=== PATIENT | female | born 1945 | race Caucasian/White ===

== ENCOUNTER 2019-11-15 10:47 | Outpatient (CLI) | payer MEDICARE, SELFPAY ==
[2019-11-15 10:58] LABS: Add Urine Microscopic? YES; Appearance Urine Clear (Clear); Bilirubin Urine Negative (Negative); Blood Urine Negative (Negative); Color Urine Yellow (Yellow); Glucose Urine UA Negative (Negative); Ketones Urine Negative (Negative); Leukocyte Esterase Ur Trace (Negative); Nitrate Urine Negative (Negative); Protein Urine Negative (Negative); Specific Grav Ur 1.025 (1.010-1.020); Urobilinogen Urine 0.2 mg/dL (0.2-1.0); pH Urine 5.5 (5.0-8.0)
[2019-11-15 11:13] LABS: RBC Urine 0-2 /hpf (0-2)
[2019-11-15 11:14] LABS: Bacteria Urine 2+ /hpf; Mucus Urine Few /lpf; Squamous Epithelial Cell Urine Few /hpf (Few)
[2019-11-15 12:48] LABS: Alanine Aminotransferase 16 U/L (14-59); Albumin Level 4.1 g/dL (3.4-5.0); Alkaline Phosphatase 87 U/L (46-116); Anion Gap 12.5 mmol/L (7-16); Aspartate Amino Transferase 23 U/L (15-37); Bilirubin,Total 0.6 mg/dL (0.00-1.00); Blood Urea Nitrogen 21 mg/dL (7-18); Calcium 10.1 mg/dL (8.5-10.1); Carbon Dioxide 30 mmol/L (21-32); Chloride 105 mmol/L (98-108); Cholesterol 178 mg/dL (0-200); Estimated Glomerular Filt Rate 54; Glucose 77 mg/dL (70-99); HDL Direct 75 mg/dL (40-60); LDL Cholesterol Calculated 94 mg/dL (<130); Osmolality Calculated 298 mOsm/kg (285-295); Potassium 4.5 mmol/L (3.5-5.1); Sodium 143 mmol/L (136-145); Total Protein 6.8 g/dL (6.4-8.2); Triglycerides 43 mg/dL (0-150)
[2019-11-15 13:13] LABS: Basophils Absolute Auto 0.06 K/mm3 (0.00-0.10); Basophils Percent Auto 0.9 % (0.0-1.0); Eosinophils Absolute Auto 0.18 K/mm3 (0.02-0.50); Eosinophils Percent Auto 2.6 % (1.0-6.0); Hematocrit 45.2 % (35.0-42.0); Hemoglobin 14.9 g/dL (11.7-13.8); Immature Granulocyte Absolute 0.01 K/mm3 (0.00-0.00); Immature Granulocyte Percent A 0.1 % (0.0-0.0); Lymphocytes Absolute Auto 2.45 K/mm3 (1.10-4.50); Lymphocytes Percent Auto 35.8 % (18.0-42.0); Mean Corpuscular Hemoglobin 30.3 pg (27.0-31.0); Mean Corpuscular Volume 92.1 fL (78.0-102.0); Mean Platelet Volume 12.3 fl (9.2-11.8); Monocytes Absolute Auto 0.52 K/mm3 (0.10-0.90); Monocytes Percent Auto 7.6 % (2.0-11.0); Neutrophils Absolute Auto 3.6 K/mm3 (1.7-7.2); Platelet Count Result 162 K/mm3 (150-420); Red Blood Count 4.91 M/mm3 (4.20-5.40); Red Cell Distribution Width 12.2 % (11.6-14.4); White Blood Count 6.9 K/mm3 (4.8-10.8)
[2019-11-20 20:35] LABS: Vitamin D 25 Hydroxy 37 ng/mL (30-100)
== END 2019-11-15 10:48 | disposition home or self-care (01) ==
LOC: CHSLAB 10:48
PROVIDERS: PCP Internal Medicine; Visit Provider Internal Medicine
DX: E78.2 Mixed hyperlipidemia (principal); I10 Essential (primary) hypertension; K21.9 Gastro-esophageal reflux disease without esophagitis; E55.9 Vitamin D deficiency, unspecified
CPT/HCPCS: 36415; 80053; 80061; 81001; 82306; 85025

== ENCOUNTER 2019-12-18 17:33 | Outpatient (CLI) | payer MEDICARE, SELFPAY ==
--- NOTE | ~2019-12-18 | XR_ITS ---
EXAMINATION: XR chest 2V DATE: 12/18/2019 17:52 INDICATION: Cough and fever TECHNIQUE: PA and lateral views of the chest were obtained. COMPARISON: Chest radiograph dated 10/05/1970 FINDINGS: Change mild hyperexpansion of lungs with mild biapical pleural-parenchymal scarring. Calcified nodule at the right lung base consistent with old granulomatous disease. No new airspace opacities, pulmona ry edema, pleural effusion or pneumothorax. The cardiomediastinal silhouette is normal. Mild thoracic spondylosis. There are few surgical clips projecting over the right breast/anterior right chest wall . IMPRESSION: 1. No acute cardiopulmonary disease. Reviewed, dictated and finalized at location A. 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
[2019-12-18 17:48] LABS: Basophils Absolute Auto 0.07 K/mm3 (0.00-0.10); Eosinophils Absolute Auto 0.16 K/mm3 (0.02-0.50); Eosinophils Percent Auto 2.3 % (1.0-6.0); Hematocrit 46.7 % (35.0-42.0); Hemoglobin 15.5 g/dL (11.7-13.8); Immature Granulocyte Absolute 0.01 K/mm3 (0.00-0.00); Immature Granulocyte Percent A 0.1 % (0.0-0.0); Immature Platelet Fraction Pct 4.1 % (1.0-7.0); Lymphocytes Absolute Auto 1.61 K/mm3 (1.10-4.50); Lymphocytes Percent Auto 23.4 % (18.0-42.0); Mean Corpuscular HGB Conc 33.2 g/dL (32.0-36.0); Mean Corpuscular Hemoglobin 30.2 pg (27.0-31.0); Mean Platelet Volume 11.2 fl (9.2-11.8); Monocytes Absolute Auto 0.78 K/mm3 (0.10-0.90); Monocytes Percent Auto 11.3 % (2.0-11.0); Neutrophils Absolute Auto 4.3 K/mm3 (1.7-7.2); Neutrophils Percent Auto 61.9 % (50.0-70.0); Platelet Count Result 126 K/mm3 (150-420); Red Blood Count 5.13 M/mm3 (4.20-5.40); Red Cell Distribution Width 12.2 % (11.6-14.4); White Blood Count 6.9 K/mm3 (4.8-10.8)
[2019-12-18 18:00] LABS: Alanine Aminotransferase 18 U/L (14-59); Albumin Level 3.9 g/dL (3.4-5.0); Alkaline Phosphatase 93 U/L (46-116); Anion Gap 14.2 mmol/L (7-16); Aspartate Amino Transferase 21 U/L (15-37); Bilirubin,Total 0.6 mg/dL (0.00-1.00); Blood Urea Nitrogen 19 mg/dL (7-18); Calcium 10.1 mg/dL (8.5-10.1); Carbon Dioxide 27 mmol/L (21-32); Chloride 101 mmol/L (98-108); Estimated Glomerular Filt Rate 47; Glucose 116 mg/dL (70-99); Osmolality Calculated 289 mOsm/kg (285-295); Potassium 4.2 mmol/L (3.5-5.1); Sodium 138 mmol/L (136-145); Total Protein 7.5 g/dL (6.4-8.2)
[2019-12-18 18:06] LABS: Influenza Control Valid (Valid)
== END 2019-12-18 17:34 | disposition home or self-care (01) ==
LOC: CHSLAB 17:35
PROVIDERS: PCP Internal Medicine; Visit Provider Internal Medicine
DX: R50.9 Fever, unspecified (principal); R05 Cough
CPT/HCPCS: 36415; 71046; 80053; 85025; 85055; 87804

== ENCOUNTER 2020-02-21 13:23 | Outpatient (CLI) | payer MEDICARE, SELFPAY ==
--- NOTE | ~2020-02-21 | XR_ITS ---
XR chest 2V 02/21/2020 13:58 Indication: Fever. History of breast cancer. Procedure: 2 view chest Comparison: Comparison to multiple prior studies sequentially, with oldest reviewed study dated 11/09. Findings: Heart size normal. There are bilateral peripheral interstitial changes of the lung bases. T he lungs are hyperinflated which is consistent with, but not diagnostic of chronic obstructive pulmon timothy disease. No pleural effusion, edema or pneumothorax. Impression: 1: Bilateral peripheral interstitial changes primarily in the lung bases which may reflect atelectasi s, fibrosis or atypical pneumonia. Reviewed, dictated and finalized at location A. Impression: 1: Bilateral peripheral interstitial changes primarily in the lung bases which may reflect atelectasis, fibrosis or atypical pneumonia.
[2020-02-21 13:40] LABS: Basophils Absolute Auto 0.07 K/mm3 (0.00-0.10); Basophils Percent Auto 0.9 % (0.0-1.0); Eosinophils Absolute Auto 0.65 K/mm3 (0.02-0.50); Hematocrit 42.1 % (35.0-42.0); Hemoglobin 14.1 g/dL (11.7-13.8); Immature Granulocyte Absolute 0.01 K/mm3 (0.00-0.00); Immature Granulocyte Percent A 0.1 % (0.0-0.0); Lymphocytes Absolute Auto 1.79 K/mm3 (1.10-4.50); Mean Corpuscular HGB Conc 33.5 g/dL (32.0-36.0); Mean Corpuscular Hemoglobin 30.3 pg (27.0-31.0); Mean Corpuscular Volume 90.5 fL (78.0-102.0); Mean Platelet Volume 10.9 fl (9.2-11.8); Monocytes Percent Auto 7.4 % (2.0-11.0); Neutrophils Percent Auto 61.6 % (50.0-70.0); Platelet Count Result 167 K/mm3 (150-420); Red Blood Count 4.65 M/mm3 (4.20-5.40); Red Cell Distribution Width 12.4 % (11.6-14.4); White Blood Count 8.2 K/mm3 (4.8-10.8)
[2020-02-21 13:44] LABS: Add Urine Microscopic? YES; Appearance Urine Clear (Clear); Bilirubin Urine Negative (Negative); Blood Urine Negative (Negative); Color Urine Yellow (Yellow); Glucose Urine UA Negative (Negative); Ketones Urine Trace (Negative); Leukocyte Esterase Ur Negative (Negative); Nitrate Urine Negative (Negative); Protein Urine Trace (Negative); Specific Grav Ur 1.025 (1.010-1.020); Urobilinogen Urine 0.2 mg/dL (0.2-1.0); pH Urine 5.5 (5.0-8.0)
[2020-02-21 13:49] LABS: Bacteria Urine 2+ /hpf; Mucus Urine Few /lpf; RBC Urine 0-2 /hpf (0-2); Squamous Epithelial Cell Urine Few /hpf (Few)
[2020-02-21 13:56] LABS: Alanine Aminotransferase 18 U/L (14-59); Albumin Level 3.4 g/dL (3.4-5.0); Alkaline Phosphatase 106 U/L (46-116); Anion Gap 12.9 mmol/L (7-16); Aspartate Amino Transferase 17 U/L (15-37); Bilirubin,Total 0.4 mg/dL (0.00-1.00); Blood Urea Nitrogen 23 mg/dL (7-18); Calcium 10.2 mg/dL (8.5-10.1); Carbon Dioxide 27 mmol/L (21-32); Chloride 105 mmol/L (98-108); Estimated Glomerular Filt Rate 50; Glucose 145 mg/dL (70-99); Osmolality Calculated 298 mOsm/kg (285-295); Potassium 3.9 mmol/L (3.5-5.1); Sodium 141 mmol/L (136-145); Total Protein 6.9 g/dL (6.4-8.2)
== END 2020-02-21 13:24 | disposition home or self-care (01) ==
LOC: CHSLAB 13:25
PROVIDERS: PCP Internal Medicine; Visit Provider Internal Medicine
DX: R50.9 Fever, unspecified (principal)
CPT/HCPCS: 36415; 71046; 80053; 81001; 85025; 87040; 87086

== ENCOUNTER 2020-04-10 07:05 | Emergency (ER) | payer MEDICARE, SELFPAY ==
--- NOTE | ~2020-04-10 | US_ITS ---
EXAMINATION: US right upper quadrant DATE: 04/10/2020 10:10 INDICATION: Upper abdominal pain. TECHNIQUE: Multiple grayscale and Doppler ultrasound images of the abdomen were obtained. COMPARISON: CT abdomen and pelvis 04/10/2020 FINDINGS: The visualized portions of the head and body of the pancreas are normal. There are cysts in the liver measuring up to 3.8 cm. There is normal flow in main portal vein. The gallbladder is diste nded and contains sludge. No gallstones or gallbladder wall thickening. There was no sonographic Murp hy sign. The common duct measures 7 mm, which is normal for age. IMPRESSION: 1. Gallbladder sludge. Gallbladder distention may be secondary to fasting. No gallstones, gallbladder wall thickening, or sonographic Puente sign to suggest acute cholecystitis. Reviewed, dictated and finalized at location A. IMPRESSION: 1. Gallbladder sludge. Gallbladder distention may be secondary to fasting. No g allstones, gallbladder wall thickening, or sonographic Puente sign to suggest a cute cholecystitis.
--- NOTE | ~2020-04-10 | CT_ITS ---
EXAMINATION: CT abdomen pelvis w con INDICATION: Upper abdominal pain TECHNIQUE: Computed tomographic images of the abdomen and pelvis were obtained after the administrati on of 100 cc of Omnipaque 350 intravenous contrast. The dose-length product (DLP) was 865.42 mGy-cm. Automated exposure control and iterative reconstruction technique were employed. COMPARISON: 08/08/2008 FINDINGS: A calcified nodule of the right lower lobe is consistent with old granulomatous disease. Th ere is mild dependent atelectasis. The heart size is normal. Cysts of the liver measure up to 3.8 cm. The spleen, pancreas, and adrenal glands are normal. There is mild intrahepatic and extrahepatic macario iary dilatation. The common bile duct measures up to 9 mm. There is mild gallbladder distention with questionable pericholecystic fat stranding. Cysts of the kidneys measure up to 1.5 cm on the left. No pathologically enlarged abdominal or pelvic lymph nodes are identified. There is a fat-containing um bilical hernia. Colonic diverticulosis is present without evidence of diverticulitis. There is no stone e intraperitoneal gas or evidence of bowel obstruction. IMPRESSION: 1. Mild gallbladder distention, possible pericholecystic fat stranding and mild intrahepatic and extr ahepatic biliary dilatation. Findings could reflect acute cholecystitis with choledocholithiasis alth ough no definite biliary stone or stricture is identified. Consider further evaluation with anaoun d. Reviewed, dictated and finalized at location A. IMPRESSION: 1. Mild gallbladder distention, possible pericholecystic fat stranding and mild intrahepatic and extrahepatic biliary dilatation. Findings could reflect acute cholecystitis with choledocholithiasis although no definite biliary stone or s tricture is identified. Consider further evaluation with ultrasound.
[2020-04-10 07:05] VITALS: BP 175/89; PULSE 67; RESP 18; TEMP 35.5; O2SAT 98
--- NOTE | 2020-04-10 07:17 | ECG_ITS ---
Measurements Intervals [place] Rate: 66 P: 60 MT: 153 QRS: 50 QRSD: 106 T: 63 QT: 411 QTc: 431 Interpretive Statements SINUS RHYTHM NORMAL ECG Electronically Signed On 04-10-2020 7:43:00 CDT by Josep Kearney D.O.
--- NOTE | 2020-04-10 07:28 | ED.ABDPAIN ---
HPI - Abdominal Pain General Chief Complaint: Chest Pain Stated Complaint: PRESSURE UPPER ABD Time Seen by Provider: 04/10/20 07:20 Source: patient Mode of arrival: ambulatory Limitations: no limitations History of Present Illness HPI narrative: 74-year-old woman comes in today complaining of abdominal pain that has been present for weeks or months but this morning got worse. She also has noticed some gradual distention of her abdomen. She denies change in appetite, nausea, vomiting, diarrhea, fever, weight loss or shortness of breath. She has had a negative stress test in the last year and cardiac and urologic evaluations for this discomfort. MD elicited complaint: abdominal pain Pertinent past history: other (esophogeal spasms) Onset (ago): hour(s) Pain Consistency: constant Location: epigastric and suprapubic Quality: sharp Radiation: none Exacerbating factors: nothing Relieving factors: nothing Related Data Home Medications Medication Instructions Recorded Confirmed amitriptyline 5 mg PO HS 09/27/19 04/10/20 mirabegron [Myrbetriq] 25 mg PO DAILY 09/27/19 04/10/20 omeprazole 20 mg PO DAILY 09/27/19 04/10/20 spironolactone 50 mg PO DAILY 09/27/19 04/10/20 tamoxifen 20 mg PO DAILY 09/27/19 04/10/20 Allergies Allergy/AdvReac Type Severity Reaction Status Date / Time No Known Allergies Allergy Verified 09/27/19 10:10 Review of Systems Constitutional: Constitutional: Denies chills, Denies fever(s) and Denies weakness Eyes: Eyes: Denies change in vision and Denies photophobia ENT: Denies dysphagia, Denies nasal congestion and Denies sore throat Cardiovascular: Cardiovascular: Denies chest pain and Denies radiating jaw, neck or arm pain Respiratory: Respiratory: Denies cough, Denies dyspnea and Denies wheezing Gastrointestinal: Gastrointestinal: Reports as per HPI Genitourinary: Genitourinary: Denies hematuria, Denies nocturia and Denies dysuria Musculoskeletal: Musculoskeletal: Denies back pain, Denies arthralgias and Denies joint swelling Integumentary/Breasts: Skin/Breast: Denies pruritus, Denies erythema and Denies rash Neurologic: Denies vertigo, Denies dizziness and Denies syncope Hematologic/Lymphatic: Hematologic/Lymphatic: Denies easy bleeding and Denies easy bruising Allergic/Immunologic: Allergic/Immunologic: Denies lip swelling and Denies wheezing PMFSH Past Medical History Medical History (Updated 04/10/20 @ 10:31 by Neptali Chacko MD) Breast cancer GERD (gastroesophageal reflux disease) Uterine polyp Surgical History Surgical History (Updated 04/10/20 @ 08:28 by Neptali Chacko MD) History of Achilles tendon repair History of dilatation and curettage History of foot surgery History of tonsillectomy Hx of cataract surgery S/P lumpectomy, right breast Family History Family History (Updated 09/27/19 @ 09:29 by Shlomo Coyne MD) Mother , of non-Hodgkin's lymphoma No problems noted. Father , ventricular fibrillation at age 71 No problems noted. Sibling Breast cancer Sibling Heart disease atrial fibrillation Social History Social History Smoking status: Never smoker Alcohol intake: never Substance use: never Living arrangements: with family Exam Const: General: healthy appearing and alert Nutritional Appearance: well nourished Orientation/consciousness: patient oriented x3 Other: Moderate acute distress HENMT: Ears: external ears normal Face and sinus: normal facial exam Mouth: Yes moist mucous membranes Throat: posterior oropharynx normal and uvula midline Eyes: Conjunctivae: conjunctivae normal Pupils: Equal, round and reactive pupils present EOM: EOMs intact bilaterally Resp: Effort & Inspection: normal respiratory effort and not labored Auscultation: clear to auscultation bilaterally, no rales, no rhonchi and no wheezes Cardio
[2020-04-10 07:51] LABS: Basophils Absolute Auto 0.07 K/mm3 (0.00-0.10); Basophils Percent Auto 0.9 % (0.0-1.0); Eosinophils Absolute Auto 0.21 K/mm3 (0.02-0.50); Eosinophils Percent Auto 2.6 % (1.0-6.0); Hematocrit 44.7 % (35.0-42.0); Hemoglobin 14.6 g/dL (11.7-13.8); Immature Granulocyte Absolute 0.02 K/mm3 (0.00-0.00); Immature Granulocyte Percent A 0.2 % (0.0-0.0); Lymphocytes Absolute Auto 2.89 K/mm3 (1.10-4.50); Lymphocytes Percent Auto 35.3 % (18.0-42.0); Mean Corpuscular HGB Conc 32.7 g/dL (32.0-36.0); Mean Platelet Volume 11.5 fl (9.2-11.8); Monocytes Absolute Auto 0.52 K/mm3 (0.10-0.90); Monocytes Percent Auto 6.4 % (2.0-11.0); Neutrophils Absolute Auto 4.5 K/mm3 (1.7-7.2); Neutrophils Percent Auto 54.6 % (50.0-70.0); Platelet Count Result 170 K/mm3 (150-420); Red Blood Count 4.86 M/mm3 (4.20-5.40); Red Cell Distribution Width 12.5 % (11.6-14.4); White Blood Count 8.2 K/mm3 (4.8-10.8)
[2020-04-10 08:03] LABS: Add Urine Microscopic? YES; Appearance Urine Clear (Clear); Bilirubin Urine Negative (Negative); Blood Urine Negative (Negative); Color Urine Yellow (Yellow); Glucose Urine UA Negative (Negative); Ketones Urine Negative (Negative); Leukocyte Esterase Ur Trace LEU/UL (Negative); Nitrate Urine Negative (Negative); Protein Urine Negative (Negative); Specific Grav Ur >= 1.030 (1.010-1.020); Urobilinogen Urine 0.2 mg/dL (0.2-1.0); pH Urine 5.5 (5.0-8.0)
[2020-04-10 08:06] LABS: Partial Thromboplastin Time 28.3 SEC (22.3-31.6); Prothrombin Time 10.5 Seconds (9.64-11.0)
[2020-04-10 08:09] LABS: Alanine Aminotransferase 21 U/L (14-59); Albumin Level 3.5 g/dL (3.4-5.0); Alkaline Phosphatase 99 U/L (46-116); Anion Gap 10.3 mmol/L (7-16); Aspartate Amino Transferase 38 U/L (15-37); Bilirubin,Total 0.6 mg/dL (0.00-1.00); Blood Urea Nitrogen 19 mg/dL (7-18); Calcium 9.7 mg/dL (8.5-10.1); Carbon Dioxide 30 mmol/L (21-32); Chloride 104 mmol/L (98-108); Estimated CRCL calculation 47 ml/min; Estimated Glomerular Filt Rate 51; Glucose 100 mg/dL (70-99); Lipase 226 U/L (73-393); Osmolality Calculated 292 mOsm/kg (285-295); Sodium 140 mmol/L (136-145); Total Protein 6.7 g/dL (6.4-8.2); Troponin I < 0.02 ng/mL (0.00-0.056)
[2020-04-10 08:10] LABS: Potassium 4.3 mmol/L (3.5-5.1)
[2020-04-10 08:13] LABS: RBC Urine 0-2 /hpf (0-2); Squamous Epithelial Cell Urine Few /hpf (Few); WBC Urine 0-3 /hpf (0-3)
[2020-04-10 08:14] LABS: Bacteria Urine Trace /hpf
[2020-04-10] MEDS: MORPHINE SULFATE 2 MG/ML INJ IV PUSH (08:35)
[2020-04-10] MEDS: ONDANSETRON INJ 4 MG/2 ML VIAL IV PUSH (08:35)
--- NOTE | 2020-04-10 09:31 | PC.NURSE ---
deana here for ultrasound.
[2020-04-10 10:42] VITALS: BP 154/80; PULSE 67; RESP 18; TEMP 36.6; O2SAT 97
== END 2020-04-10 10:47 | disposition home or self-care (01) ==
PROVIDERS: Emergency Provider Emergency Medicine; PCP Internal Medicine
DX: R10.9 Unspecified abdominal pain (principal); Z85.3 Personal history of malignant neoplasm of breast
CPT/HCPCS: 36415; 74177; 76705; 80053; 81001; 83690; 84484; 85025; 85610; 85730; 93005; 96374; 96375; 99284; J2270; J2405; Q9965

== ENCOUNTER 2020-04-16 08:57 | Outpatient (CLI) | payer MEDICARE, SELFPAY ==
[2020-04-16 09:45] LABS: Alanine Aminotransferase 46 U/L (14-59); Albumin Level 3.9 g/dL (3.4-5.0); Alkaline Phosphatase 124 U/L (46-116); Anion Gap 12.4 mmol/L (7-16); Aspartate Amino Transferase 22 U/L (15-37); Bilirubin,Total 0.5 mg/dL (0.00-1.00); Blood Urea Nitrogen 19 mg/dL (7-18); Calcium 9.8 mg/dL (8.5-10.1); Carbon Dioxide 30 mmol/L (21-32); Chloride 104 mmol/L (98-108); Estimated Glomerular Filt Rate 57; Glucose 79 mg/dL (70-99); Osmolality Calculated 295 mOsm/kg (285-295); Potassium 4.4 mmol/L (3.5-5.1); Sodium 142 mmol/L (136-145); Total Protein 6.6 g/dL (6.4-8.2)
== END 2020-04-16 08:58 | disposition home or self-care (01) ==
LOC: CHSLAB 08:58
PROVIDERS: PCP Internal Medicine; Visit Provider Internal Medicine
DX: K81.1 Chronic cholecystitis (principal)
CPT/HCPCS: 36415; 80053

== ENCOUNTER 2020-04-20 09:58 | Outpatient (CLI) | payer MEDICARE, SELFPAY | END 2020-04-20 09:59 | disposition home or self-care (01) | PROVIDERS: PCP Internal Medicine; Visit Provider Internal Medicine | DX: Z53.8 Procedure and treatment not carried out for other reasons (principal) | CPT/HCPCS: 99199 ==

== ENCOUNTER 2020-04-22 13:40 | Outpatient (CLI) | payer MEDICARE, SELFPAY ==
--- NOTE | ~2020-04-22 | NM_ITS ---
NM hepatobiliary w pharm 04/22/2020 16:16 Procedure: Hepatobiliary scan performed following IV administration 5.2 mCi Tc 99m Choletec. At 60 m inutes 1.7 mcg CCK administered IV for evaluation of gallbladder ejection fraction. Indication: Chronic cholecystitis. Right upper quadrant pain. Comparison: Ultrasound dated 04/10/[address] dated 04/10/2020 Findings: There is normal radiotracer uptake in the liver parenchyma with prompt excretion into the b iliary tract. Gallbladder visualized at 10-15 minutes minutes. Small bowel visualized at 25-30 min utes minutes. Gallbladder ejection fraction measures 8 %. (Normal is considered 10-90%, but most pat ients with gallbladder dysfunction have GBEF of less than 35%) Impression: 1: Gallbladder ejection fraction below normal limits measuring 8%. Low GBEF is associated with gallb ladder dysfunction, although not specific for acute or chronic cholecystitis. Reviewed, dictated and finalized at location A. Impression: 1: Gallbladder ejection fraction below normal limits measuring 8%. Low GBEF is associated with gallbladder dysfunction, although not specific for acute or ch ronic cholecystitis.
== END 2020-04-22 13:41 | disposition home or self-care (01) ==
LOC: CHSIMG 13:42
PROVIDERS: PCP Internal Medicine; Visit Provider Internal Medicine
DX: K81.1 Chronic cholecystitis (principal)
CPT/HCPCS: 78227; A9537; J2805

== ENCOUNTER 2020-04-28 15:53 | Outpatient (CLI) | payer MEDICARE, SELFPAY ==
[2020-04-28 16:04] LABS: Basophils Absolute Auto 0.06 K/mm3 (0.00-0.10); Basophils Percent Auto 0.6 % (0.0-1.0); Eosinophils Absolute Auto 0.26 K/mm3 (0.02-0.50); Eosinophils Percent Auto 2.7 % (1.0-6.0); Hematocrit 45.8 % (35.0-42.0); Hemoglobin 15.3 g/dL (11.7-13.8); Immature Granulocyte Absolute 0.02 K/mm3 (0.00-0.00); Immature Granulocyte Percent A 0.2 % (0.0-0.0); Lymphocytes Absolute Auto 3.62 K/mm3 (1.10-4.50); Lymphocytes Percent Auto 37.7 % (18.0-42.0); Mean Corpuscular HGB Conc 33.4 g/dL (32.0-36.0); Mean Corpuscular Hemoglobin 30.1 pg (27.0-31.0); Mean Corpuscular Volume 90.2 fL (78.0-102.0); Mean Platelet Volume 10.8 fl (9.2-11.8); Monocytes Absolute Auto 0.61 K/mm3 (0.10-0.90); Monocytes Percent Auto 6.3 % (2.0-11.0); Neutrophils Percent Auto 52.5 % (50.0-70.0); Platelet Count Result 187 K/mm3 (150-420); Red Blood Count 5.08 M/mm3 (4.20-5.40); Red Cell Distribution Width 12.2 % (11.6-14.4); White Blood Count 9.6 K/mm3 (4.8-10.8)
[2020-04-28 16:47] LABS: Alanine Aminotransferase 18 U/L (14-59); Albumin Level 3.9 g/dL (3.4-5.0); Alkaline Phosphatase 110 U/L (46-116); Amylase 62 U/L (25-115); Aspartate Amino Transferase 21 U/L (15-37); Bilirubin,Total 0.6 mg/dL (0.00-1.00); Blood Urea Nitrogen 22 mg/dL (7-18); Calcium 9.8 mg/dL (8.5-10.1); Carbon Dioxide 32 mmol/L (21-32); Chloride 102 mmol/L (98-108); Estimated Glomerular Filt Rate 55; Glucose 81 mg/dL (70-99); Lipase 89 U/L (73-393); Osmolality Calculated 292 mOsm/kg (285-295); Sodium 140 mmol/L (136-145); Total Protein 6.8 g/dL (6.4-8.2)
== END 2020-04-28 15:54 | disposition home or self-care (01) ==
LOC: CHSLAB 15:54
PROVIDERS: PCP Internal Medicine; Visit Provider Internal Medicine
DX: R10.11 Right upper quadrant pain (principal)
CPT/HCPCS: 36415; 80053; 82150; 83690; 85025

== ENCOUNTER 2020-06-05 13:05 | Emergency (ER) | payer MEDICARE, SELFPAY ==
--- NOTE | ~2020-06-05 | XR_ITS ---
EXAMINATION: XR chest 1V portable DATE: 06/05/2020 14:15 INDICATION: Midsternal acute chest pain. TECHNIQUE: A single frontal view of the chest was obtained. COMPARISON: Chest 2 views 02/21/2020, CT abdomen and pelvis 04/10/2020 FINDINGS: A calcified right lung nodule is consistent with old granulomatous disease. No pleural effu amy or pneumothorax. The heart size is normal. There are surgical clips in right chest wall. IMPRESSION: 1. No acute cardiopulmonary disease. Reviewed, dictated and finalized at location B.
--- NOTE | 2020-06-05 13:09 | ECG_ITS ---
Measurements Intervals [place] Rate: 72 P: 51 NH: 145 QRS: 20 QRSD: 98 T: 35 QT: 402 QTc: 443 Interpretive Statements SINUS RHYTHM CONSIDER INFERIOR INFARCT, AGE INDETERMINATE ABNORMAL ECG Electronically Signed On 06-05-2020 13:45:30 CDT by Josep Kearney D.O.
[2020-06-05 13:10] VITALS: BP 177/99; PULSE 78; RESP 16; TEMP 36.7; O2SAT 96
--- NOTE | 2020-06-05 14:06 | ED.GENADULT ---
HPI - General Adult General Chief complaint: Chest Pain Stated complaint: chest pain Source: patient Mode of arrival: ambulatory History of Present Illness HPI narrative: This 74-year-old female awoke at 6:00 a.m. with a 5/10 pressure pain in the epigastric region radiating up into the lower midsternal area. It has decreased somewhat but persists. There is associated dull discomfort 3-4/10 in the posterior shoulders. There is no associated coughing, shortness of breath, shoulder neck or arm symptoms, or melena. Eating, swallowing, exertion, do not affect her symptoms. She feels somewhat more comfortable when standing. She states she has had this discomfort occasionally over the past 10 years. It occurs every couple of years. on 1 occasion she stopped omeprazole and soon afterwards an episode occurred. She was seen on April 10 in the ED with the same symptoms. The note indicates abdominal pain going on for weeks to months which patient says is not accurate. Enoc was diagnosed with possible cholecystitis. She subsequently had a HIDA scan when she was diagnosed with cholelithiasis and had her gallbladder removed on May 21. She denies nausea, vomiting, shortness of breath. She has not been burping. She has a diagnosis of GERD but denies heartburn symptoms. She had a negative cardiac workup 10 years ago. Continues to be followed. Related Data Home Medications Medication Instructions Recorded Confirmed amitriptyline 5 mg PO HS 09/27/19 06/05/20 mirabegron [Myrbetriq] 25 mg PO DAILY 09/27/19 06/05/20 omeprazole 20 mg PO DAILY 09/27/19 06/05/20 spironolactone 50 mg PO DAILY 09/27/19 06/05/20 aspirin 81 mg PO DAILY 06/05/20 06/05/20 cholecalciferol (vitamin D3) 25 mcg PO DAILY 06/05/20 06/05/20 [Vitamin D3] Allergies Allergy/AdvReac Type Severity Reaction Status Date / Time No Known Allergies Allergy Verified 09/27/19 10:10 Review of Systems Constitutional: Constitutional: Denies chills and Denies fever(s) ENT: Denies dysphagia, Denies dizziness and Denies sore throat Cardiovascular: Cardiovascular: Denies rapid heart rate and Denies slow heart rate Respiratory: Respiratory: Reports no additional respiratory complaints Gastrointestinal: Gastrointestinal: Reports no additional gastrointestinal complaints Genitourinary: Genitourinary: Denies dysuria Musculoskeletal: Musculoskeletal: Reports myalgias and Denies joint swelling Integumentary/Breasts: Skin/Breast: Denies rash Neurologic: Denies dizziness and Denies focal weakness Hematologic/Lymphatic: Hematologic/Lymphatic: Denies easy bruising Allergic/Immunologic: Allergic/Immunologic: Denies tongue swelling and Denies wheezing PMFSH Past Medical History Medical History (Updated 06/06/20 @ 00:00 by Yoav Carty) Breast cancer GERD (gastroesophageal reflux disease) Uterine polyp Surgical History Surgical History (Updated 06/05/20 @ 14:14 by Neptali Keller MD) History of Achilles tendon repair History of cholecystectomy History of dilatation and curettage History of foot surgery History of tonsillectomy Hx of cataract surgery S/P lumpectomy, right breast Family History Family History (Updated 06/05/20 @ 14:15 by Neptali Keller MD) Mother , of non-Hodgkin's lymphoma Acute myocardial infarction Father , ventricular fibrillation at age 71 No problems noted. Sibling Breast cancer Sibling Heart disease atrial fibrillation Social History Social History Smoking status: Never smoker Alcohol intake: never Substance use: never Exam Const: General: no acute distress and alert Orientation/consciousness: patient oriented x3 HENMT: Face and sinus: normal facial exam Neck: Neck: no lymphadenopathy Chest: Chest palpation & inspection: normal inspection of the chest and no tenderness Other: points to the midline epigastrium
[2020-06-05] MEDS: MAG HYDROX/ALUMINUM HYD/SIMETH 30 ML, PHENobarb/HYOSCY/ATROPINE/SCOP 32.4 MG, LIDOCAINE... PO (14:20)
[2020-06-05 14:24] LABS: Basophils Absolute Auto 0.16 K/mm3 (0.00-0.10); Basophils Percent Auto 1.6 % (0.0-1.0); Eosinophils Absolute Auto 0.73 K/mm3 (0.02-0.50); Eosinophils Percent Auto 7.1 % (1.0-6.0); Hematocrit 44.7 % (35.0-42.0); Hemoglobin 14.6 g/dL (11.7-13.8); Immature Granulocyte Absolute 0.03 K/mm3 (0.00-0.00); Immature Granulocyte Percent A 0.3 % (0.0-0.0); Lymphocytes Absolute Auto 3.15 K/mm3 (1.10-4.50); Lymphocytes Percent Auto 30.6 % (18.0-42.0); Mean Corpuscular HGB Conc 32.7 g/dL (32.0-36.0); Mean Platelet Volume 10.6 fl (9.2-11.8); Monocytes Absolute Auto 0.51 K/mm3 (0.10-0.90); Monocytes Percent Auto 4.9 % (2.0-11.0); Neutrophils Absolute Auto 5.7 K/mm3 (1.7-7.2); Neutrophils Percent Auto 55.5 % (50.0-70.0); Platelet Count Result 203 K/mm3 (150-420); Red Blood Count 4.86 M/mm3 (4.20-5.40); Red Cell Distribution Width 12.5 % (11.6-14.4); White Blood Count 10.3 K/mm3 (4.8-10.8)
[2020-06-05 14:41] LABS: Alanine Aminotransferase 15 U/L (14-59); Albumin Level 3.6 g/dL (3.4-5.0); Alkaline Phosphatase 102 U/L (46-116); Anion Gap 7 mmol/L (8-16); Aspartate Amino Transferase 17 U/L (15-37); Bilirubin,Total 0.4 mg/dL (0.00-1.00); Blood Urea Nitrogen 18 mg/dL (7-18); Calcium 10.3 mg/dL (8.5-10.1); Carbon Dioxide 28 mmol/L (21-32); Chloride 104 mmol/L (98-108); Estimated Glomerular Filt Rate 57; Glucose 139 mg/dL (70-99); Osmolality Calculated 291 mOsm/kg (285-295); Potassium 4.8 mmol/L (3.5-5.1); Sodium 139 mmol/L (136-145)
[2020-06-05 14:42] LABS: Lipase 321 U/L (73-393); Troponin I < 0.02 ng/mL (0.00-0.056)
[2020-06-05 15:08] VITALS: BP 143/80; PULSE 71; O2SAT 97
== END 2020-06-05 15:09 | disposition home or self-care (01) ==
PROVIDERS: Emergency Provider Family Medicine; PCP Internal Medicine
DX: R07.9 Chest pain, unspecified (principal); R10.13 Epigastric pain
CPT/HCPCS: 36415; 71045; 80053; 83690; 84484; 85025; 93005; 99284; A9270

== ENCOUNTER 2020-06-06 11:30 | Emergency (ER) | payer MEDICARE, SELFPAY ==
[2020-06-06 11:32] VITALS: BP 161/87; PULSE 74; RESP 20; TEMP 36.3; O2SAT 97
--- NOTE | 2020-06-06 11:36 | ECG_ITS ---
Measurements Intervals [place] Rate: 78 P: 70 WV: 128 QRS: 61 QRSD: 95 T: 82 QT: 382 QTc: 436 Interpretive Statements SINUS RHYTHM BORDERLINE ST-T WAVE ABNORMALITY- HIGH LATERAL LEADS BASELINE ARTIFACT- I, II, III, AVR, AVF, V1 BORDERLINE ECG Electronically Signed On 06-08-2020 7:11:58 CDT by Josep Kearney D.O.
[2020-06-06] MEDS: PANTOPRAZOLE SODIUM IV 40 MG VIAL IV PUSH (12:10)
[2020-06-06 12:15] LABS: Basophils Absolute Auto 0.16 K/mm3 (0.00-0.10); Basophils Percent Auto 1.2 % (0.0-1.0); Eosinophils Absolute Auto 0.66 K/mm3 (0.02-0.50); Hematocrit 45.5 % (35.0-42.0); Hemoglobin 14.8 g/dL (11.7-13.8); Immature Granulocyte Absolute 0.05 K/mm3 (0.00-0.00); Immature Granulocyte Percent A 0.4 % (0.0-0.0); Lymphocytes Absolute Auto 2.18 K/mm3 (1.10-4.50); Lymphocytes Percent Auto 16.6 % (18.0-42.0); Mean Corpuscular HGB Conc 32.5 g/dL (32.0-36.0); Mean Corpuscular Volume 92.1 fL (78.0-102.0); Mean Platelet Volume 10.6 fl (9.2-11.8); Monocytes Absolute Auto 0.52 K/mm3 (0.10-0.90); Neutrophils Absolute Auto 9.6 K/mm3 (1.7-7.2); Neutrophils Percent Auto 72.8 % (50.0-70.0); Platelet Count Result 199 K/mm3 (150-420); Red Blood Count 4.94 M/mm3 (4.20-5.40); Red Cell Distribution Width 12.6 % (11.6-14.4); White Blood Count 13.2 K/mm3 (4.8-10.8)
--- NOTE | 2020-06-06 12:15 | PC.NURSE ---
pt ambulated to bathroom , no dizzyness, no chest pain at this time
[2020-06-06 12:27] LABS: Partial Thromboplastin Time 28.6 SEC (22.3-31.6); Prothrombin Time 10.8 Seconds (9.64-11.0)
[2020-06-06 12:29] LABS: Alanine Aminotransferase 44 U/L (14-59); Albumin Level 3.5 g/dL (3.4-5.0); Alkaline Phosphatase 140 U/L (46-116); Anion Gap 7 mmol/L (8-16); Aspartate Amino Transferase 87 U/L (15-37); Bilirubin,Total 0.9 mg/dL (0.00-1.00); Blood Urea Nitrogen 16 mg/dL (7-18); Calcium 9.8 mg/dL (8.5-10.1); Carbon Dioxide 29 mmol/L (21-32); Chloride 102 mmol/L (98-108); Estimated Glomerular Filt Rate 47; Glucose 147 mg/dL (70-99); Lipase 141 U/L (73-393); Osmolality Calculated 290 mOsm/kg (285-295); Potassium 3.9 mmol/L (3.5-5.1); Sodium 138 mmol/L (136-145); Total Protein 6.8 g/dL (6.4-8.2)
[2020-06-06 12:31] LABS: BNP 31 pg/mL (0-100)
--- NOTE | 2020-06-06 12:35 | ED.CHESTPAIN ---
HPI - Chest Pain General Chief Complaint: Chest Pain Stated Complaint: ambulance Source: patient and EMS Mode of arrival: EMS Limitations: no limitations History of Present Illness HPI narrative: This is a 74-year-old female presents with some epigastric burning and chest discomfort, has a history of esophageal spasms and was seen yesterday in our emergency department with some epigastric burning and spasm type atypical chest pain she was worked up pad chest x-ray which was normal and was started on different proton pump inhibitor started on Protonix. Currently this morning patient developed similar episodes of a Flick fascial a burning with atypical chest pain, currently the patient upon my examination is chest pain-free with no epigastric burning currently no nausea vomiting no chest pain no shortness of breath no abdominal pain no dysuria. Patient is not a smoker, no alcohol use does have a history of CAD in her mother father. Patient had a normal cardiac catheterization approximately 2 years ago. Patient had recent laparoscopic cholecystectomy approximately 2 weeks ago. MD complaint: chest pain Onset (ago): day(s) Timing of current episode: episodic Onset: during rest Pain location: substernal and epigastric Pain radiation: none Severity: mild Quality: burning Relieving factors: nothing Exacerbating factors: eating Treatment prior to arrival: aspirin Related Data Home Medications Medication Instructions Recorded Confirmed amitriptyline 5 mg PO HS 09/27/19 06/06/20 mirabegron [Myrbetriq] 25 mg PO DAILY 09/27/19 06/06/20 omeprazole 20 mg PO DAILY 09/27/19 06/06/20 spironolactone 50 mg PO DAILY 09/27/19 06/06/20 aspirin 81 mg PO DAILY 06/05/20 06/06/20 cholecalciferol (vitamin D3) 25 mcg PO DAILY 06/05/20 06/06/20 [Vitamin D3] Allergies Allergy/AdvReac Type Severity Reaction Status Date / Time No Known Allergies Allergy Verified 09/27/19 10:10 Review of Systems Review of Systems: All systems reviewed & are unremarkable except as noted in HPI and below Constitutional: Constitutional: Reports as per HPI and Reports no additional constitutional complaints Eyes: Eyes: Reports as per HPI ENT: Reports system reviewed and no additional complaints, except as documented Cardiovascular: Cardiovascular: Reports as per HPI and Reports no additional cardiovascular complaints Respiratory: Respiratory: Reports as per HPI and Reports no additional respiratory complaints PMFSH Past Medical History Medical History Breast cancer GERD (gastroesophageal reflux disease) Uterine polyp Surgical History Surgical History History of Achilles tendon repair History of cholecystectomy History of dilatation and curettage History of foot surgery History of tonsillectomy Hx of cataract surgery S/P lumpectomy, right breast Family History Family History Mother , of non-Hodgkin's lymphoma Acute myocardial infarction Father , ventricular fibrillation at age 71 No problems noted. Sibling Breast cancer Sibling Heart disease atrial fibrillation Social History Social History Smoking status: Never smoker Alcohol intake: never Substance use: never Exam Const: General: no acute distress and alert Orientation/consciousness: patient oriented x3 HENMT: Head: normal to inspection Eyes: Conjunctivae: conjunctivae normal Pupils: Equal, round and reactive pupils present EOM: EOMs intact bilaterally Neck: Neck: normal visual inspection, no lymphadenopathy and no meningeal signs Chest: Chest palpation & inspection: normal inspection of the chest and tenderness Resp: Effort & Inspection: normal respiratory effort Auscultation: clear to auscultation bilater
[2020-06-06 12:47] LABS: Troponin I < 0.02 ng/mL (0.00-0.056)
[2020-06-06 13:00] VITALS: BP 112/70; PULSE 84; RESP 20; TEMP 36.6; O2SAT 98
== END 2020-06-06 13:07 | disposition home or self-care (01) ==
PROVIDERS: Emergency Provider Emergency Medicine; PCP Internal Medicine
DX: K22.4 Dyskinesia of esophagus (principal); R07.9 Chest pain, unspecified; I10 Essential (primary) hypertension
CPT/HCPCS: 36415; 80053; 83690; 83880; 84484; 85025; 85610; 85730; 93005; 96374; 99284; C9113

== ENCOUNTER 2020-06-16 08:04 | Outpatient (CLI) | payer MEDICARE, SELFPAY ==
[2020-06-16 09:06] LABS: Alanine Aminotransferase 112 U/L (14-59); Albumin Level 3.5 g/dL (3.4-5.0); Alkaline Phosphatase 206 U/L (46-116); Aspartate Amino Transferase 37 U/L (15-37); Bilirubin Direct 0.5 mg/dL (0-0.2); Bilirubin,Total 0.9 mg/dL (0.00-1.00); Total Protein 6.3 g/dL (6.4-8.2)
== END 2020-06-16 08:05 | disposition home or self-care (01) ==
LOC: CHSLAB 08:08
PROVIDERS: PCP Internal Medicine
DX: R10.13 Epigastric pain (principal)
CPT/HCPCS: 36415; 80076

== ENCOUNTER 2020-10-26 13:51 | Outpatient (CLI) | payer MEDICARE, SELFPAY ==
[2020-10-26 14:43] LABS: SARS-CoV-2 Ag Negative (Negative)
== END 2020-10-26 13:52 | disposition home or self-care (01) ==
LOC: CHSLAB 13:53
PROVIDERS: PCP Internal Medicine; Visit Provider Internal Medicine
DX: Z20.828 Contact with and (suspected) exposure to other viral communicable diseases (principal)
CPT/HCPCS: 87426; C9803

== ENCOUNTER 2020-10-29 12:34 | Outpatient (CLI) | payer MEDICARE, SELFPAY ==
[2020-10-29 23:33] LABS: SARS-CoV-2 RNA PCR Positive
== END 2020-10-29 12:35 | disposition home or self-care (01) ==
LOC: CHSLAB 12:36
PROVIDERS: PCP Internal Medicine; Visit Provider Internal Medicine
DX: U07.1 COVID-19 (principal)
CPT/HCPCS: C9803; U0003

== ENCOUNTER 2021-01-13 09:05 | Outpatient (CLI) | payer MEDICARE, SELFPAY ==
--- NOTE | ~2021-01-13 | DEXA_ITS ---
Bone Density Report Name: Frances Bautista Age: 75 Sex: Female Ethnicity: White Date of : 1945 Indication: postmenopausal; screening for osteoporosis; height loss; cancer; Referring Provider: Neptali Guzman Study: Bone densitometry was performed. Exam Date: January 13, 2021 Accession number: [id number] Bone Density: Region BMD T-score Z-score Classification AP Spine(L1-L4) 0.912 -1.2 1.3 Osteopenia Femoral Neck (Left) 0.828 -0.2 2.0 Normal Total Hip (Left) 0.829 -0.9 0.9 Normal Femoral Neck (Right) 0.778 -0.6 1.5 Normal Total Hip (Right) 0.767 -1.4 0.4 Osteopenia Femoral Neck Mean 0.803 -0.4 1.7 Normal Total Hip Mean 0.798 -1.2 0.7 Osteopenia World Health Organization criteria for BMD impression classify patients as: Normal (T-score at or above -1.0), Osteopenia (T-score between -1.0 and -2.5), or Osteoporosis (T-score at or below -2.5). 10-year Fracture Risk(1): Major Osteoporotic Fracture 9.4% Hip Fracture 1.3% Reported Risk Factors: [place] (), Neck BMD=0.778, BMI=29.0 (1) FRAX(R) Version 3.08. Fracture probability calculated for an untreated patient. Fracture probability may be lower if the patient has received treatment. Clinical Information Provided by Patient: Has used the following medications: Vitamin D Has the following medical conditions: Cancer Patient maximum height was 68 Menopause Age: 54 No regular weight bearing exercise Onset of menses at age 10 Number of children 0 Impression: The patient has low bone mass, based on the Right Total Hip T-score. Discussion: BONE DENSITY IS LOW AT ONE OR MORE SKELETAL SITES. This patient's lowest T-score is low at one or more skeletal sites. It meets the World Health Organization's (WHO) criteria for ?low bone mass? (T-score between -1.0 and -2.5). The patient's 10-year risk of fracture as calculated by FRAX is less than the threshold where pharmacological therapy is recommended by the National Osteoporosis Foundation (NOF). However, all treatment decisions require clinical judgment and consideration of individual patient factors, including patient preferences, comorbidities, previous drug use, risk factors not captured in the FRAX model (e.g., frailty, falls, vitamin D deficiency, increased bone turnover, interval significant decline in bone density) and possible under or overestimation of fracture risk by FRAX. The patient should follow a healthful lifestyle (good nutrition with adequate calcium and vitamin D, and appropriate weight-bearing exercise). Follow-Up: Consider repeating this study in 2 to 3 years to reassess this patient's status, or sooner if there is some new clinical indication. Reported by: Dr. Fermin Bermudez on 01/13/2021 9:47:00 AM.
[2021-01-13 09:32] LABS: Add Urine Microscopic? YES; Appearance Urine Clear (Clear); Bilirubin Urine Negative (Negative); Blood Urine Negative (Negative); Color Urine Yellow (Yellow); Glucose Urine UA Negative (Negative); Ketones Urine Negative (Negative); Leukocyte Esterase Ur Trace LEU/UL (Negative); Nitrate Urine Negative (Negative); Protein Urine Negative (Negative); Specific Grav Ur >= 1.030 (1.010-1.020); Urobilinogen Urine 0.2 mg/dL (0.2-1.0); pH Urine 5.5 (5.0-8.0)
[2021-01-13 09:54] LABS: Bacteria Urine Trace /hpf; RBC Urine 0-2 /hpf (0-2); Squamous Epithelial Cell Urine Few /hpf (Few); WBC Urine 0-3 /hpf (0-3)
[2021-01-13 09:58] LABS: Basophils Absolute Auto 0.09 K/mm3 (0.00-0.10); Basophils Percent Auto 1.2 % (0.0-1.0); Eosinophils Absolute Auto 0.22 K/mm3 (0.02-0.50); Eosinophils Percent Auto 2.8 % (1.0-6.0); Hematocrit 47.9 % (35.0-42.0); Hemoglobin 15.6 g/dL (11.7-13.8); Immature Granulocyte Absolute 0.02 K/mm3 (0.00-0.00); Immature Granulocyte Percent A 0.3 % (0.0-0.0); Lymphocytes Absolute Auto 2.95 K/mm3 (1.10-4.50); Lymphocytes Percent Auto 38.1 % (18.0-42.0); Mean Corpuscular HGB Conc 32.6 g/dL (32.0-36.0); Mean Corpuscular Hemoglobin 29.7 pg (27.0-31.0); Mean Corpuscular Volume 91.2 fL (78.0-102.0); Mean Platelet Volume 11.7 fl (9.2-11.8); Monocytes Absolute Auto 0.57 K/mm3 (0.10-0.90); Monocytes Percent Auto 7.4 % (2.0-11.0); Neutrophils Absolute Auto 3.9 K/mm3 (1.7-7.2); Neutrophils Percent Auto 50.2 % (50.0-70.0); Platelet Count Result 185 K/mm3 (150-420); Red Blood Count 5.25 M/mm3 (4.20-5.40); Red Cell Distribution Width 12.3 % (11.6-14.4); White Blood Count 7.8 K/mm3 (4.8-10.8)
[2021-01-13 10:08] LABS: Alanine Aminotransferase 22 U/L (14-59); Albumin Level 4.1 g/dL (3.4-5.0); Alkaline Phosphatase 100 U/L (46-116); Anion Gap 7 mmol/L (8-16); Aspartate Amino Transferase 36 U/L (15-37); Bilirubin,Total 0.8 mg/dL (0.00-1.00); Blood Urea Nitrogen 18 mg/dL (7-18); Calcium 10.1 mg/dL (8.5-10.1); Carbon Dioxide 31 mmol/L (21-32); Chloride 102 mmol/L (98-108); Cholesterol 194 mg/dL (0-200); Estimated Glomerular Filt Rate 55; Free T4 Free Thyroxine 1.05 ng/dL (0.76-1.46); Glucose 83 mg/dL (70-99); HDL Direct 77 mg/dL (40-60); LDL Cholesterol Calculated 106 mg/dL (<130); Osmolality Calculated 290 mOsm/kg (285-295); Potassium 5.1 mmol/L (3.5-5.1); Sodium 140 mmol/L (136-145); Thyroid Stimulating Hormone 0.85 uIU/mL (0.36-3.74); Total Protein 6.9 g/dL (6.4-8.2); Triglycerides 54 mg/dL (0-150)
== END 2021-01-13 09:06 | disposition home or self-care (01) ==
PROVIDERS: PCP Internal Medicine
DX: E78.5 Hyperlipidemia, unspecified (principal); I10 Essential (primary) hypertension; Z78.0 Asymptomatic menopausal state
CPT/HCPCS: 36415; 77080; 80053; 80061; 81001; 84439; 84443; 85025

== ENCOUNTER 2021-06-30 12:35 | Outpatient (CLI) | payer MEDICARE, SELFPAY ==
--- NOTE | ~2021-06-30 | US_ITS ---
EXAMINATION: US art doppler w stephanie BURRIS EXAM DATE: 06/30/2021 14:03 INDICATION: Acute right calf pain and swelling. TECHNIQUE: Segmental pressures and plethysmographic and Doppler waveforms of the brachial and lower e xtremity arteries were obtained. There is no prior study for comparison. FINDINGS: Left radial arterial pressure 141 mm Hg. RIGHT LEG: The ankle-brachial index (OPHELIA) is 1.18 (normal >= 0.9-1). The great toe-brachial index (TBI) is 0.49 (normal >= 0.65). The lower extremity ratios, segmental pressure gradients as follows; Proximal superficial femoral artery:- Could not obtain ( mmHg). Distal superficial femoral artery: ----- 1.37 (193 mmHg). Popliteal: 1.40 (198 mmHg). Dorsalis pedis: 1.06 (140 mmHg). Posterior tibial: 1.18 (167 mmHg). (Normal gradients <= 20-30 mmHg between adjacent levels on the same leg or the same levels on the two legs). Arterial waveforms are biphasic proximally, monophasic belo w the knee. LEFT LEG: The ankle-brachial index (OPHELIA) is 1.16 (normal >= 0.9-1). The great toe-brachial index (TBI) is 0.72 (normal >= 0.65). The lower extremity ratios, segmental pressure gradients as follows; Proximal superficial femoral artery:- Could not obtain ( mmHg). Distal superficial femoral artery: ----- Could not obtain ( mmHg). Popliteal: 1.41 (199 mmHg). Dorsalis pedis: 0.87 (123 mmHg). Posterior tibial: 1.16 (164 mmHg). (Normal gradients <= 20-30 mmHg between adjacent levels on the same leg or the same levels on the two legs). Arterial waveforms are biphasic femoral, monophasic below. IMPRESSION: 1. Right ankle-brachial index 1.18, normal. 2. Left ankle-brachial index 1.16, normal. 3. Mild to moderately decreased right TBI is 0.49 Reviewed, dictated and finalized at location A.
--- NOTE | ~2021-06-30 | US_ITS ---
EXAMINATION: US venous doppler LE EXAM DATE: 06/30/2021 14:03 INDICATION: Acute calf swelling and pain right side. TECHNIQUE: Multiple grayscale, color flow and Doppler images of the lower extremity deep venous syste ms bilaterally were obtained and reviewed. There is no prior study for comparison. FINDINGS: Right side: The right common femoral, femoral and profunda veins demonstrate normal color flow, respi ratory variation, augmentation and compressibility. Compressibility, color flow confirmed within the right popliteal, posterior tibial, peroneal, and greater saphenous veins. Left side: The left common femoral, femoral and profunda veins demonstrate normal color flow, respira tory variation, augmentation and compressibility. Compressibility, color flow confirmed within the l eft popliteal, posterior tibial, peroneal, and greater saphenous veins. IMPRESSION: 1. No lower extremity deep venous thrombosis bilaterally. Reviewed, dictated and finalized at location A.
== END 2021-06-30 12:36 | disposition home or self-care (01) ==
PROVIDERS: PCP Internal Medicine; Visit Provider Internal Medicine
DX: M79.661 Pain in right lower leg (principal); R22.41 Localized swelling, mass and lump, right lower limb
CPT/HCPCS: 93923; 93970

== ENCOUNTER 2021-11-17 10:00 | Outpatient (CLI) | payer MEDICARE, SELFPAY ==
[2021-11-17 10:24] LABS: Basophils Absolute Auto 0.08 K/mm3 (0.00-0.10); Eosinophils Absolute Auto 0.18 K/mm3 (0.02-0.50); Eosinophils Percent Auto 2.3 % (1.0-6.0); Hematocrit 51.3 % (35.0-42.0); Hemoglobin 16.4 g/dL (11.7-13.8); Immature Granulocyte Absolute 0.02 K/mm3 (0.00-0.00); Immature Granulocyte Percent A 0.3 % (0.0-0.0); Lymphocytes Absolute Auto 2.97 K/mm3 (1.10-4.50); Lymphocytes Percent Auto 37.2 % (18.0-42.0); Mean Corpuscular Hemoglobin 30.1 pg (27.0-31.0); Mean Corpuscular Volume 94.3 fL (78.0-102.0); Mean Platelet Volume 11.4 fl (9.2-11.8); Monocytes Absolute Auto 0.58 K/mm3 (0.10-0.90); Monocytes Percent Auto 7.3 % (2.0-11.0); Neutrophils Absolute Auto 4.2 K/mm3 (1.7-7.2); Neutrophils Percent Auto 51.9 % (50.0-70.0); Platelet Count Result 156 K/mm3 (150-420); Red Blood Count 5.44 M/mm3 (4.20-5.40); Red Cell Distribution Width 12.2 % (11.6-14.4)
[2021-11-17 10:31] LABS: Add Urine Microscopic? YES; Appearance Urine Clear (Clear); Bilirubin Urine Negative (Negative); Blood Urine Negative (Negative); Color Urine Yellow (Yellow); Glucose Urine UA Negative (Negative); Ketones Urine Trace (Negative); Leukocyte Esterase Ur 1+ LEU/UL (Negative); Nitrate Urine Negative (Negative); Protein Urine Negative (Negative); Specific Grav Ur >= 1.030 (1.010-1.020); Urobilinogen Urine 0.2 mg/dL (0.2-1.0); pH Urine 5.5 (5.0-8.0)
[2021-11-17 10:37] LABS: Bacteria Urine 1+ /hpf; RBC Urine None seen /hpf (0-2); Squamous Epithelial Cell Urine Few /hpf (Few)
[2021-11-17 11:04] LABS: Alanine Aminotransferase 19 U/L (14-59); Albumin Level 4.1 g/dL (3.4-5.0); Alkaline Phosphatase 106 U/L (46-116); Anion Gap 10 mmol/L (8-16); Aspartate Amino Transferase 18 U/L (15-37); Bilirubin,Total 0.5 mg/dL (0.00-1.00); Blood Urea Nitrogen 23 mg/dL (7-18); Calcium 10.2 mg/dL (8.5-10.1); Carbon Dioxide 27 mmol/L (21-32); Chloride 103 mmol/L (98-108); Cholesterol 196 mg/dL (0-200); Estimated Glomerular Filt Rate > 60; Free T4 Free Thyroxine 0.95 ng/dL (0.76-1.46); Glucose 88 mg/dL (70-99); HDL Direct 76 mg/dL (40-60); LDL Cholesterol Calculated 109 mg/dL (<130); Osmolality Calculated 292 mOsm/kg (285-295); Potassium 4.4 mmol/L (3.5-5.1); Sodium 140 mmol/L (136-145); Thyroid Stimulating Hormone 0.81 uIU/mL (0.36-3.74); Triglycerides 54 mg/dL (0-150)
[2021-11-20 06:40] LABS: Total Triiodothyronine (T3) 96 ng/dL (76-181)
== END 2021-11-17 10:01 | disposition home or self-care (01) ==
LOC: CHSLAB 10:03
PROVIDERS: PCP Internal Medicine; Visit Provider Internal Medicine
DX: I10 Essential (primary) hypertension (principal); R82.90 Unspecified abnormal findings in urine
CPT/HCPCS: 36415; 80053; 80061; 81001; 84439; 84443; 84480; 85025; 87086

== ENCOUNTER 2022-06-11 09:40 | Outpatient (CLI) | payer MEDICARE, SELFPAY ==
[2022-06-11 09:56] LABS: Add Urine Microscopic? YES; Appearance Urine Clear (Clear); Bilirubin Urine Negative (Negative); Blood Urine Negative (Negative); Color Urine Light Yellow (Yellow); Glucose Urine UA Negative (Negative); Ketones Urine Negative (Negative); Leukocyte Esterase Ur Trace (Negative); Nitrate Urine Negative (Negative); Protein Urine Negative (Negative); Specific Grav Ur 1.025 (1.010-1.020); Urobilinogen Urine 0.2 mg/dL (0.2-1.0); pH Urine 5.5 (5.0-8.0)
[2022-06-11 10:00] LABS: Bacteria Urine Trace /hpf; RBC Urine None seen /hpf (0-2); Squamous Epithelial Cell Urine Few /hpf (Few); WBC Urine 0-3 /hpf (0-3)
[2022-06-11 10:11] LABS: Alanine Aminotransferase 17 U/L (14-59); Albumin Level 3.9 g/dL (3.4-5.0); Alkaline Phosphatase 97 U/L (46-116); Anion Gap 3 mmol/L (8-16); Aspartate Amino Transferase 18 U/L (15-37); Bilirubin,Total 0.4 mg/dL (0.00-1.00); Blood Urea Nitrogen 21 mg/dL (7-18); Calcium 10.2 mg/dL (8.5-10.1); Carbon Dioxide 30 mmol/L (21-32); Chloride 105 mmol/L (98-108); Estimated Glomerular Filt Rate 60; Glucose 89 mg/dL (70-99); Osmolality Calculated 288 mOsm/kg (285-295); Potassium 4.5 mmol/L (3.5-5.1); Sodium 138 mmol/L (136-145); Total Protein 6.8 g/dL (6.4-8.2)
[2022-06-14 16:16] LABS: Vitamin D 25 Hydroxy 39 ng/mL (30-100)
== END 2022-06-11 09:41 | disposition home or self-care (01) ==
LOC: CHSLAB 09:42
PROVIDERS: PCP Internal Medicine; Visit Provider Internal Medicine
DX: M81.0 Age-related osteoporosis without current pathological fracture (principal); I10 Essential (primary) hypertension
CPT/HCPCS: 36415; 80053; 81001; 82306

== ENCOUNTER 2023-02-22 08:16 | Outpatient (CLI) | payer MEDICARE, SELFPAY ==
[2023-02-22 08:33] LABS: Basophils Absolute Auto 0.11 K/mm3 (0.00-0.10); Basophils Percent Auto 1.2 % (0.0-1.0); Eosinophils Absolute Auto 0.25 K/mm3 (0.02-0.50); Eosinophils Percent Auto 2.8 % (1.0-6.0); Hematocrit 46.5 % (35.0-42.0); Hemoglobin 15.4 g/dL (11.7-13.8); Immature Granulocyte Absolute 0.03 K/mm3 (0.00-0.00); Immature Granulocyte Percent A 0.3 % (0.0-0.0); Lymphocytes Absolute Auto 3.74 K/mm3 (1.10-4.50); Lymphocytes Percent Auto 42.4 % (18.0-42.0); Mean Corpuscular HGB Conc 33.1 g/dL (32.0-36.0); Mean Corpuscular Hemoglobin 30.3 pg (27.0-31.0); Mean Corpuscular Volume 91.5 fL (78.0-102.0); Monocytes Absolute Auto 0.55 K/mm3 (0.10-0.90); Monocytes Percent Auto 6.2 % (2.0-11.0); Neutrophils Absolute Auto 4.1 K/mm3 (1.7-7.2); Neutrophils Percent Auto 47.1 % (50.0-70.0); Platelet Count Result 165 K/mm3 (150-420); Red Blood Count 5.08 M/mm3 (4.20-5.40); Red Cell Distribution Width 13.3 % (11.6-14.4); White Blood Count 8.8 K/mm3 (4.8-10.8)
[2023-02-22 08:36] LABS: Appearance Urine Clear (Clear); Bilirubin Urine Negative (Negative); Blood Urine Negative (Negative); Color Urine Yellow (Yellow); Glucose Urine UA Negative (Negative); Ketones Urine Negative (Negative); Leukocyte Esterase Ur Trace LEU/UL (Negative); Nitrate Urine Negative (Negative); Protein Urine Negative (Negative); Specific Grav Ur >= 1.030 (1.010-1.020); Urobilinogen Urine 0.2 mg/dL (0.2-1.0); pH Urine 5.5 (5.0-8.0)
[2023-02-22 08:41] LABS: Add Urine Microscopic? YES; Bacteria Urine Trace /hpf; RBC Urine None seen /hpf (0-2); Squamous Epithelial Cell Urine Few /hpf (Few); WBC Urine 0-3 /hpf (0-3)
[2023-02-22 08:42] LABS: Mucus Urine Few /lpf
[2023-02-22 09:00] LABS: Alanine Aminotransferase 17 U/L (14-59); Albumin Level 4.1 g/dL (3.4-5.0); Alkaline Phosphatase 98 U/L (46-116); Anion Gap 6 mmol/L (8-16); Aspartate Amino Transferase 20 U/L (15-37); Bilirubin,Total 0.6 mg/dL (0.00-1.00); Blood Urea Nitrogen 19 mg/dL (7-18); Calcium 10.3 mg/dL (8.5-10.1); Carbon Dioxide 31 mmol/L (21-32); Chloride 103 mmol/L (98-108); Cholesterol 195 mg/dL (0-200); Estimated Glomerular Filt Rate 55; Glucose 98 mg/dL (70-99); HDL Direct 79 mg/dL (40-60); LDL Cholesterol Calculated 106 mg/dL (<130); Osmolality Calculated 292 mOsm/kg (285-295); Potassium 4.3 mmol/L (3.5-5.1); Sodium 140 mmol/L (136-145); Triglycerides 51 mg/dL (0-150)
[2023-02-26 19:24] LABS: Vitamin D 25 Hydroxy 39 ng/mL (30-100)
== END 2023-02-22 08:17 | disposition home or self-care (01) ==
LOC: CHSLAB 08:21
PROVIDERS: PCP Internal Medicine; Visit Provider Internal Medicine
DX: I10 Essential (primary) hypertension (principal); N39.0 Urinary tract infection, site not specified; E78.2 Mixed hyperlipidemia; M81.0 Age-related osteoporosis without current pathological fracture; L20.89 Other atopic dermatitis
CPT/HCPCS: 36415; 80053; 80061; 81001; 82306; 85025

== ENCOUNTER 2023-03-27 17:05 | Emergency (ER) | payer MEDICARE, SELFPAY ==
[2023-03-27 17:12] VITALS: BP 152/82; PULSE 77; RESP 18; TEMP 37; O2SAT 97
--- NOTE | 2023-03-27 17:27 | ED.ALLEREA ---
HPI - Allergic Reaction General Chief complaint: Allergic Reaction Stated complaint: allergic reaction/wasp sting face Time Seen by Provider: 03/27/23 17:18 Source: patient Mode of arrival: ambulatory Limitations: no limitations History of Present Illness HPI narrative: 77-year-old white female was cleaning [place] bathrooms [place] and was stung twice on the face, 1 to the left nares, once on the right upper lip. She has had no shortness of breath, no feeling of throat closing up, however than left nose has swollen and the upper lip swollen, and she reports that that when this has happened in the past Benadryl has helped but she has needed some steroids to keep the swelling down. She took a Benadryl 25 mg prior to coming here. she denies any chest pain, palpitations, near-syncope or syncope. Denies any abdominal pain, nausea vomiting. Related Data Home Medications Medication Instructions Recorded Confirmed amitriptyline 10 mg tablet 5 mg PO HS 09/27/19 03/27/23 mirabegron 25 mg tablet,extended 25 mg PO DAILY 09/27/19 03/27/23 release 24 hr (Myrbetriq) omeprazole 20 mg capsule,delayed 20 mg PO DAILY 09/27/19 03/27/23 release spironolactone 50 mg tablet 50 mg PO DAILY 09/27/19 03/27/23 Allergies Allergy/AdvReac Type Severity Reaction Status Date / Time No Known Allergies Allergy Verified 03/27/23 17:11 Review of Systems Review of Systems: All systems reviewed & are unremarkable except as noted in HPI and below ( HPI) [facility] Past Medical History Medical History (Updated 03/27/23 @ 17:40 by Pablo Su MD) Breast cancer GERD (gastroesophageal reflux disease) Uterine polyp Surgical History Surgical History History of Achilles tendon repair History of cholecystectomy History of dilatation and curettage History of foot surgery History of tonsillectomy Hx of cataract surgery S/P lumpectomy, right breast Family History Family History Mother , of non-Hodgkin's lymphoma Acute myocardial infarction Father , ventricular fibrillation at age 71 No problems noted. Sibling Breast cancer Sibling Heart disease atrial fibrillation Social History Social History Smoking status: Never smoker Alcohol intake: never Substance use: never Living arrangements: with family Exam Narrative: pleasant, well-appearing, appropriately interactive, no acute distress, well oriented, looks younger than her stated age Const: General: cooperative, healthy appearing, comfortable, no acute distress, well developed, alert, awake and Physically active Orientation/consciousness: patient oriented x3 HENMT: Head: normal to inspection, normocephalic and atraumatic Ears: hearing grossly normal bilaterally and external ears normal Face/Nose/Sinus: Normal nasal mucous membranes and turbinates present Mouth: Yes Normal oral and palatal mucosa present, Yes tongue normal, Yes oropharynx normal and Yes moist mucous membranes Teeth and gingiva: dentition normal Throat: posterior oropharynx normal and tonsils normal ( erythematous) Other: patient has erythema and swelling to the left nares, erythema and swelling to the mid and right upper lip, neither place appears to have a retained stinger there is no stridor, no pharyngeal swelling, airway is clear Eyes: General: appearance normal, both eyes and all related structures Alignment and Position: alignment normal and position normal Periorbital: periorbital findings normal Eyelids: eyelids normal Conjunctivae: conjunctivae normal Sclera: sclerae normal Cornea: corneas normal Pupils: Equal, round and reactive pupils present EOM: EOMs intact bilaterally Neck: Neck: normal visual inspection, full ROM and no lymphadenopathy Chest: Chest p
[2023-03-27] MEDS: methylPREDNISolone SOD SUCC 125 MG VIAL IM (17:44)
[2023-03-27] MEDS: LORATADINE 10 MG TABLET PO (17:44)
[2023-03-27 17:55] VITALS: BP 152/82; PULSE 77; RESP 18; TEMP 37; O2SAT 97
== END 2023-03-27 17:56 | disposition home or self-care (01) ==
LOC: CHSED 17:43
PROVIDERS: Emergency Provider Emergency Medicine; PCP Internal Medicine
DX: T63.461A Toxic effect of venom of wasps, accidental (unintentional), initial encounter (principal); Z85.3 Personal history of malignant neoplasm of breast
CPT/HCPCS: 96372; 99283; A9270; J2930

== ENCOUNTER 2023-09-08 08:53 | Outpatient (CLI) | payer MEDICARE, SELFPAY ==
[2023-09-08 09:26] LABS: Basophils Absolute Auto 0.08 K/mm3 (0.00-0.10); Basophils Percent Auto 0.9 % (0.0-1.0); Eosinophils Absolute Auto 0.17 K/mm3 (0.02-0.50); Hematocrit 46.7 % (35.0-42.0); Hemoglobin 15.1 g/dL (11.7-13.8); Immature Granulocyte Absolute 0.02 K/mm3 (0.00-0.00); Immature Granulocyte Percent A 0.2 % (0.0-0.0); Lymphocytes Absolute Auto 4.29 K/mm3 (1.10-4.50); Lymphocytes Percent Auto 49.6 % (18.0-42.0); Mean Corpuscular HGB Conc 32.3 g/dL (32.0-36.0); Mean Corpuscular Hemoglobin 29.7 pg (27.0-31.0); Mean Corpuscular Volume 91.7 fL (78.0-102.0); Mean Platelet Volume 11.6 fl (9.2-11.8); Monocytes Absolute Auto 0.49 K/mm3 (0.10-0.90); Monocytes Percent Auto 5.7 % (2.0-11.0); Neutrophils Absolute Auto 3.6 K/mm3 (1.7-7.2); Neutrophils Percent Auto 41.6 % (50.0-70.0); Platelet Count Result 168 K/mm3 (150-420); Red Blood Count 5.09 M/mm3 (4.20-5.40); Red Cell Distribution Width 11.9 % (11.6-14.4); White Blood Count 8.7 K/mm3 (4.8-10.8)
[2023-09-08 09:29] LABS: Appearance Urine Clear (Clear); Bilirubin Urine Negative (Negative); Blood Urine Negative (Negative); Color Urine Yellow (Yellow); Glucose Urine UA Negative (Negative); Ketones Urine Negative (Negative); Leukocyte Esterase Ur 2+ (Negative); Nitrate Urine Negative (Negative); Protein Urine Trace (Negative); Specific Grav Ur >= 1.030 (1.010-1.020); Urobilinogen Urine 0.2 mg/dL (0.2-1.0)
[2023-09-08 09:36] LABS: Add Urine Microscopic? YES; Bacteria Urine 1+ /hpf; RBC Urine 0-2 /hpf (0-2); Squamous Epithelial Cell Urine Few /hpf (Few)
[2023-09-08 10:08] LABS: Alanine Aminotransferase 18 U/L (14-59); Albumin Level 3.8 g/dL (3.4-5.0); Alkaline Phosphatase 114 U/L (46-116); Anion Gap 4 mmol/L (8-16); Aspartate Amino Transferase 17 U/L (15-37); Bilirubin,Total 0.6 mg/dL (0.00-1.00); Blood Urea Nitrogen 20 mg/dL (7-18); Calcium 10.2 mg/dL (8.5-10.1); Carbon Dioxide 33 mmol/L (21-32); Chloride 104 mmol/L (98-108); Cholesterol 184 mg/dL (0-200); Creatine Kinase 57 U/L (26-192); Estimated Glomerular Filt Rate 46; Glucose 90 mg/dL (70-99); HDL Direct 73 mg/dL (40-60); LDL Cholesterol Calculated 99 mg/dL (<130); Osmolality Calculated 294 mOsm/kg (285-295); Potassium 4.5 mmol/L (3.5-5.1); Sodium 141 mmol/L (136-145); Total Protein 6.7 g/dL (6.4-8.2); Triglycerides 59 mg/dL (0-150)
== END 2023-09-08 08:54 | disposition home or self-care (01) ==
LOC: CHSLAB 08:56
PROVIDERS: PCP Internal Medicine; Visit Provider Internal Medicine
DX: I10 Essential (primary) hypertension (principal); M54.6 Pain in thoracic spine; K21.9 Gastro-esophageal reflux disease without esophagitis
CPT/HCPCS: 36415; 80053; 80061; 81001; 82550; 85025

== ENCOUNTER 2023-11-10 11:43 | Outpatient (CLI) | payer MEDICARE, SELFPAY ==
[2023-11-10 12:43] LABS: Anion Gap 8 mmol/L (8-16); Blood Urea Nitrogen 19 mg/dL (7-18); Calcium 9.7 mg/dL (8.5-10.1); Carbon Dioxide 30 mmol/L (21-32); Chloride 100 mmol/L (98-108); Estimated Glomerular Filt Rate 55; Glucose 121 mg/dL (70-99); Osmolality Calculated 289 mOsm/kg (285-295); Potassium 4.4 mmol/L (3.5-5.1); Sodium 138 mmol/L (136-145)
== END 2023-11-10 11:44 | disposition home or self-care (01) ==
LOC: CHSLAB 11:45
PROVIDERS: PCP Internal Medicine; Visit Provider Internal Medicine
DX: N18.2 Chronic kidney disease, stage 2 (mild) (principal)
CPT/HCPCS: 36415; 80048

== ENCOUNTER 2023-12-08 10:25 | Outpatient (CLI) | payer MEDICARE, SELFPAY ==
--- NOTE | ~2023-12-08 | XR_ITS ---
EXAMINATION: XR chest 2V DATE: 12/08/2023 11:06 INDICATION: 5 days of cough TECHNIQUE: frontal and lateral views of the chest were obtained. COMPARISON: Chest radiograph dated 06/05/2020 FINDINGS: Calcified nodule at the right lung base consistent with old granulomatous disease. No other airspace opacities, pulmonary edema, pleural effusion or pneumothorax. The cardiomediastinal silhouette is nor mal. Surgical clips project over the right hemithorax, likely at the right breast but unable to be id entified on the lateral radiographs. Likely cholecystectomy clips in the upper abdomen. Mild thoracic spondylosis. IMPRESSION: 1. No acute cardiopulmonary disease. Reviewed, dictated and finalized at location A. T LAYER
[2023-12-08 10:53] LABS: Basophils Absolute Auto 0.06 K/mm3 (0.00-0.10); Basophils Percent Auto 0.5 % (0.0-1.0); Eosinophils Absolute Auto 0.04 K/mm3 (0.02-0.50); Eosinophils Percent Auto 0.3 % (1.0-6.0); Hemoglobin 15.9 g/dL (11.7-13.8); Immature Granulocyte Absolute 0.06 K/mm3 (0.00-0.00); Immature Granulocyte Percent A 0.5 % (0.0-0.0); Lymphocytes Percent Auto 12.5 % (18.0-42.0); Mean Corpuscular HGB Conc 32.4 g/dL (32.0-36.0); Mean Corpuscular Hemoglobin 28.9 pg (27.0-31.0); Mean Corpuscular Volume 89.1 fL (78.0-102.0); Mean Platelet Volume 10.8 fl (9.2-11.8); Monocytes Absolute Auto 0.93 K/mm3 (0.10-0.90); Monocytes Percent Auto 7.7 % (2.0-11.0); Neutrophils Absolute Auto 9.4 K/mm3 (1.7-7.2); Neutrophils Percent Auto 78.5 % (50.0-70.0); Platelet Count Result 163 K/mm3 (150-420); Red Cell Distribution Width 13.2 % (11.6-14.4)
[2023-12-08 11:21] LABS: Strep Group A RT-PCR NOT DETECTED (Negative)
[2023-12-08 11:29] LABS: SARS-CoV-2 RNA PCR Negative (Negative)
[2023-12-08 11:31] LABS: Influenza A QL RT-PCR Negative (Negative); Influenza B QL RT-PCR Negative (Negative); RSV RNA, RT-PCR Positive (Negative)
== END 2023-12-08 10:26 | disposition home or self-care (01) ==
LOC: CHSLAB 10:27
PROVIDERS: PCP Internal Medicine; Visit Provider Internal Medicine
DX: J06.9 Acute upper respiratory infection, unspecified (principal); Z20.822 Contact with and (suspected) exposure to COVID-19
CPT/HCPCS: 36415; 71046; 85025; 87637; 87651

== ENCOUNTER 2024-03-02 08:41 | Outpatient (CLI) | payer MEDICARE, SELFPAY ==
[2024-03-02 09:05] LABS: Basophils Percent Auto 0.9 % (0.0-1.0); Eosinophils Absolute Auto 0.24 K/mm3 (0.02-0.50); Eosinophils Percent Auto 2.2 % (1.0-6.0); Hematocrit 46.4 % (35.0-42.0); Hemoglobin 14.9 g/dL (11.7-13.8); Immature Granulocyte Absolute 0.04 K/mm3 (0.00-0.00); Immature Granulocyte Percent A 0.4 % (0.0-0.0); Lymphocytes Absolute Auto 5.22 K/mm3 (1.10-4.50); Lymphocytes Percent Auto 47.2 % (18.0-42.0); Mean Corpuscular HGB Conc 32.1 g/dL (32-36); Mean Corpuscular Hemoglobin 29.5 pg (27.0-31.0); Mean Corpuscular Volume 91.9 fL (78.0-102.0); Mean Platelet Volume 11.2 fl (9.2-11.8); Monocytes Absolute Auto 0.66 K/mm3 (0.10-0.90); Neutrophils Absolute Auto 4.79 K/mm3 (1.70-7.20); Neutrophils Percent Auto 43.3 % (50.0-70.0); Platelet Count Result 161 K/mm3 (150-420); Red Blood Count 5.05 M/mm3 (4.20-5.40); Red Cell Distribution Width 12.5 % (11.6-14.4); White Blood Count 11.1 K/mm3 (4.8-10.8)
[2024-03-02 09:08] LABS: Appearance Urine Clear (Clear); Bilirubin Urine 1+ (Negative); Blood Urine Negative (Negative); Color Urine Dark Yellow (Yellow); Glucose Urine UA Negative (Negative); Ketones Urine Trace (Negative); Leukocyte Esterase Ur Negative LEU/UL (Negative); Nitrate Urine Negative (Negative); Protein Urine Negative (Negative); Specific Grav Ur >= 1.030 (1.010-1.020); pH Urine 5.5 (5.0-8.0)
[2024-03-02 09:13] LABS: Add Urine Microscopic? YES; RBC Urine None seen /hpf (0-2); Squamous Epithelial Cell Urine Occasional /hpf (Few); WBC Urine None seen /hpf (0-3)
[2024-03-02 09:14] LABS: Bacteria Urine Rare /hpf
[2024-03-02 09:58] LABS: Alanine Aminotransferase 15 U/L (14-59); Albumin Level 3.9 g/dL (3.4-5.0); Alkaline Phosphatase 88 U/L (46-116); Anion Gap 6 mmol/L (4-12); Aspartate Amino Transferase 20 U/L (15-37); Bilirubin,Total 0.6 mg/dL (0.00-1.00); Blood Urea Nitrogen 18 mg/dL (7-18); Calcium 10.3 mg/dL (8.5-10.1); Carbon Dioxide 31 mmol/L (21-32); Chloride 106 mmol/L (98-108); Cholesterol 175 mg/dL (0-200); Estimated Glomerular Filt Rate 52; Free T3 2.55 pg/mL (2.18-3.98); Free T4 Free Thyroxine 1.14 ng/dL (0.76-1.46); Glucose 89 mg/dL (70-99); HDL Direct 75 mg/dL (40-60); LDL Cholesterol Calculated 90 mg/dL (<130); Osmolality Calculated 296 mOsm/kg (285-295); Potassium 4.3 mmol/L (3.5-5.1); Sodium 143 mmol/L (136-145); Thyroid Stimulating Hormone 0.99 uIU/mL (0.36-3.74); Total Protein 6.2 g/dL (6.4-8.2); Triglycerides 48 mg/dL (0-150)
== END 2024-03-02 08:42 | disposition home or self-care (01) ==
LOC: CHSLAB 08:43
PROVIDERS: PCP Internal Medicine; Visit Provider Internal Medicine
DX: I10 Essential (primary) hypertension (principal); K21.9 Gastro-esophageal reflux disease without esophagitis; J32.8 Other chronic sinusitis; L20.89 Other atopic dermatitis
CPT/HCPCS: 36415; 80053; 80061; 81001; 84439; 84443; 84481; 85025

== ENCOUNTER 2024-06-29 09:14 | Emergency (ER) | payer MEDICARE, SELFPAY ==
[2024-06-29 09:14] VITALS: BP 132/79; PULSE 77; RESP 18; TEMP 36.9; O2SAT 96
--- NOTE | 2024-06-29 09:16 | ED.SKABFB ---
HPI - Skin/Abscess/Foreign Bdy General Chief complaint: Skin/Abscess/Foreign Body Stated complaint: insect sting Time Seen by Provider: 06/29/24 09:16 Source: patient Mode of arrival: ambulatory Limitations: no limitations History of Present Illness HPI narrative: 7-year-old female with a history of GERD, wasps sting allergy presents to the ED with -- right middle finger swelling after an insect sting yesterday evening. She did not see an insect but felt being stung while she was trying to move some plants. Complains of severe itching in the right middle finger. No throat swelling. No cough or shortness of breath. No lightheadedness. No abdominal pain. No skin rash. MD complaint: insect bite/sting Onset (ago): hour(s) ( 12 hours ago) Tetanus up to date: yes Location: R hand ( right hand middle finger.) Severity: mild Quality: pruritic Relieving factors: none Exacerbating factors: none Context: other Associated symptoms: denies other symptoms Treatments prior to arrival: Benadryl Related Data Home Medications Medication Instructions Recorded Confirmed amitriptyline 10 mg tablet 5 mg PO HS 09/27/19 03/27/23 mirabegron 25 mg tablet,extended 25 mg PO DAILY 09/27/19 03/27/23 release 24 hr (Myrbetriq) omeprazole 20 mg capsule,delayed 20 mg PO DAILY 09/27/19 03/27/23 release spironolactone 50 mg tablet 50 mg PO DAILY 09/27/19 03/27/23 Allergies Allergy/AdvReac Type Severity Reaction Status Date / Time No Known Allergies Allergy Verified 03/27/23 17:11 Review of Systems Review of Systems: All systems reviewed & are unremarkable except as noted in HPI and below Constitutional: Constitutional: Reports as per HPI and Reports no additional constitutional complaints Eyes: Eyes: Reports as per HPI and Reports no additional eye complaints ENT: Reports system reviewed and no additional complaints, except as documented and Reports as per HPI Cardiovascular: Cardiovascular: Reports as per HPI and Reports no additional cardiovascular complaints Respiratory: Respiratory: Reports as per HPI and Reports no additional respiratory complaints Gastrointestinal: Gastrointestinal: Reports as per HPI and Reports no additional gastrointestinal complaints Genitourinary: Genitourinary: Reports no additional female genitourinary complaints and Reports as per HPI Musculoskeletal: Musculoskeletal: Reports no additional musculoskeletal complaints and Reports as per HPI Integumentary/Breasts: Skin/Breast: Reports system reviewed and no additional complaints, except as docu and Reports as per HPI Comments: Right middle finger Neurologic: Reports system reviewed and no additional complaints, except as documented and Reports as per HPI Psychiatric: Psychiatric: Reports no additional psychiatric complaints and Reports as per HPI Endocrine: Endocrine: Reports no additional endocrine complaints and Reports as per HPI Hematologic/Lymphatic: Hematologic/Lymphatic: Reports no additional hematologic/lymphatic complaints and Reports as per HPI Allergic/Immunologic: Allergic/Immunologic: Reports no additional allergic/immunologic complaints and Reports as per HPI COUNTS INCLUDE 234 BEDS AT THE [facility] Past Medical History Medical History (Updated 06/29/24 @ 09:32 by sEcobar Magaña MD) Breast cancer GERD (gastroesophageal reflux disease) Uterine polyp Surgical History Surgical History History of Achilles tendon repair History of cholecystectomy History of dilatation and curettage History of foot surgery History of tonsillectomy Hx of cataract surgery S/P lumpectomy, right breast Family History Family History Mother , of non-Hodgkin's lymphoma Acute myocardial infarction Father , ventricular fibrillation at age 71 No problems noted. Sibling Breast cancer Sibling Heart disease
[2024-06-29] MEDS: FAMOTIDINE 20 MG TABLET PO (09:40)
[2024-06-29] MEDS: methylPREDNISolone SOD SUCC 125 MG VIAL IM (09:41)
== END 2024-06-29 09:48 | disposition home or self-care (01) ==
PROVIDERS: Emergency Provider Internal Medicine Critical Care Medicine; PCP Internal Medicine
DX: S60.462A Insect bite (nonvenomous) of right middle finger, initial encounter (principal); Z85.3 Personal history of malignant neoplasm of breast; W57.XXXA Bitten or stung by nonvenomous insect and other nonvenomous arthropods, initial encounter
CPT/HCPCS: 96372; 99283; A9270; J2919

== ENCOUNTER 2024-07-17 10:42 | Outpatient (CLI) | payer MEDICARE, SELFPAY ==
[2024-07-17 11:11] LABS: Basophils Percent Auto 1.1 % (0.0-1.0); Eosinophils Absolute Auto 0.28 K/mm3 (0.02-0.50); Eosinophils Percent Auto 2.9 % (1.0-6.0); Hemoglobin 13.8 g/dL (11.7-13.8); Immature Granulocyte Absolute 0.03 K/mm3 (0.00-0.00); Immature Granulocyte Percent A 0.3 % (0.0-0.0); Lymphocytes Absolute Auto 4.66 K/mm3 (1.10-4.50); Lymphocytes Percent Auto 49.1 % (18.0-42.0); Mean Corpuscular HGB Conc 32.9 g/dL (32-36); Mean Corpuscular Hemoglobin 29.4 pg (27.0-31.0); Mean Corpuscular Volume 89.6 fL (78.0-102.0); Mean Platelet Volume 11.2 fl (9.2-11.8); Monocytes Absolute Auto 0.57 K/mm3 (0.10-0.90); Neutrophils Absolute Auto 3.86 K/mm3 (1.70-7.20); Neutrophils Percent Auto 40.6 % (50.0-70.0); Platelet Count Result 174 K/mm3 (150-420); Red Blood Count 4.69 M/mm3 (4.20-5.40); Red Cell Distribution Width 12.3 % (11.6-14.4); White Blood Count 9.5 K/mm3 (4.8-10.8)
[2024-07-17 12:09] LABS: Erythrocyte Sedimentation Rate 8 mm/hr (0-20)
[2024-07-17 12:48] LABS: Albumin Level 3.6 g/dL (3.4-5.0); Alkaline Phosphatase 100 U/L (46-116); Anion Gap 9 mmol/L (4-12); Aspartate Amino Transferase 19 U/L (15-37); Bilirubin,Total 0.6 mg/dL (0.00-1.00); Blood Urea Nitrogen 14 mg/dL (7-18); Calcium 10.1 mg/dL (8.5-10.1); Carbon Dioxide 27 mmol/L (21-32); Chloride 104 mmol/L (98-108); Estimated Glomerular Filt Rate 54; Free T4 Free Thyroxine 0.97 ng/dL (0.76-1.46); Glucose 84 mg/dL (70-99); Osmolality Calculated 289 mOsm/kg (285-295); Potassium 4.5 mmol/L (3.5-5.1); Sodium 140 mmol/L (136-145); Thyroid Stimulating Hormone 0.89 uIU/mL (0.36-3.74); Total Protein 6.6 g/dL (6.4-8.2); Vitamin B12 516 pg/mL (193-986)
[2024-07-17 12:59] LABS: Alanine Aminotransferase 16 U/L (14-59)
[2024-07-17 13:03] LABS: CRP < 0.5 mg/dL (0.0-0.9)
[2024-07-18 16:13] LABS: Creatinine, Random Urine 126 mg/dL (20-275); Total Prot/Creat ratio mg/mg 0.063 (0.024-0.184); Total Protein/Creatinine Ratio 63 mg/g creat (24-184)
[2024-07-20 09:03] LABS: Protein, Total 6.4 g/dL (6.1-8.1)
[2024-07-22 13:18] LABS: Abnormal Protein Band 1 0.3 g/dL (NONE DETECTED); Albumin 4.1 g/dL (3.8-4.8); Alpha 1 Globulin 0.3 g/dL (0.2-0.3); Alpha 2 Globulin 0.7 g/dL (0.5-0.9); Beta 1 Globulin 0.5 g/dL (0.4-0.6); Gamma Globulin 0.6 g/dL (0.8-1.7)
[2024-07-23 08:34] LABS: Anti Nuclear Antibody Pattern Nuclear, Speckled
== END 2024-07-17 10:43 | disposition home or self-care (01) ==
PROVIDERS: PCP Internal Medicine; Visit Provider Internal Medicine
DX: G62.9 Polyneuropathy, unspecified (principal); I10 Essential (primary) hypertension
CPT/HCPCS: 36415; 80053; 82570; 82607; 84155; 84156; 84165; 84166; 84439; 84443; 85025; 85652; 86038; 86039; 86140; 86334

== ENCOUNTER 2024-07-31 11:00 | Outpatient (CLI) | payer MEDICARE, SELFPAY ==
[2024-08-06 14:29] LABS: Reference Lab Test Name FLOW CYTOMETRY
== END 2024-07-31 11:01 | disposition home or self-care (01) ==
LOC: CHSLAB 11:02
PROVIDERS: PCP Internal Medicine; Visit Provider Internal Medicine
DX: D72.820 Lymphocytosis (symptomatic) (principal)
CPT/HCPCS: 36415; 88184; 88185

== ENCOUNTER 2024-08-14 11:40 | Outpatient (CLI) | payer MEDICARE, SELFPAY ==
[2024-08-14 11:50] LABS: Basophils Absolute Auto 0.09 K/mm3 (0.00-0.10); Eosinophils Percent Auto 2.3 % (1.0-6.0); Hematocrit 44.7 % (35.0-42.0); Hemoglobin 14.3 g/dL (11.7-13.8); Immature Granulocyte Absolute 0.02 K/mm3 (0.00-0.00); Immature Granulocyte Percent A 0.2 % (0.0-0.0); Lymphocytes Absolute Auto 3.49 K/mm3 (1.10-4.50); Lymphocytes Percent Auto 40.4 % (18.0-42.0); Mean Corpuscular Hemoglobin 28.4 pg (27.0-31.0); Mean Corpuscular Volume 88.7 fL (78.0-102.0); Mean Platelet Volume 11.2 fl (9.2-11.8); Monocytes Absolute Auto 0.87 K/mm3 (0.10-0.90); Monocytes Percent Auto 10.1 % (2.0-11.0); Neutrophils Absolute Auto 3.96 K/mm3 (1.70-7.20); Platelet Count Result 165 K/mm3 (150-420); Red Blood Count 5.04 M/mm3 (4.20-5.40); Red Cell Distribution Width 12.5 % (11.6-14.4); White Blood Count 8.6 K/mm3 (4.8-10.8)
== END 2024-08-14 11:41 | disposition home or self-care (01) ==
LOC: CHSLAB 11:41
PROVIDERS: PCP Internal Medicine; Visit Provider Internal Medicine
DX: J06.9 Acute upper respiratory infection, unspecified (principal)
CPT/HCPCS: 36415; 85025

== ENCOUNTER 2024-09-17 11:00 | Outpatient (CLI) | payer MEDICARE, SELFPAY ==
[2024-09-17 11:11] LABS: Hematocrit 43.4 % (35.0-42.0); Hemoglobin 14.2 g/dL (11.7-13.8); Mean Corpuscular HGB Conc 32.7 g/dL (32-36); Mean Corpuscular Hemoglobin 28.1 pg (27.0-31.0); Mean Corpuscular Volume 85.8 fL (78.0-102.0); Platelet Count Result 161 K/mm3 (150-420); Red Blood Count 5.06 M/mm3 (4.20-5.40); White Blood Count 9.2 K/mm3 (4.8-10.8)
[2024-09-17 11:15] LABS: Add Urine Microscopic? YES; Appearance Urine Clear (Clear); Bilirubin Urine 1+ (Negative); Blood Urine Negative (Negative); Color Urine Yellow (Yellow); Glucose Urine UA Negative (Negative); Ketones Urine Trace (Negative); Leukocyte Esterase Ur Negative (Negative); Nitrate Urine Negative (Negative); Protein Urine Trace (Negative); Specific Grav Ur >= 1.030 (1.010-1.020); Urobilinogen Urine 0.2 mg/dL (0.2-1.0); pH Urine 5.5 (5.0-8.0)
[2024-09-17 11:27] LABS: Bacteria Urine Trace /hpf; Mucus Urine Moderate /lpf; RBC Urine None seen /hpf (0-2); Squamous Epithelial Cell Urine Few /hpf (Few); WBC Urine None seen /hpf (0-3)
[2024-09-17 11:42] LABS: Alanine Aminotransferase 17 U/L (14-59); Albumin Level 4.3 g/dL (3.4-5.0); Alkaline Phosphatase 103 U/L (46-116); Anion Gap 7 mmol/L (4-12); Aspartate Amino Transferase 19 U/L (15-37); Bilirubin,Total 0.7 mg/dL (0.00-1.00); Blood Urea Nitrogen 23 mg/dL (7-18); Calcium 10.9 mg/dL (8.5-10.1); Carbon Dioxide 29 mmol/L (21-32); Chloride 104 mmol/L (98-108); Estimated Glomerular Filt Rate 51; Glucose 87 mg/dL (70-99); Osmolality Calculated 292 mOsm/kg (285-295); Potassium 4.9 mmol/L (3.5-5.1); Sodium 140 mmol/L (136-145); Total Protein 6.7 g/dL (6.4-8.2)
== END 2024-09-17 11:01 | disposition home or self-care (01) ==
LOC: CHSLAB 11:02
PROVIDERS: PCP Internal Medicine; Visit Provider Internal Medicine
DX: I10 Essential (primary) hypertension (principal); K21.9 Gastro-esophageal reflux disease without esophagitis; N39.41 Urge incontinence
CPT/HCPCS: 36415; 80053; 81001; 85027

== ENCOUNTER 2024-10-01 09:28 | Outpatient (CLI) | payer MEDICARE, SELFPAY ==
--- NOTE | 2024-10-01 11:30 | NEURO_ITS ---
Impression: # Complains of pain and numbness of lower extremities. ? 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 ? # Abnormal needle/EMG exam with neurogenic changes. ? # Clinical correlation recommended. Nerve Conduction Studies Anti Sensory Summary Table ?Stim Site NR Peak (ms) P-T Amp (?V) Site1 Site2 Delta-P (ms) Dist (cm) Fredrick (m/s) Left Sup Fibular Anti Sensory (Ant Lat Mall)??? NO RESPONSE 14 cm NR 14 cm Ant Lat Mall 16.0 Right Sup Fibular Anti Sensory (Ant Lat Mall)??? NO RESPONSE 14 cm NR 14 cm Ant Lat Mall 16.0 Left Sural Anti Sensory (Lat Mall)??? NO RESPONSE Calf NR Calf Lat Mall 16.0 Right Sural Anti Sensory (Lat Mall)??? NO RESPONSE Calf NR Calf Lat Mall 16.0 Motor Summary Table ?Stim Site NR Onset (ms) O-P Amp (mV) Site1 Site2 Delta-0 (ms) Dist (cm) Fredrick (m/s) Left Peroneal Motor (Vastus Med) Ankle ? 5.2 0.5 Popit Ankle 10.7 41.0 38 Popit ? 15.9 0.2 Right Peroneal Motor (Vastus Med) Ankle ? 4.6 1.3 Popit Ankle 11.0 42.0 38 Popit ? 15.6 0.5 Left Tibial Motor (Abd Boucher Brev) Ankle ? 5.2 0.9 Knee Ankle 11.1 41.0 37 Knee ? 16.3 0.2 Right Tibial Motor (Abd Boucher Brev) Ankle ? 5.1 0.7 Knee Ankle 11.9 41.0 34 Knee ? 17.0 0.7 F Wave Studies ?NR F-Lat (ms) L-R F-Lat (ms) Left Peroneal (Mrkrs) (EDB) ? 62.46 Right Peroneal (Mrkrs) (EDB)??? NO RESPONSE NR Left Tibial (Mrkrs) (Abd Hallucis)??? NO RESPONSE NR Right Tibial (Mrkrs) (Abd Hallucis)??? DISPERSED RESPONSE NR EMG ?Side Muscle Nerve Root Ins Act Fibs Amp Dur Recrt Comment Right AntTibialis Dp Br Fibular L4-5 Nml Nml Nml >12ms +1 Right Gastroc Tibial S1-2 Nml Nml Nml >12ms +1 Right Fibularis Long Sup Br Fibular L5-S1 Nml Nml Nml >12ms +1 Right Flex Dig Long Tibial L5-S2 Nml Nml Nml >12ms +1 Right Ext Dig Brev Dp Br Fibular L5, S1 Nml Nml Nml >12ms +2 Right QuadratusFem QuadFemoris L4-5, S1 Nml Nml Nml >12ms +1 Left AntTibialis Dp Br Fibular L4-5 Nml Nml Nml >12ms +1 Left Gastroc Tibial S1-2 Nml Nml Nml >12ms +1 Left Fibularis Long Sup Br Fibular L5-S1 Nml Nml Nml >12ms +1 Left Flex Dig Long Tibial L5-S2 Nml Nml Nml >12ms +1 Left Ext Dig Brev Dp Br Fibular L5, S1 Nml Nml Nml >12ms +2 Left QuadratusFem QuadFemoris L4-5, S1 Nml Nml Nml >12ms +1 MTDD
== END 2024-10-01 09:29 | disposition home or self-care (01) ==
LOC: ANHNEURO 09:30
PROVIDERS: PCP Internal Medicine
DX: G62.9 Polyneuropathy, unspecified (principal); R94.131 Abnormal electromyogram [EMG]
CPT/HCPCS: 95886; 95910

== ENCOUNTER 2025-01-06 09:34 | Outpatient (CLI) | payer MEDICARE, SELFPAY ==
[2025-01-06 10:00] LABS: Basophils Absolute Auto 0.08 K/mm3 (0.00-0.10); Basophils Percent Auto 1.1 % (0.0-1.0); Eosinophils Absolute Auto 0.19 K/mm3 (0.02-0.50); Eosinophils Percent Auto 2.5 % (1.0-6.0); Hematocrit 46.9 % (35.0-42.0); Hemoglobin 14.7 g/dL (11.7-13.8); Immature Granulocyte Absolute 0.03 K/mm3 (0.00-0.00); Immature Granulocyte Percent A 0.4 % (0.0-0.0); Lymphocytes Absolute Auto 3.16 K/mm3 (1.10-4.50); Lymphocytes Percent Auto 41.7 % (18.0-42.0); Mean Corpuscular HGB Conc 31.3 g/dL (32-36); Mean Corpuscular Hemoglobin 27.6 pg (27.0-31.0); Mean Corpuscular Volume 88.2 fL (78.0-102.0); Mean Platelet Volume 11.2 fl (9.2-11.8); Monocytes Percent Auto 6.6 % (2.0-11.0); Neutrophils Absolute Auto 3.61 K/mm3 (1.70-7.20); Neutrophils Percent Auto 47.7 % (50.0-70.0); Platelet Count Result 169 K/mm3 (150-420); Red Blood Count 5.32 M/mm3 (4.20-5.40); Red Cell Distribution Width 13.8 % (11.6-14.4); White Blood Count 7.6 K/mm3 (4.8-10.8)
[2025-01-06 10:02] LABS: Add Urine Microscopic? NO; Appearance Urine Clear (Clear); Bilirubin Urine Negative (Negative); Blood Urine Negative (Negative); Color Urine Yellow (Yellow); Glucose Urine UA Negative (Negative); Ketones Urine Negative (Negative); Leukocyte Esterase Ur Negative LEU/UL (Negative); Nitrate Urine Negative (Negative); Protein Urine Negative (Negative); Specific Grav Ur >= 1.030 (1.010-1.020); Urobilinogen Urine 0.2 mg/dL (0.2-1.0); pH Urine 5.5 (5.0-8.0)
--- OUTSIDE RECORDS SUMMARY | 2025-01-06 10:36 | XMS_ITS | Continuity of Care Document ---
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 Role Phone Bulmaro Roberts MD Unavailabl e Allergies, Adverse Reactions, Alerts Substance Reaction Status Criticality No Known Allergies Active No Inform ation Medications Medication Instructions Dosage Effective Dates (start - stop) Status Comments estradiol 0.5 mg tablet - Active Prometrium 100 mg capsule take 2 capsule by oral route every day for 12 days in the evening sequentially per 28 day cycle 200 MG - Active spironolactone 50 mg tablet - Active amitriptyline 10 mg tablet - Active Myrbetriq 25 mg tablet,extended release take 1 tablet by oral route every day swallowing whole with water. Do not crush, chew and/or divide. 25 MG - Active omeprazole 20 mg capsule,delayed release take 1 capsule by oral route every day 30 minutes to 1 hour before a meal 20 MG - Active aspirin 81 mg tablet,delayed release - Active Vitamin D2 50,000 unit capsule - Active Procedures Procedure Date Kenalog 10mg/mL Asp/inject Minor joint or bursa w/o US g uidance Office/outpatient visit,[facility] 2023 [facility] [employer] [facility] Kenalog Triamcinolone acetonide inj Asp/inject Minor joint or bursa w/o US g uidance Office/outpatient visit,[facility] 2017 Advance Directives Directive Yes / No Effective Date File Name No Information Encounters Encounter Description Practice Location Reason(s) For Visit Diagnoses Date Provider Providers Copied on Encounter Office/outpa tient visit,[facility], [address] [address], [place], [place], [id number], [place] tel:[phone] [facility] Left hand (chief complaint) 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 [address] [facility], [address], [place], [place], [id number], [place]. tel:[phone] Referring Provider: Bulmaro Godwin, [address] [facility], [place], [address]. 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 [address] [facility], [address], [place], [place], [id number], [place]. tel:[phone] Referring Provider: Bianca Narayan, [address] [place] [address], [address]. tel:[phone] Family History Family Member Type Diagnosis Age At Onset Mother Problem (finding) Heart Disease Mother Problem (finding) Cancer, unknown Father Problem (finding) Heart Disease Father Problem (finding) Hypertension Father Problem (finding) Gout Father Problem (finding) Kidney Disease Father Problem (finding) Diabetes Immunizations Vaccine Date Status Comments influenza, injectable, quadr ivalent, (3 years or older) administered Source: Other Provid er Payers Payer name Insurance type Covered alliance party ID Authoriza tion(s) [employer] Medicare CI [id number] Social History Type Description Quantity Date Captured Comments Alcohol Use Details Unknown Caffeine Use Details Unknown Tobacco Use Status No Information Smoking Status Never smoker Non-Smoking Tobacco Use Details : No Details Available : No Details Available Sex Female Vital Signs Date / Time: Height Weight BMI Pulse Rate Blood Pressure Temperature Respiratory Rate Body Surface Area Head Circumference Head Circ. Percentile Wt./Enrico. Percentile BMI percentile Pulse Ox Inhaled Ox 10:11 AM 68.00 in 79.379 kg (175.00 lbs) 26.6 1 kg/m raheem (2) Chief Complaint And Reason For Visit From encounter dated '10/25/2023 10:10'. Left hand (chief complaint). Description: Frances presents to the office today on October 25, 2023. She is here because of left thumb pain. Frances had been seen in my office almost 6 years ago back on January 11, 2018. At that time she was diagnosed with osteoarthritis at the carpometacarpal joint at the base of the left thumb, and I gave her a cortisone injection for the left thumb CMC joint osteoarthritis. I also gave Frances a [place] Thumb Spica Splint at that time. Frances returns today reporting that her left hand responded well to the cortisone injection, but the thumb has been painfulagain for the past few months. The pain is worse with activities such as holding a abraham in her left h and. She is here today for further evaluation and treatment of her left thumb. Reason For Referral Reason For Referral No Information History Of Present Illness Encounter Date Complaint History Of Prese nt Illness Left hand Frances presents to the office today on October 25, 2023. She is here because of left thumb pain. Frances had been seen in my office almost 6 years ago back on January 11, 2018. At that time she was diagnosed with osteoarthritis at the carpometacarpal joint at the base of the left thumb, and I gave her a cortisone injection for the left thumb CMC joint osteoarthritis. I also gave Frances a [place] Thumb Spica Splint at that time. Frances returns today reporting that her left hand responded well to the cortisone injection, but the thumb has been painful again for the past few months. The pain is worse with activities such as holding a abraham in her left hand. She is here today for further evaluation and treatment of her left thumb. left hand Frances presents to the office today on January 11, 2018. She is here because of pain in the left hand. She localizes her left hand pain to the base of the left thumb. She does not recall any specific injury, but the pain has been present for about 3 months. She rates the pain a 4 on a scale of 0-10. Frances describes the pain as aching. The pain is worse with activities such as pushing. She presents today for further evaluation and treatment of her left hand pain. She had x-rays taken at [facility] on January 01, 2018. I reviewed these x-ray images myself, and they show joint space narrowing at the carpometacarpal joint at the base of the left thumb. There is also joint space irregularity and small osteophyte formation. The x-rays are consistent with osteoarthritis of the carpometacarpal joint at the base of the left thumb. Functional Status Date Functional Assessmen t No Information Instructions Date Instruction Additional Infor mation No Information Assessments Type Assessment Date assessment Unilateral primary o steoarthritis of first carpometacarpal joint, left hand impression We discussed treatme nt options for the left thumb carpometacarpal joint osteoarthritis. We decided to try another cortisone injection today. I injected the carpometacarpal joint at the base of the left thumb today with 1.0 cc lidocaine and 1.0 cc Kenalog for the osteoarthritis at the carpometacarpal joint at the base of the left thumb. Frances may advance her activities as tolerated. She may follow up as needed. Frances may also call with any questions or concerns. Patient Care Teams Name Effective Dates (start - stop) Status Members No Information
--- OUTSIDE RECORDS SUMMARY | 2025-01-06 10:36 | XMS_ITS | Referral Summary ---
Author Organization [facility] Building [address] Address [address] [place] [address] Care Team Providers Care Account Development Specialist Name Role Phone Bianca Boothe MD Primary Care Provider Vincent Watts MD Unavailable [phone] Rose Marie Goyal MD Unavailable Huan Ureña MD Unavailable [phone] Cara Silva NP Unavailable Maisha Mabry MD Unavailable Encounters Date Type Department Care Team Description 12/17/2024 Documentation [facility] [address] [place] [phone] Lynette Rivera RN 11/25/2024 10:34 AM CAR SPOTTER - 11/25/2024 11:59 PM CAR SPOTTER Hospital Encounter [facility] [address] [place] [phone] Multiple thyroid nodules Discharge Disposition: Discharge to home or self care 11/14/2024 Orders Only [facility] [address] [place] [phone] Maisha Mabry MD Multiple thyroid nodules (Primary Dx) 11/13/2024 9:34 AM CAR SPOTTER - 11/13/2024 11:59 PM CAR SPOTTER Hospital Encounter [facility] [address] [place] [phone] Thyroid nodule Discharge Disposition: Discharge to home or self care 11/06/2024 Documentation [facility] [address] [place] [phone] Lynette Rivera RN 11/06/2024 8:30 AM CAR SPOTTER Lab [facility] [address] [place] [phone] CLL (chronic lymphocytic leukemia) (HCC) 11/06/2024 8:45 AM CAR SPOTTER Office Visit [facility] [address] [place] [phone] Maisha Mabry MD CLL (chronic lymphocytic leukemia) (HCC) (Primary Dx); Thyroid nodule 11/04/2024 8:32 AM CAR SPOTTER - 11/04/2024 11:59 PM CAR SPOTTER Hospital Encounter [facility] [address] [place] [phone] [facility] Small lymphocytic lymphoma (HCC) Discharge Disposition: Discharge to home or self care 10/17/2024 Orders Only [facility] [address] [place] [phone] Maisha Mabry MD Small lymphocytic lymphoma (HCC) (Primary Dx) 10/11/2024 12:26 PM CAR SPOTTER - 10/11/2024 11:59 PM CAR SPOTTER Hospital Encounter [facility] [address] [place] [phone] Lymphocytosis Discharge Disposition: Discharge to home or self care 10/11/2024 10:41 AM CAR SPOTTER - 10/11/2024 11:59 PM CAR SPOTTER Hospital Encounter [facility] [address] [facility] [address] [place] [address] Screening mammogram, encounter for Discharge Disposition: Discharge to home or self care from Last 3 Months Allergies Active Allergy Reactions Criticality Noted Date Comments Adhesive Tape-Silicones Rash,Blisters High Medications spironolactone (ALDACTONE) 50 mg tablet Take 1 tablet (50 mg total) by mouth 2 (two) times a day Active amitriptyline (ELAVIL) 10 mg tablet Take 1 tablet (10 mg total) by mouth nightly Active cholecalciferol (VITAMIN D-3) 1,000 unit Take 1 tablet/capsu le (1,000 Units total) by mouth every other day Active aspirin 81 mg tablet Take 1 tablet (81 mg total) by mouth 2 (two) times a week Active omeprazole (PriLOSEC) 20 mg capsule Take 1 capsule (20 mg total) by mouth daily Active Active Problems Problem Noted Date Diagnosed Date 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 I made no change in her excellent medical regimen today. I asked her to follow up with me annually, or sooner if needed. I again advised her to continue to diet and exercise regularly. Assessment & Plan (05/27/2022 11:23 AM CDT): Stable, mild coronary disease only, without angina. I made no change in her excellent medical regimen today. I asked her to follow up with me annually, or sooner if needed. I again advised her to diet and exercise regularly. Assessment & Plan (07/19/2021 10:07 AM CDT): Stable, without angina. I made no change in her excellent medical regimen today. I asked her to follow up with me annually, or sooner if needed. I again advised her to diet and exercise regularly. Hypercholesteremia 07/16/2021 Assessment & Plan (06/02/2023 11:14 AM CDT): Lipids are well controlled. Continue same therapy. Assessment & Plan (05/27/2022 11:23 AM CDT): Lipids are well controlled. Continue same therapy. Assessment & Plan (07/19/2021 10:08 AM CDT): Lipids are well controlled. Continue same therapy. Abnormal mammogram of left breast 10/23/2020 Chronic cholecystitis with calculus 05/13/2020 Calculus of gallbladder with chronic cholecystitis without obstruction 05/13/2020 Overview (05/13/2020): Added automatically from request for surgery [id number] History of right breast cancer 11/22/2018 Cancer Staging:Pathologic stage from 12/31/2018:Stage 0(pTis (DCIS), cN0, cM0, ER+, AL+, HER2: Not Assessed) - Signed by Cara Silva NP on 12/31/2018 Essential hypertension, benign 08/10/2017 Assessment & Plan (06/02/2023 11:13 AM CDT): Well controlled. Continue same therapy. Continue diet and exercise. Assessment & Plan (05/27/2022 11:23 AM CDT): Blood pressure is well controlled. Continue same therapy. Continue diet and exercise. Assessment & Plan (07/19/2021 10:08 AM CDT): Systolic pressure is high today, but is very well controlled in general. I asked her to continue to monitor her blood pressure carefully at home, and to report if elevated. Continue same therapy. Continue diet and exercise. Assessment & Plan (08/11/2017 2:09 PM CDT): Blood pressure is well controlled. Continue same therapy. Psoriasis 12/02/2015 Angioma 09/10/2014 Basal cell carcinoma (BCC) of face 11/01/2012 Tinea pedis 05/16/2011 Overview (02/01/2018): Description: Tinea Pedis Benign neoplasm of skin of trunk 05/16/2011 Overview (02/01/2018): Description: Benign Skin Neoplasm Of The Trunk Resolved Problems Problem Noted Date Diagnosed Date Resolved Date Post-operative state 12/31/2018 019 Precordial pain 08/11/2017 06/01/2023 Assessment & Plan (08/11/2017 2:09 PM CDT): The patient has recurrent atypical chest discomfort occurring at rest, but some features are concerning for angina. I recommended a stress echocardiogram to re-evaluate left ventricular function and to rule out any significant ischemia. Further recommendations will await these results. I made no change in her excellent medical regimen today. Social History Tobacco Use Types Packs/Day Years Used Date Smoking Tobacco: Never Smokeless Tobacco: Never Tobacco Cessation:Counseling Given: Not Answered Alcohol Use Standard Drinks/Week Comments No 0 (1 standard drink = 0.6 oz pur e alcohol) Comments No Sex and Gender Information Value Date Recorded Sex Assigned at Not on file Legal Sex Female 11:41 PM CAR SPOTTER Gender Identity Not on file Sexual Orientation Not on file Last Filed Vital Signs Vital Sign Reading Time Taken Comments Blood Pressure 132/70 11/06/2024 8:37 AM CAR SPOTTER Pulse 71 11/06/2024 8:37 AM CAR SPOTTER Temperature 36.1 C (96.9 F) 11/06/2024 8:37 AM CAR SPOTTER Respiratory Rate 18 11/06/2024 8:37 AM CAR SPOTTER Oxygen Saturation 100% 11/06/2024 8:37 AM CAR SPOTTER Inhaled Oxygen Concentration - - Weight 86.1 kg (189 lb 12.8 oz) 11/06/2024 8:37 AM CAR SPOTTER Height 172.7 cm (5' 8 ) 10/03/2024 10:2 4 AM CAR SPOTTER Body Mass Index 28.86 10/03/2024 10:24 AM CAR SPOTTER Plan of Treatment Not on file Procedures Procedure Name Priority Date/Time Associated Diagnosis Comments MISC PATH REFER Routine 11/28/2024 12:18 PM CAR SPOTTER US GUIDED THYROID FINE NEEDLE ASPIRATION 1ST LESION Schedule Routine, Read Routine (OP Routine) 11/25/2024 1:07 PM CAR SPOTTER Multiple thyroid nodules CYTOLOGY Routine 11/25/2024 12:59 PM CAR SPOTTER Multiple thyroid nodules US THYROID Schedule Routine, Read Routine (OP Routine) 11/13/2024 10:25 AM CAR SPOTTER Thyroid nodule FLOW LEUKEMIA/LYMPHOMA Routine 8:30 AM CAR SPOTTER CLL (chronic lymphocytic leukemia) (HCC) DIFFERENTIAL AUTO Routine 11/06/2024 8:3 0 AM CAR SPOTTER CBC WITH AUTO DIFFERENTIAL Routine 11/06/2024 8:30 AM CAR SPOTTER IGVH MUTATION ANALYSIS BY PCR-GENPATH Routine 11/06/2024 8:30 AM CAR SPOTTER CLL (chronic lymphocytic leukemia) (HCC) CLL FISH CHRONIC LYMPHOCYTICLEUKEMIA Routine 11/06/2024 8:30 AM CAR SPOTTER CLL (chronic lymphocytic leukemia) (HCC) SURGICAL PATHOLOGY Routine 11/06/2024 8: 23 AM CAR SPOTTER PET/CT FDG SKULL TO THIGH Schedule Routine, Read Routine (OP Routine) 11/04/2024 10:17 AM CAR SPOTTER Small lymphocytic lymphoma (HCC) POCT GLUCOSE DEVICE Routine 11/04/2024 8 :[address] CHEST ABDOMEN PELVIS W CONTRAST Schedule Routine, Read Routine (OP Routine) 10/11/2024 1:45 PM CAR SPOTTER Lymphocytosis SCREENING MAMMOGRAM BILATERAL W KLYE Schedule Routine, Read Routine (OP Routine) 10/11/2024 11:01 AM CAR SPOTTER Screening mammogram, encounter for from Last 3 Months Results * Misc Path Refer (11/28/2024 12:18 PM CAR SPOTTER) Desired Testing Afirma Performing Lab Veracyte [facility] Specimen Collected Date 11/25/2024 [facility] Path Result See scanned report [facility] Tissue 11/28/2024 12:1 8 PM CAR SPOTTER 11/28/2024 12:20 PM CAR SPOTTER Maisha Mabry MD LAB BLOOD ORDERABLES Fin al Result [facility] [address] [place] [address] * US Guided Thyroid Fine Needle Aspiration 1st Lesion (11/25/2024 1:07 PM CAR SPOTTER) Anatomical Region Laterality Modality Thyroid N/A Ultrasound 11/25/2024 1:52 PM CAR SPOTTER Impressions 11/25/2024 1:52 PM CAR SPOTTER 1. Successful thyroid biopsy of the 1.2cm nodule in the isthmus 2. Successful thyroid biopsy of the 1.0cm nodule in the right mid thyroid Electronically signed by: Kait Quiñones PA-C Narrative 11/25/2024 1:52 PM CAR SPOTTER EXAMINATION: ULTRASOUND-GUIDED THYROID FINE NEEDLE ASPIRATION HISTORY: Multiple thyroid nodules COMPARISON: US thyroid 11/13/2024 FINDINGS: Biopsy #: 1 Nodule reference number based on prior diagnostic ultrasound: #5 on thyroid US worksheet Size: 1.2 x 0.7 x 0.9 cm Maximum Size: 1.2 cm Location: Isthmus ACR TI-RADS risk category: TR5 (7 or more points) Reason for biopsy: meets ACR TI-RADS criteria Biopsy #: 2 Nodule reference number based on prior diagnostic ultrasound: #3 on thyroid US worksheet Size: 1.0 x 0.7 x 0.6 cm Maximum Size: 1.0 cm Location: Right mid ACR TI-RADS risk category: TR5 (7 or more points) Reason for biopsy: meets ACR TI-RADS criteria FINE NEEDLE ASPIRATION: The procedure for ultrasound-guided FNA and its benefits and risks were explained to the patient. Risks were explained to include, but not be limited to, bleeding, infection, injury to adjacent organs, non-diagnostic specimen and adverse reaction to medications administered. The patient voiced understanding and wished to proceed and signed the consent form. Sites were localized for fine needle aspiration. The sites were prepped and draped in the usual manner. 5 mL of 1% Lidocaine was used for local anesthesia. 6 passes were made with 25 gauge needles into the lesions. Appropriate needle localization was documented with continuous sonographic guidance. The fine needle aspirates were handed to the director of cardiac cath lab present during the procedure. Please refer to the dictated cytology report for final interpretation. Hemostasis at the insertion site was readily achieved. The patient's skin was cleaned with peroxide and dressed. The patient tolerated the procedure well without immediate complication. The patient left the department in stable condition. Procedure Note Kait Quiñones PA - 11/25/2024 EXAMINATION: ULTRASOUND-GUIDED THYROID FINE NEEDLE ASPIRATION HISTORY: Multiple thyroid nodules COMPARISON: US thyroid 11/13/2024 FINDINGS: Biopsy #: 1 Nodule reference number based on prior diagnostic ultrasound: #5 on thyroid US worksheet Size: 1.2 x 0.7 x 0.9 cm Maximum Size: 1.2 cm Location: Isthmus ACR TI-RADS risk category: TR5 (7 or more points) Reason for biopsy: meets ACR TI-RADS criteria Biopsy #: 2 Nodule reference number based on prior diagnostic ultrasound: #3 on thyroid US worksheet Size: 1.0 x 0.7 x 0.6 cm Maximum Size: 1.0 cm Location: Right mid ACR TI-RADS risk category: TR5 (7 or more points) Reason for biopsy: meets ACR TI-RADS criteria FINE NEEDLE ASPIRATION: The procedure for ultrasound-guided FNA and its benefits and risks were explained to the patient. Risks were explained to include, but not be limited to, bleeding, infection, injury to adjacent organs, non-diagnostic specimen and adverse reaction to medications administered. The patient voiced understanding and wished to proceed and signed the consent form. Sites were localized for fine needle aspiration. The sites were prepped and draped in the usual manner. 5 mL of 1% Lidocaine was used for local anesthesia. 6 passes were made with 25 gauge needles into the lesions. Appropriate needle localization was documented with continuous sonographic guidance. The fine needle aspirates were handed to the director of cardiac cath lab present during the procedure. Please refer to the dictated cytology report for final interpretation. Hemostasis at the insertion site was readily achieved. The patient's skin was cleaned with peroxide and dressed. The patient tolerated the procedure well without immediate complication. The patient left the department in stable condition. IMPRESSION: 1. Successful thyroid biopsy of the 1.2cm nodule in the isthmus 2. Successful thyroid biopsy of the 1.0cm nodule in the right mid thyroid Electronically signed by: DANIELLA HerreraC Result [facility] Maisha Mabry MD [facility] US PROCEDURES Final Result * Cytology (11/25/2024 12:59 PM CAR SPOTTER) Fluid (Thyroid Gland (Cytology)) 11/25/2024 1:00 PM CAR SPOTTER Narrative PATHOLOGY [facility] - 11/27/2024 2:38 PM CAR SPOTTER [address] [address] Tele: Lety Garcia MD - Recreation Program Coordinator Note to Patients: This report may contain a detailed description of human tissue sent by a health care provider to the laboratory for pathologic evaluation. The content of this report is essential for diagnosis and may provide important critical findings. This information may be unfamiliar to patients to review without a medical professional present. It is advised that the patient review this report in the presence of a health care provider who can answer questions and explain the details. CYTOLOGY REPORT Patient Name: FRANCES WILDER Address: [place] [address] Gender: F : 1945 (Age: 79) Service: Location: N : [id number] Hospital #: [id number] Patient Type [facility] ANCILLARY Taken: 11/25/2024 Reported: 11/27/2024 Physician(s): PABLITO Nick M.D. Rajneesh S. Jain, M.D. 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 ADDENDA: Addendum Comment This field contains a PDF document (see scanned image which follows report). If your system does not support PDF viewing, please refer to [facility] or the original report to view the PDF document. Farhana Bass M.D. Date Ordered: 12/16/2024 Status: Signed Out Date Complete: 12/16/2024 By: Farhana Bass M.D. Date Reported: 12/17/2024 SPECIMEN TYPE: A: ISTHMUS B: RIGHT THYROID MID CLINICAL DIAGNOSIS AND HISTORY: Multiple thyroid nodules GROSS DESCRIPTION: A. Received are four air-dried and four alcohol-fixed glass slides, each labeled Michele, Herbert/44/A. Four slides are submitted for Diff-Quik stain; four slides are submitted for Pap stain. Also received in CytoRich Red in a container labeled Frances Wilder L and Isthmus are 10 ml of clear red fluid without sediment. Submitted for two Pap-stained cytospins and cell block. B. Received are four air-dried and fou alcohol-fixed glass slides, each labeled Herbert Wilder/44/B. Four slides are submitted for Diff-Quik stain; four slides are submitted for Pap stain. Also received in CytoRich Red in a container labeled Frances Wilder L and Right thyroid mid are 10 ml of clear red fluid without sediment. Submitted for two Pap-stained cytospins and cell block. MICROSCOPIC DESCRIPTION: The aspirate smears, cytospin preparations, cell block sections of the isthmus are reviewed. Hurthle cells are noted on each. No definitive colloid is seen. The differential diagnosis includes Hurthle cell metaplasia in nodular hyperplasia and a Hurthle cell neoplasm. Afirma testing will be submitted. The aspirate smears, cytospin preparations and cell block sections of the right mid thyroid are also reviewed. Follicular cells without significant atypia are noted on each. Colloid is seen on some aspirate smears and on the cytospin preparations. Clerical Data Follows A; 55413, 20077` B; 20190, 15138` REPORT IMAGES AND/OR SCANNED DOCUMENTS ONLY VIEWABLE IN PDF FORMAT The immunohistochemical test(s) cited in this report, if any, was developed and its performance characteristics determined by [facility]. It has not been cleared or approved by the U.S. Food and Drug Administration. The FDA has determined that such clearance or approval is not necessary. This test is used for clinical purposes. It should not be regarded as investigational or for research. [facility] is certified under the Clinical Laboratory Improvement Amendments of 1988 (CLIA) as qualified to perform high complexity testing. Immunostains were performed on formalin-fixed paraffin embedded tissue using a polymer diaminobenzidine chromogen detection system. Antibodies used may include clone 1D5 (mouse monoclonal, estrogen receptor), clone [id number] (mouse monoclonal progesterone receptor), MIB-1 (mouse monoclonal, Ki- 67), and [id number] (rabbit polyclonal, c-kit). In the event that immunohistochemistry or special stains have been performed, attending physician has confirmed appropriateness of controls. Frozen section, operating room consultation, gross examination and dissection, and case sign out may have been performed in part or completely in the following laboratories: [facility], [address] [place] [id number] [place] [address], [address] [place] [id number]. Maisha Mabry MD LAB CYTOLOGY ORDERABLES Final Result [facility]OLOG[facility] Laboratory Receiving [address] [place] [address] * US Thyroid (11/13/2024 10:25 AM CAR SPOTTER) Anatomical Region Laterality Modality Head and Neck N/A Ultrasound 11/13/2024 11:1 9 AM CAR SPOTTER Impressions 11/13/2024 11:19 AM CAR SPOTTER 1. Indeterminate TR 5 nodule in the lower thyroid isthmus appears to correlate with the abnormal CT PET images. Biopsy of this nodule is recommended. 2. There is an additional indeterminate nodule in the right thyroid lobe which is a TR 5 nodule. Biopsy of this nodule recommended as well. 3. Additional thyroid nodules require follow-up ultrasound in 12 months. Electronically signed by: Kiel Farrell M.D. Narrative 11/13/2024 11:19 AM CAR SPOTTER Thyroid sonogram HISTORY:Thyroid nodule on PET study. Technique: Ultrasound examination of the thyroid and adjacent soft tissues was performed using a high-resolution real-time high-resolution small parts scanner. FINDINGS Thyroid size: The right thyroid lobe measures 6.4 x 2.5 x 2.9 cm. The left thyroid lobe measures 5.9 x 1.9 x 2.2 cm. Correlation is made with CT PET images from 11/04/2024. The thyroid is heterogeneous. In the isthmus of the thyroid is a solid markedly hypoechoic TR 5 nodule which is taller than wide and contains punctate foci measuring 12 mm greatest dimension. This is most consistent with the abnormal PET images. Biopsy of this lesion is recommended. There are multiple nodules elsewhere in the thyroid gland and multiple subcentimeter nodules. In the mid to lower posterior right thyroid is a 12 mm solid hypoechoic nodule with peripheral calcifications. Follow-up sonogram recommended in 12 months. There is a TR 4 nodule in the right lower thyroid of 12 mm. In the right mid thyroid is an irregular 10 mm solid hypoechoic TR 5 nodule with punctate foci. Biopsy of this TR 5 nodule is recommended. In the upper right thyroid is a solid hypoechoic TR 4 nodule of 11 mm. Follow-up ultrasound recommended in 12 months for this nodule. There are multiple subcentimeter nodules on the left with attention on follow-up ultrasound in 12 months recommended Procedure Note Kiel Farrell MD - 11/13/2024 Thyroid sonogram HISTORY:Thyroid nodule on PET study. Technique: Ultrasound examination of the thyroid and adjacent soft tissues was performed using a high-resolution real-time high-resolution small parts scanner. FINDINGS Thyroid size: The right thyroid lobe measures 6.4 x 2.5 x 2.9 cm. The left thyroid lobe measures 5.9 x 1.9 x 2.2 cm. Correlation is made with CT PET images from 11/04/2024. The thyroid is heterogeneous. In the isthmus of the thyroid is a solid markedly hypoechoic TR 5 nodule which is taller than wide and contains punctate foci measuring 12 mm greatest dimension. This is most consistent with the abnormal PET images. Biopsy of this lesion is recommended. There are multiple nodules elsewhere in the thyroid gland and multiple subcentimeter nodules. In the mid to lower posterior right thyroid is a 12 mm solid hypoechoic nodule with peripheral calcifications. Follow-up sonogram recommended in 12 months. There is a TR 4 nodule in the right lower thyroid of 12 mm. In the right mid thyroid is an irregular 10 mm solid hypoechoic TR 5 nodule with punctate foci. Biopsy of this TR 5 nodule is recommended. In the upper right thyroid is a solid hypoechoic TR 4 nodule of 11 mm. Follow-up ultrasound recommended in 12 months for this nodule. There are multiple subcentimeter nodules on the left with attention on follow-up ultrasound in 12 months recommended IMPRESSION: 1. Indeterminate TR 5 nodule in the lower thyroid isthmus appears to correlate with the abnormal CT PET images. Biopsy of this nodule is recommended. 2. There is an additional indeterminate nodule in the right thyroid lobe which is a TR 5 nodule. Biopsy of this nodule recommended as well. 3. Additional thyroid nodules require follow-up ultrasound in 12 months. Electronically signed by: Kiel Farrell M.D. Maisha Mabry MD IMG US PROCEDURES Final Result * Flow Leukemia/Lymphoma Blood (11/06/2024 8:30 AM CAR SPOTTER) Goel Stain Test Completed Comment:Testing performed by : [facility], [address] [place]., [address] Leukemia/Lymp andie Result See separate Surgical Pathology report. [facility] Comment:Testing performed by : [facility], [address] [place]., [address] Blood 11/06/2024 8:30 AM CAR SPOTTER 11/06/2024 11:45 AM CAR SPOTTER Maisha Mabry MD LAB PATHOLOGY ORDERABLES Final Result [facility] [address] Department [place] [address] * CLL FISH chronic lymphocyticleukemia (11/06/2024 8:30 AM CAR SPOTTER) CLL FISH Chronic LymphocyticLeukemia Panel-GenPath See scanned report Blood 11/06/2024 8:30 AM CAR SPOTTER 11/06/2024 9:00 AM CAR SPOTTER us Maisha Mabry MD LAB BLOOD ORDERABLES Fin al Result [facility] [address] [place] [address] * Differential, auto (11/06/2024 8:30 AM CAR SPOTTER) Neutrophil abs 3.9 1.5 - 6.5 K/cumm Imm gran abs 0.0 0.0 - 0.1 K/cumm [facility] Lymphocyte abs 3.3 0.8 - 3.3 K/cumm [facility] Monocyte abs 0.7 0.2 - 0.8 K/cumm [facility] Eosinophil abs 0.2 0.0 - 0.5 K/cumm [facility] Basophil abs 0.1 0.0 - 0.1 K/cumm [facility] Neutrophil pct 47.9 % [facility] Comment: Interpretive Data Percent cell count reference ranges are not reported, since discordance with absolute values may lead to misinterpretation of CBC data. Current Interpretive Data was last revised on 2018. Imm gran pct 0.2 % [facility] Comment: Interpretive Data Percent cell count reference ranges are not reported, since discordance with absolute values may lead to misinterpretation of CBC data. Current Interpretive Data was last revised on 2018. Lymphocyte pct 40.0 % [facility] Comment: Interpretive Data Percent cell count reference ranges are not reported, since discordance with absolute values may lead to misinterpretation of CBC data. Current Interpretive Data was last revised on 2018. Monocyte pct 8.6 % [facility] Comment: Interpretive Data Percent cell count reference ranges are not reported, since discordance with absolute values may lead to misinterpretation of CBC data. Current Interpretive Data was last revised on 2018. Eosinophil pct 2.3 % [facility] Comment: Interpretive Data Percent cell count reference ranges are not reported, since discordance with absolute values may lead to misinterpretation of CBC data. Current Interpretive Data was last revised on 2018. Basophil pct 1.0 % [facility] Comment: Interpretive Data Percent cell count reference ranges are not reported, since discordance with absolute values may lead to misinterpretation of CBC data. Current Interpretive Data was last revised on 2018. Blood 11/06/2024 8:30 AM CAR SPOTTER 11/06/2024 8:30 AM CAR SPOTTER Maisha Mabry MD LAB BLOOD ORDERABLES Fin al Result Performing Organization Address City/[facility]/ZIP Co de Phone Number [facility] [address] Department [place] [address] * IgVH Mutation Analysis by PCR-[facility] (11/06/2024 8:30 AM CAR SPOTTER) [facility] IgVH Mutation Analysis by PCR-[facility] See scanned report Blood 11/06/2024 8:30 AM CAR SPOTTER 11/06/2024 9:00 AM CAR SPOTTER Maisha Mabry MD LAB BLOOD ORDERABLES Fin al Result Performing Organization Address [facility] Co de Phone Number [facility] [address] [place] [address] * (ABNORMAL) CBC with auto differential (11/06/2024 8:30 AM CAR SPOTTER) [facility] WBC 8.2 3.8 - 9.9 K/cumm Hgb 14.5 11.9 - 15.5 g/dL [facility] Hct 45.5 35.6 - 45.5 % [facility] Plt 167 150 - 400 K/cumm [facility] MPV 11.3 9.1 - 12.3 fL [facility] RBC 5.21(H) 3.90 - 5.20 M/cumm [facility] MCV 87.3 81.3 - 96.4 fL [facility] MCH 27.8 27.1 - 33.3 pg [facility] MCHC 31.9(L) 32.3 - 35.7 g/dL [facility] RDW CV 13.7 11.1 - 14.9 % [facility] RDW SD 43.8 35.7 - 48.1 fL [facility] NRBC abs 0.00 0.00 - 0.01 K/cumm [facility] Blood 11/06/2024 8:30 AM CAR SPOTTER 11/06/2024 8:30 AM CAR SPOTTER Maisha Mabry MD LAB BLOOD ORDERABLES Fin al Result [place] [address] Department [place] [address] * Surgical pathology (11/06/2024 8:23 AM CAR SPOTTER) Peripheral Blood For Pathologist Review 11/06/2024 8:23 AM CAR SPOTTER 11/06/2024 10:06 AM CAR SPOTTER Narrative 11/08/2024 4:03 PM CAR SPOTTER [place] [id number] [place], [place] [address] Tele: Lety Garcia MD - Recreation Program Coordinator FLOW CYTOMETRY REPORT Note to Patients: This report may contain a detailed description of human tissue sent by a health care provider to the laboratory for pathologic evaluation. The content of this report is essential for diagnosis and may provide important critical findings. This information may be unfamiliar to patients to review without a medical professional present. It is advised that the patient review this report in the presence of a health care provider who can answer questions and explain the details. Patient Name: FRANCES WILDER Address: [place] [address] Gender: F : 1945 (Age: 79) Service: Location: Hospital #: [id number] Patient Type: MBC INFUSION SERIES Taken: 11/06/2024 Received: 11/06/2024 Reported: 11/08/2024 Physician(s): Maisha Mabry M.D. DIAGNOSIS: Peripheral blood, flow cytometric immunophenotypic analysis: - CD5 negative CD10 negative monoclonal B-cell population identified, see comment - No abnormal T-cell population identified 11/08/2024 16:03 Examining Pathologist: Floyd Latif MD, PhD Report Reviewed and Electronically Signed By Floyd Latif MD, PhD DIAGNOSIS COMMENT: Flow cytometric analysis of the peripheral blood reveals 16% B-cells without coexpression of CD5 or CD10. The B-cell population is negative for CD200. The B-cell population is monoclonal demonstrating surface immunoglobulin lambda light chain restriction. CD22 is dim to moderately positive on the B-cell population. CD34 is negative. CD38 is dim to negative in the B-cell population. The B-cell population is small based on forward scatter data. CD3 positive T-cells comprise 15% of total events and do not demonstrate abnormal loss of T-cell antigen expression. The CD4: CD8 ratio is 5.1. CD3 negative CD5 6 positive lymphocytes compatible with NK cells comprise 12% of the lymphoid population which is not increased. T-LGL are not increased. The monocyte and granulocytic populations do not demonstrate overt angina expression or maturation abnormalities. This analysis indicates a CD5 negative CD10 negative monoclonal B-cell population. The differential diagnosis includes monoclonal B-cell lymphocytosis as well as marginal zone lymphoma and lymphoplasmacytic lymphoma. Atypical CLL is a possibility but with a negative result for CD5 and CD200 is unlikely. 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 Clerical Data Follows 11140-00 REPORT IMAGES AND/OR SCANNED DOCUMENTS ONLY VIEWABLE IN PDF FORMAT The flow cytometry study included in this report is developed and its performance characteristics determined by [facility] Pathology Department and/or [facility]. It has not been cleared or approved by the U.S Food and Drug Administration (FDA) and FDA has determined that such clearance or approval is not necessary. This test is used for clinical purpose and it should not be regarded as investigational or for research. [facility] and/or [facility] is certified under the Clinical Laboratory Amendment of 1988 (CLIA) as qualified to perform high complex testing Maisha Mabry MD LAB PATHOLOGY ORDERABLES Final Result * PET/CT FDG Skull to Thigh (11/04/2024 10:17 AM CAR SPOTTER) Anatomical Region Laterality Modality N/A Positron Emissio n Tomography (PET) 11/04/2024 11:5 5 AM CAR SPOTTER Impressions 11/04/2024 12:03 PM CAR SPOTTER 1. No FDG avid lymphadenopathy above or below the diaphragm. No evidence of extra german FDG avid disease. 2. Mildly hypermetabolic soft tissue thickening along the resection site in the right breast is consistent with expected postsurgical changes. 3. Multinodular thyroid goiter with 1 cm moderately FDG avid thyroid isthmic nodule, which is indeterminate. Recommend further evaluation with dedicated thyroid ultrasound. Dictated by: Barak Gupta MD The radiology attending physician has personally reviewed this study, and had reviewed and/or edited this written report and agrees with it. Electronically signed by: DO Checo Lezama 11/04/2024 12:03 PM CAR SPOTTER EXAMINATION: TUMOR FDG-PET/CT IMAGING DATE OF STUDY: 11/04/2024 SCANNER: [facility] RADIOPHARMACEUTICAL: 18.0 mCi F-18 Fluorodeoxyglucose (FDG) i.v. 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 Patient also has a history of right-sided breast cancer status post partial mastectomy (12/12/2018), adjuvant radiation, and tamoxifen therapy. The study is requested for diagnosis. Initial treatment strategy. TECHNIQUE: The patient's fasting blood glucose level, measured by glucometer before injection of FDG, was 76 mg/dL. After intravenous administration of FDG, noncontrast CT images were obtained for attenuation correction and for fusion with emission PET images to allow for anatomical localization of PET findings. Emission PET images were then obtained. The study was interpreted on the [employer] workstation. The mean liver SUV (reported for quality and reliability engineer purposes) is 3.8. The total scanned area was skull base to proximal thighs. Images of the body were obtained starting 64 minutes after injection of tracer. All reported SUVs are maximum SUVs, unless otherwise specified. COMPARISON: None available DESCRIPTORS OF LESION FDG AVIDITY: Minimal: <= blood pool Mild: > blood pool and <= liver Moderate: > liver and <= 2x SUVmax liver Moderate to marked: >2x SUVmax liver and <= 3x SUVmax liver Marked: > 3x SUVmax liver FINDINGS: Spleen is normal in size with uptake less than liver. No hypermetabolic lymphadenopathy identified above or below the diaphragm. There is a moderately hypermetabolic mixed cystic and solid 1 cm thyroid isthmic nodule with SUV of 4.7 (image 83). Additional non-FDG avid thyroid nodules are noted. Postsurgical changes of right partial mastectomy are noted with mildly hypermetabolic soft tissue thickening along the surgical site with SUV of 3.8 (image 120). Multiple areas of photopenia within the liver correspond to simple cysts. Degenerative pattern of uptake is noted in the right shoulder and right posterior acetabulum.. Additional CT findings: Bilateral lens replacements. Mild biapical pleural parenchymal scarring. Calcified pulmonary nodules are noted. Coronary artery calcifications are present. Small hiatal hernia. Colonic diverticulosis without diverticulitis. Small fat-containing umbilical hernia. Procedure Note Vdaim Hatfield DO - 11/04/2024 EXAMINATION: TUMOR FDG-PET/CT IMAGING DATE OF STUDY: 11/04/2024 SCANNER: [facility] RADIOPHARMACEUTICAL: 18.0 mCi F-18 Fluorodeoxyglucose (FDG) i.v. 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 Patient also has a history of right-sided breast cancer status post partial mastectomy (12/12/2018), adjuvant radiation, and tamoxifen therapy. The study is requested for diagnosis. Initial treatment strategy. TECHNIQUE: The patient's fasting blood glucose level, measured by glucometer before injection of FDG, was 76 mg/dL. After intravenous administration of FDG, noncontrast CT images were obtained for attenuation correction and for fusion with emission PET images to allow for anatomical localization of PET findings. Emission PET images were then obtained. The study was interpreted on the [employer] workstation. The mean liver SUV (reported for quality and reliability engineer purposes) is 3.8. The total scanned area was skull base to proximal thighs. Images of the body were obtained starting 64 minutes after injection of tracer. All reported SUVs are maximum SUVs, unless otherwise specified. COMPARISON: None available DESCRIPTORS OF LESION FDG AVIDITY: Minimal: <= blood pool Mild: > blood pool and <= liver Moderate: > liver and <= 2x SUVmax liver Moderate to marked: >2x SUVmax liver and <= 3x SUVmax liver Marked: > 3x SUVmax liver FINDINGS: Spleen is normal in size with uptake less than liver. No hypermetabolic lymphadenopathy identified above or below the diaphragm. There is a moderately hypermetabolic mixed cystic and solid 1 cm thyroid isthmic nodule with SUV of 4.7 (image 83). Additional non-FDG avid thyroid nodules are noted. Postsurgical changes of right partial mastectomy are noted with mildly hypermetabolic soft tissue thickening along the surgical site with SUV of 3.8 (image 120). Multiple areas of photopenia within the liver correspond to simple cysts. Degenerative pattern of uptake is noted in the right shoulder and right posterior acetabulum.. Additional CT findings: Bilateral lens replacements. Mild biapical pleural parenchymal scarring. Calcified pulmonary nodules are noted. Coronary artery calcifications are present. Small hiatal hernia. Colonic diverticulosis without diverticulitis. Small fat-containing umbilical hernia. IMPRESSION: 1. No FDG avid lymphadenopathy above or below the diaphragm. No evidence of extra german FDG avid disease. 2. Mildly hypermetabolic soft tissue thickening along the resection site in the right breast is consistent with expected postsurgical changes. 3. Multinodular thyroid goiter with 1 cm moderately FDG avid thyroid isthmic nodule, which is indeterminate. Recommend further evaluation with dedicated thyroid ultrasound. Dictated by: Barak Gupta MD The radiology attending physician has personally reviewed this study, and had reviewed and/or edited this written report and agrees with it. Electronically signed by: Vadim Hatfield DO Maisha Mabry MD IMG PET PROCEDURES Final Result * POCT glucose (11/04/2024 8:49 AM CAR SPOTTER) Glucose, POC 76 70 - 199 mg/dL Comment: For Glucose values <35 mg/dl when Hematocrit is >60 mg/dl,the test may not accurately detect significant hypoglycemia,and testing in the Laboratory should be considered if clinically indicated. Blood 11/04/2024 8:49 AM CAR SPOTTER 11/04/2024 8:49 AM CAR SPOTTER Maisha Mabry MD LAB POCT ORDERABLES - DE VICE Final Result [facility] [address] [place] [address] * CT chest abdomen pelvis with contrast (10/11/2024 1:45 PM CAR SPOTTER) Anatomical Region Laterality Modality Body N/A Computed Tomogra phy 10/11/2024 1:55 PM CAR SPOTTER Impressions 10/11/2024 1:[address] chest impression: 1. No definite adenopathy in the chest. 2. Small scattered lung nodules, nonspecific. 3. Enlarged heterogeneous thyroid gland which contains several nodules. 4. Additional details above.. CT abdomen and pelvis: There are no prior studies for correlation. Possibly a tiny hiatal hernia.. There is no acute fracture or acute bone destruction. The size of the spleen is normal. There is a 1 cm slightly hypodense renal lesion on the left which could be a hemorrhagic cyst. Renal ultrasound recommended for further clarification.. The left adrenal gland appears normal. A subcentimeter hypodense lesion of the lower most right kidney is probably a cyst but too small to characterize with certainty.. The right adrenal gland appears normal. There is no evidence of pancreatitis or significant pancreatic mass. There are several hypodense liver lesions consistent with cysts, the largest of which measures 4 cm. The gallbladder has been removed. There is a normal appendix.. There are multiple normal-sized lymph nodes in the pelvis and inguinal regions. There is increased number of lymph nodes in the mesentery and right lower quadrant. There is at least one enlarged lymph node in the right lower quadrant measuring as much as 21 x 11 mm.. There is abnormal periportal adenopathy including a 23 x 15 mm node. There is no evidence of abdominal aortic aneurysm.. There is no significant ascites. There is no evidence of bowel obstruction. There is no significant abnormal bowel wall thickening. Diverticulosis is especially severe in the sigmoid colon. There is no evidence of diverticulitis. Umbilical hernia contains only fat. CT abdomen and pelvis impression: 1. Abnormal periportal adenopathy. Increased number of normal sized mesenteric lymph nodes with some enlarged right lower quadrant mesenteric lymph nodes, nonspecific. Consider CT PET study given the patient's history. 2. Isodense left renal lesion is probably a hemorrhagic cyst but a renal ultrasound is recommended for further clarification. 3. Additional details are above. Electronically signed by: Kiel Farrell M.D. Narrative 10/11/2024 1:[address] chest abdomen and pelvis with contrast HISTORY: Lymphocytosis. Possible lymphoma.. TECHNIQUE: CT chest, abdomen, and pelvis was done with contrast 93mL Optiray 350 intravenously. FINDINGS: CT CHEST: No prior studies for correlation. Although not performed according to pulmonary embolus protocol, there are no definite central pulmonary emboli appreciated. There is no definite evidence of aortic aneurysm or dissection. There are small mediastinal and hilar lymph nodes. A few of the mediastinal lymph nodes are upper limit of normal but there is no definite abnormal adenopathy seen. There are small axillary nodes. No definite abnormal adenopathy in the chest.. The size of the heart is normal. There is no acute fracture or acute bone destruction. There is no pneumothorax. There is no pleural effusion. There is old granulomatous disease. There are several scattered sub-4 mm lung nodules, nonspecific. There are mild parenchymal opacities in the right middle lobe and lingula likely inflammatory/infectious and possibly chronic given some associated bronchiectasis.. Post procedure changes right breast. The thyroid is enlarged and heterogeneous and contains calcified and noncalcified nodules which could be evaluated with ultrasound if clinically indicated. Procedure Note Kiel Farrell MD - 10/11/2024 CT chest abdomen and pelvis with contrast HISTORY: Lymphocytosis. Possible lymphoma.. TECHNIQUE: CT chest, abdomen, and pelvis was done with contrast 93mL Optiray 350 intravenously. FINDINGS: CT CHEST: No prior studies for correlation. Although not performed according to pulmonary embolus protocol, there are no definite central pulmonary emboli appreciated. There is no definite evidence of aortic aneurysm or dissection. There are small mediastinal and hilar lymph nodes. A few of the mediastinal lymph nodes are upper limit of normal but there is no definite abnormal adenopathy seen. There are small axillary nodes. No definite abnormal adenopathy in the chest.. The size of the heart is normal. There is no acute fracture or acute bone destruction. There is no pneumothorax. There is no pleural effusion. There is old granulomatous disease. There are several scattered sub-4 mm lung nodules, nonspecific. There are mild parenchymal opacities in the right middle lobe and lingula likely inflammatory/infectious and possibly chronic given some associated bronchiectasis.. Post procedure changes right breast. The thyroid is enlarged and heterogeneous and contains calcified and noncalcified nodules which could be evaluated with ultrasound if clinically indicated. IMPRESSION: CT chest impression: 1. No definite adenopathy in the chest. 2. Small scattered lung nodules, nonspecific. 3. Enlarged heterogeneous thyroid gland which contains several nodules. 4. Additional details above.. CT abdomen and pelvis: There are no prior studies for correlation. Possibly a tiny hiatal hernia.. There is no acute fracture or acute bone destruction. The size of the spleen is normal. There is a 1 cm slightly hypodense renal lesion on the left which could be a hemorrhagic cyst. Renal ultrasound recommended for further clarification.. The left adrenal gland appears normal. A subcentimeter hypodense lesion of the lower most right kidney is probably a cyst but too small to characterize with certainty.. The right adrenal gland appears normal. There is no evidence of pancreatitis or significant pancreatic mass. There are several hypodense liver lesions consistent with cysts, the largest of which measures 4 cm. The gallbladder has been removed. There is a normal appendix.. There are multiple normal-sized lymph nodes in the pelvis and inguinal regions. There is increased number of lymph nodes in the mesentery and right lower quadrant. There is at least one enlarged lymph node in the right lower quadrant measuring as much as 21 x 11 mm.. There is abnormal periportal adenopathy including a 23 x 15 mm node. There is no evidence of abdominal aortic aneurysm.. There is no significant ascites. There is no evidence of bowel obstruction. There is no significant abnormal bowel wall thickening. Diverticulosis is especially severe in the sigmoid colon. There is no evidence of diverticulitis. Umbilical hernia contains only fat. CT abdomen and pelvis impression: 1. Abnormal periportal adenopathy. Increased number of normal sized mesenteric lymph nodes with some enlarged right lower quadrant mesenteric lymph nodes, nonspecific. Consider CT PET study given the patient's history. 2. Isodense left renal lesion is probably a hemorrhagic cyst but a renal ultrasound is recommended for further clarification. 3. Additional details are above. Electronically signed by: Kiel Farrell M.D. Maisha Mabry MD IMG CT PROCEDURES Final Result * Screening Mammogram Bilateral W Kyle (10/11/2024 11:01 AM CAR SPOTTER) Anatomical Region Laterality Modality Breast Bilateral Mammography Narrative 10/11/2024 5:16 PM CAR SPOTTER Examination: Screening Mammogram Bilateral W Kyle: 10/11/24 Clinical: Screening mammogram, encounter for. Prior Study Comparisons: Comparison was made to the prior available relevant studies at the time of interpretation. Findings: Screening Mammogram Bilateral W Kyle Bilateral No significant masses, malignant type calcifications, skin thickening, nipple retraction, or significant lymphadenopathy is noted in either breast. Computer Aided Detection was utilized for the interpretation of this study. The breasts are heterogeneously dense, which may obscure small masses. The patient will be notified of results by letter. Impression: BI-RADS ATLAS category (overall): 2 - Benign There is no mammographic evidence of malignancy. Routine Screening Mammogram in 1 Yr is recommended for bilateral Overall Assessment: 2 - Benign Self Screening Mammogram IMG MAMMO PROCEDURES Fi nal Result from Last 3 Months Insurance [employer] MEDICARE [facility] MEDICARE [facility] MEDICARE Advance Directives For more information, please contact: [phone] * Full Code (Latest Code Status on File) Date Activated Date Inactivated Comments 05/21/2020 2:31 PM 05/22/2020 4:20 PM Care Teams Account Development Specialist Relationship Specialty Start Date End Date Bianca Boothe MD [address] [place] [address] PCP - General 06/26/14 Vincent Watts MD [address] [place] [address] Consulting Physician Radiation Oncology 11/22/18 Rose Marie Goyal MD [address] [id number] Consulting Physician General Surgery 12/04/18 Huan Ureña MD [address] [id number] Consulting Physician General Surgery 05/21/20 Cara Silva NP [address] [address] Nurse Practitioner Surgery 07/19/21 Maisha Mabry MD [address] [place], [place] [id number] Medical Oncologist/Hematologis t Hematology and Oncology 08/09/24
--- OUTSIDE RECORDS SUMMARY | 2025-01-06 10:36 | XMS_ITS ---
Author Organization [facility] D Address [address] [place] [address] Care Team Providers Care Matrix Worker Name Role Phone Bianca Boothe MD Primary Care Provider Vincent Watts MD Unavailable Rose Marie Goyal MD Unavailable [phone] Huan Ureña MD Unavailable [phone] Cara Silva NP Unavailable Maisha Mabry MD Unavailable [phone] Active Problems Problem Noted Date Diagnosed Date Coronary artery disease invo lving mechoopda coronary artery of [place] heart without angina pectoris 07/16/2021 Assessment & [...] (05/13/2020): Added automatically from request for surgery [id number] History of right breast cancer 11/22/2018 Cancer Staging:Pathologic stage from 12/31/2018:Stage 0(pTis (DCIS), cN0, cM0, ER+, MD+, HER2: Not Assessed) - Signed by Cara [...] 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 Past Treatment and Therapy Plans No past plan information found. Radiation Treatments * Course C1_3D R BREAST 01/31/2019 - 02/27/2019 Treatment Period Energy Fraction Dose Fractions Total Dose Plans Planned R BREAST_Bst 02/22/2019 - 02/27/2019 250 4 / 1,000 R BREAST_FiF 01/31/2019 - 02/21/2019 266 16 / 4,256 Reference Points Delivered dvp Breast Boost 02/22/2019 - 02/27/2019 1,000 DVP R BREAST 01/31/2019 - 02/21/2019 4,256 Resolved Problems Problem Noted Date Diagnosed Date [...]
--- OUTSIDE RECORDS SUMMARY | 2025-01-06 10:36 | XMS_ITS | Clinical Summary ---
Author Organization [facility] Address [address] [place] [address] Care Team Providers Care Yeast Distiller Name Role Phone Bianca Boothe MD Primary Care Provider [phone] Vincent Watts MD Unavailable [phone] Rose Marie Goyal MD Unavailable Huan Ureña MD Unavailable [phone] Cara Silva NP Unavailable Maisha Mabry MD Unavailable [phone] Allergies Active Allergy Reactions Criticality Noted Date [...] Diagnosed Date Coronary artery disease invo lving [place] coronary artery of [place] heart without angina pectoris 07/16/2021 Assessment & [...] (05/13/2020): Added automatically from request for surgery [id number] History of right breast cancer 11/22/2018 Cancer Staging:Pathologic stage from 12/31/2018:Stage 0(pTis (DCIS), cN0, cM0, ER+, WV+, HER2: Not Assessed) - Signed by Cara [...] change in her excellent medical regimen today. Encounters Date Type Department Care Team Description 12/17/2024 Documentation [facility] [place] [address] Lynette Rivera RN 11/25/2024 10:34 AM CATALYST CONCENTRATION OPERATOR - 11/25/2024 11:59 PM CATALYST CONCENTRATION OPERATOR Hospital Encounter [facility] [address] [place] [phone] Multiple thyroid nodules Discharge Disposition: Discharge to home or self care 11/14/2024 Orders Only [facility] [address] [place] [phone] Maisha Mabry MD Multiple thyroid nodules (Primary Dx) 11/13/2024 9:34 AM CATALYST CONCENTRATION OPERATOR - 11/13/2024 11:59 PM CATALYST CONCENTRATION OPERATOR Hospital Encounter [facility] [address] [place] [phone] Thyroid nodule Discharge Disposition: Discharge to home or self care 11/06/2024 8:45 AM CATALYST CONCENTRATION OPERATOR Office Visit [facility] [address] [place] [phone] Maisha Mabry MD CLL (chronic lymphocytic leukemia) (HCC) (Primary Dx); Thyroid nodule 11/06/2024 8:30 AM CATALYST CONCENTRATION OPERATOR Lab [facility] [address] [place] [phone] CLL (chronic lymphocytic leukemia) (HCC) 11/06/2024 Documentation [facility] [address] [place] [phone] Lynette Rivera RN 11/04/2024 8:32 AM CATALYST CONCENTRATION OPERATOR - 11/04/2024 11:59 PM CATALYST CONCENTRATION OPERATOR Hospital Encounter [facility] [address] [place] [phone] Leonardo Anderson Pet Small lymphocytic lymphoma (HCC) Discharge Disposition: Discharge to home or self care 10/17/2024 Orders Only [facility] [address] [place] [phone] Maisha Mabry MD Small lymphocytic lymphoma (HCC) (Primary Dx) 10/11/2024 12:26 PM CATALYST CONCENTRATION OPERATOR - 10/11/2024 11:59 PM CATALYST CONCENTRATION OPERATOR Hospital Encounter [facility] [address] [place] [address] Lymphocytosis Discharge Disposition: Discharge to home or self care 10/11/2024 10:41 AM CATALYST CONCENTRATION OPERATOR - 10/11/2024 11:59 PM CATALYST CONCENTRATION OPERATOR Hospital Encounter [facility] [address] [facility] [address] [place] [address] Screening mammogram, encounter for Discharge Disposition: Discharge to home or self care from Last 3 Months Surgical History Surgery Date Site/Laterality Comments TONSILLECTOMY Tonsillectomy FOOT SURGERY Bilateral Foot surgery CATARACT EXTRACTION, BILATERAL ACHILLES TENDON SURGERY BREAST BIOPSY 11/14/2018 Right Stereotactic Biopsy CYST REMOVAL from spine BREAST LUMPECTOMY 12/20/2018 Right Medical History Medical History Date Comments Hypertension Hypertension Gastroesophageal reflux disease Acid reflux Cancer (HCC) skin CA History of radiation therapy Family History Medical History Relation Name Comments Lung cancer Daughter Atrial fibrillation Father Atrial f ibrillation; Coronary artery disease Father Lydia nary artery disease; Breast cancer Father's Sister Lymphoma Mother Breast cancer Sister Relation Name Status Comments Daughter Father Father's Sister Mother Sister Social History Tobacco Use Types Packs/Day Years Used Date Smoking Tobacco: Never Smokeless Tobacco: Never Tobacco Cessation:Counseling Given: Not Answered Alcohol Use Standard Drinks/Week Comments No 0 (1 standard drink = 0.6 oz pur e alcohol) Comments No Sex and Gender Information Value Date Recorded Sex Assigned at Not on file Legal Sex Female 11:41 PM CATALYST CONCENTRATION OPERATOR Gender Identity Not on file Sexual Orientation Not on file Obstetrics History Last Filed Vital Signs Vital Sign Reading Time Taken Comments Blood Pressure 132/70 11/06/2024 8:37 AM CATALYST CONCENTRATION OPERATOR Pulse 71 11/06/2024 8:37 AM CATALYST CONCENTRATION OPERATOR Temperature 36.1 C (96.9 F) 11/06/2024 8:37 AM CATALYST CONCENTRATION OPERATOR Respiratory Rate 18 11/06/2024 8:37 AM CATALYST CONCENTRATION OPERATOR Oxygen Saturation 100% 11/06/2024 8:37 AM CATALYST CONCENTRATION OPERATOR Inhaled Oxygen Concentration - - Weight 86.1 kg (189 lb 12.8 oz) 11/06/2024 8:37 AM CATALYST CONCENTRATION OPERATOR Height 172.7 cm (5' 8 ) 10/03/2024 10:2 4 AM CATALYST CONCENTRATION OPERATOR Body Mass Index 28.86 10/03/2024 10:24 AM CATALYST CONCENTRATION OPERATOR Plan of Treatment Health Maintenance Due Date Last Done Comments Depression Screening 1945 Hepatitis B Screening 1962 Zoster Vaccine (1 of 2) 1963 Well Visit 65+ 2009 Pneumococcal vaccine 65+ (2 of 2 - PPSV23) 11/17/2015 09/22/2015 Osteoporosis Screening-Bone Density Scan 01/17/2016 01/16/2014, 01/16/2014 Fall Risk Assessment 05/21/2021 05/21/2020 Influenza Vaccine (#1) 2024 3, 08/15/2019, 08/27/2018, Additional history exists DTaP/Tdap/Td Vaccine (2 - Td or Tdap) 12/08/2028 12/08/2018 Procedures Procedure Name Priority Date/Time Associated Diagnosis Comments MISC PATH REFER Routine 11/28/2024 12:18 PM CATALYST CONCENTRATION OPERATOR US GUIDED THYROID FINE NEEDLE ASPIRATION 1ST LESION Schedule Routine, Read Routine (OP Routine) 11/25/2024 1:07 PM CATALYST CONCENTRATION OPERATOR Multiple thyroid nodules CYTOLOGY Routine 11/25/2024 12:59 PM CATALYST CONCENTRATION OPERATOR Multiple thyroid nodules US THYROID Schedule Routine, Read Routine (OP Routine) 11/13/2024 10:25 AM CATALYST CONCENTRATION OPERATOR Thyroid nodule FLOW LEUKEMIA/LYMPHOMA Routine 8:30 AM CATALYST CONCENTRATION OPERATOR CLL (chronic lymphocytic leukemia) (HCC) DIFFERENTIAL AUTO Routine 11/06/2024 8:3 0 AM CATALYST CONCENTRATION OPERATOR CBC WITH AUTO DIFFERENTIAL Routine 11/06/2024 8:30 AM CATALYST CONCENTRATION OPERATOR IGVH MUTATION ANALYSIS BY PCR-GENPATH Routine 11/06/2024 8:30 AM CATALYST CONCENTRATION OPERATOR CLL (chronic lymphocytic leukemia) (HCC) CLL FISH CHRONIC LYMPHOCYTICLEUKEMIA Routine 11/06/2024 8:30 AM CATALYST CONCENTRATION OPERATOR CLL (chronic lymphocytic leukemia) (HCC) SURGICAL PATHOLOGY Routine 11/06/2024 8: 23 AM CATALYST CONCENTRATION OPERATOR PET/CT FDG SKULL TO THIGH Schedule Routine, Read Routine (OP Routine) 11/04/2024 10:17 AM CATALYST CONCENTRATION OPERATOR Small lymphocytic lymphoma (HCC) POCT GLUCOSE DEVICE Routine 11/04/2024 8 :49 AM CATALYST CONCENTRATION OPERATOR CT CHEST ABDOMEN PELVIS W CONTRAST Schedule Routine, Read Routine (OP Routine) 10/11/2024 1:45 PM CATALYST CONCENTRATION OPERATOR Lymphocytosis SCREENING MAMMOGRAM BILATERAL W KYLE Schedule Routine, Read Routine (OP Routine) 10/11/2024 11:01 AM CATALYST CONCENTRATION OPERATOR Screening mammogram, encounter for from Last 3 Months Results [facility] (11/28/2024 12:18 PM CATALYST CONCENTRATION OPERATOR) Desired Testing Afirma Performing Lab Veracyte [facility] Specimen Collected Date 11/25/2024 [facility] Path Result See scanned report [facility] Tissue 11/28/2024 12:1 8 PM CATALYST CONCENTRATION OPERATOR 11/28/2024 12:20 PM CATALYST CONCENTRATION OPERATOR us Maisha Mabry MD LAB BLOOD ORDERABLES Fin al Result [facility] [address] Department [place] [address] * US Guided Thyroid Fine Needle Aspiration 1st Lesion (11/25/2024 1:07 PM CATALYST CONCENTRATION OPERATOR) Anatomical Region Laterality Modality Thyroid N/A Ultrasound 11/25/2024 1:52 PM CATALYST CONCENTRATION OPERATOR Impressions 11/25/2024 1:52 PM CATALYST CONCENTRATION OPERATOR 1. Successful thyroid biopsy of the 1.2cm nodule in the isthmus 2. Successful thyroid biopsy of the 1.0cm nodule in the right mid thyroid Electronically signed by: Kait Quiñones PA-C Narrative 11/25/2024 1:52 PM CATALYST CONCENTRATION OPERATOR EXAMINATION: ULTRASOUND-GUIDED THYROID FINE NEEDLE ASPIRATION HISTORY: [...] fine needle aspirates were handed to the culture media laboratory assistant present during the procedure. Please refer to [...] fine needle aspirates were handed to the culture media laboratory assistant present during the procedure. Please refer to [...] thyroid Electronically signed by: Kait Quiñones PA-C Maisha Mabry MD [facility] [place] US PROCEDURES Final Result * Cytology (11/25/2024 12:59 PM CATALYST CONCENTRATION OPERATOR) Fluid (Thyroid Gland (Cytology)) 11/25/2024 1:00 PM CATALYST CONCENTRATION OPERATOR Narrative PATHOLOGY [facility] - 11/27/2024 2:38 PM CATALYST CONCENTRATION OPERATOR [address] [address] Tele: Lety Garcia MD - Solution Strategist Note to Patients: This report may contain [...] CYTOLOGY REPORT Patient Name: FRANCES WILDER Address: [place] [address] Gender: F : 1945 (Age: 79) Service: Location: Hospital #: [id number] Patient Type [facility] ANCILLARY Taken: 11/25/2024 Reported: 11/27/2024 Physician(s): PABLITO Nick M.D. Rajneesh S. Jain, M.D. 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 ADDENDA: Addendum Comment This field contains a PDF document (see scanned image which follows report). If your system does not support PDF viewing, please refer to Modabound or the original report to view the PDF document. Farhana Bass M.D. Date Ordered: 12/16/2024 Status: Signed Out Date Complete: 12/16/2024 By: Farhana Bass M.D. Date Reported: 12/17/2024 SPECIMEN TYPE: A: ISTHMUS B: RIGHT THYROID MID CLINICAL DIAGNOSIS AND HISTORY: Multiple thyroid nodules GROSS DESCRIPTION: A. Received are four air-dried and four alcohol-fixed glass slides, each labeled Herbert Wilder/44/A. Four slides are submitted for Diff-Quik stain; four slides are submitted for Pap stain. Also received in CytoRich Red in a container labeled Frances Wilder and Isthmus are 10 ml of clear red fluid without sediment. Submitted for two Pap-stained cytospins and cell block. B. Received are four air-dried and fou alcohol-fixed glass slides, each labeled Herbert Wilder/44/B. Four slides are submitted for Diff-Quik stain; four slides are submitted for Pap stain. Also received in CytoRich Red in a container labeled Frances Wilder and Right thyroid mid are 10 ml [...] the cytospin preparations. Clerical Data Follows A; 77692, 20262` B; 98518, 15733` REPORT IMAGES AND/OR SCANNED DOCUMENTS ONLY VIEWABLE IN PDF FORMAT The immunohistochemical test(s) cited in this report, if any, was developed and its performance characteristics determined by [facility]. It has not been cleared or approved by the U.S. Food and Drug Administration. The FDA has determined that such clearance or approval is not necessary. This test is used for clinical purposes. It should not be regarded as investigational or for research. [facility] is certified under the Clinical Laboratory Improvement Amendments of 1988 (CLIA) as qualified to perform high complexity testing. Immunostains were performed on formalin-fixed paraffin embedded tissue using a polymer diaminobenzidine chromogen detection system. Antibodies used may include clone 1D5 (mouse monoclonal, estrogen receptor), clone [id number] (mouse monoclonal progesterone receptor), MIB-1 (mouse monoclonal, Ki- 67), and CD117 (rabbit polyclonal, c-kit). In the event that immunohistochemistry or special stains have been performed, attending physician has confirmed appropriateness of controls. Frozen section, operating room consultation, gross examination and dissection, and case sign out may have been performed in part or completely in the following laboratories: [facility], [facility] [facility], [place] [address] [facility], [place] [address]. Maisha Mabry MD LAB CYTOLOGY ORDERABLES Final Result PATHOLOGY [facility] Laboratory Receiving [address] [place] [address] * US Thyroid (11/13/2024 10:25 AM CATALYST CONCENTRATION OPERATOR) Anatomical Region Laterality Modality Head and Neck N/A Ultrasound 11/13/2024 11:1 9 AM CATALYST CONCENTRATION OPERATOR Impressions 11/13/2024 11:19 AM CATALYST CONCENTRATION OPERATOR 1. Indeterminate TR 5 nodule in the [...] Kiel Farrell M.D. Narrative 11/13/2024 11:19 AM CATALYST CONCENTRATION OPERATOR Thyroid sonogram HISTORY:Thyroid nodule on PET study. [...] * Flow Leukemia/Lymphoma Blood (11/06/2024 8:30 AM CATALYST CONCENTRATION OPERATOR) [facility] Goel Stain Test Completed Comment:Testing performed by : [facility], [address] [place]., [address] Leukemia/Lymp andie Result See separate Surgical Pathology report. [facility] Comment:Testing performed by : [facility], [address] [facility], [place]., [address] Blood 11/06/2024 8:30 AM CATALYST CONCENTRATION OPERATOR 11/06/2024 11:45 AM CATALYST CONCENTRATION OPERATOR Maisha Mabry MD LAB PATHOLOGY ORDERABLES Final Result [facility] [address] Department of [employer] [place], [place] [id number] * CLL FISH chronic lymphocyticleukemia (11/06/2024 8:30 AM CATALYST CONCENTRATION OPERATOR) [facility] CLL FISH Chronic LymphocyticLeukemia Panel-GenPath See scanned report Blood 11/06/2024 8:30 AM CATALYST CONCENTRATION OPERATOR 11/06/2024 9:00 AM CATALYST CONCENTRATION OPERATOR Maisha Mabry MD LAB BLOOD ORDERABLES Fin al Result Performing Organization Address City/[facility]/ZIP Co de Phone Number [facility] [address] [place] [address] * Differential, auto (11/06/2024 8:30 AM CATALYST CONCENTRATION OPERATOR) [facility] Neutrophil abs 3.9 1.5 - 6.5 K/cumm Imm gran abs 0.0 0.0 - 0.1 K/cumm [facility] Lymphocyte abs 3.3 0.8 - 3.3 K/cumm [facility] Monocyte abs 0.7 0.2 - 0.8 K/cumm [facility] Eosinophil abs 0.2 0.0 - 0.5 K/cumm [facility] Basophil abs 0.1 0.0 - 0.1 K/cumm [facility] Neutrophil pct 47.9 % [facility] Comment: Interpretive Data Percent cell count reference ranges are not reported, since discordance with absolute values may lead to misinterpretation of CBC data. Current Interpretive Data was last revised on 2018. Imm gran pct 0.2 % [facility] Comment: Interpretive Data Percent cell count reference ranges are not reported, since discordance with absolute values may lead to misinterpretation of CBC data. Current Interpretive Data was last revised on 2018. Lymphocyte pct 40.0 % [facility] Comment: Interpretive Data Percent cell count reference ranges are not reported, since discordance with absolute values may lead to misinterpretation of CBC data. Current Interpretive Data was last revised on 2018. Monocyte pct 8.6 % [facility] Comment: Interpretive Data Percent cell count reference ranges are not reported, since discordance with absolute values may lead to misinterpretation of CBC data. Current Interpretive Data was last revised on 2018. Eosinophil pct 2.3 % [facility] Comment: Interpretive Data Percent cell count reference ranges are not reported, since discordance with absolute values may lead to misinterpretation of CBC data. Current Interpretive Data was last revised on 2018. Basophil pct 1.0 % [facility] Comment: Interpretive Data Percent cell count reference ranges are not reported, since discordance with absolute values may lead to misinterpretation of CBC data. Current Interpretive Data was last revised on 2018. Blood 11/06/2024 8:30 AM CATALYST CONCENTRATION OPERATOR 11/06/2024 8:30 AM CATALYST CONCENTRATION OPERATOR Maisha Mabry MD LAB BLOOD ORDERABLES Fin al Result [facility] [address] Department of Laboratories [place], [place] [id number] * IgVH Mutation Analysis by PCR-GenPath (11/06/2024 8:30 AM CATALYST CONCENTRATION OPERATOR) IgVH Mutation Analysis by PCR-GenPath See scanned report Blood 11/06/2024 8:30 AM CATALYST CONCENTRATION OPERATOR 11/06/2024 9:00 AM CATALYST CONCENTRATION OPERATOR Maisha Mabry MD LAB BLOOD ORDERABLES Fin al Result Performing Organization Address City/[facility]/ZIP Co de Phone Number [facility] [address] [place] [address] * (ABNORMAL) CBC with auto differential (11/06/2024 8:30 AM CATALYST CONCENTRATION OPERATOR) WBC 8.2 3.8 - 9.9 K/cumm Hgb 14.5 11.9 - 15.5 g/dL [facility] Hct 45.5 35.6 - 45.5 % [facility] Plt 167 150 - 400 K/cumm [facility] MPV 11.3 9.1 - 12.3 fL [facility] RBC 5.21(H) 3.90 - 5.20 M/cumm [facility] MCV 87.3 81.3 - 96.4 fL [facility] MCH 27.8 27.1 - 33.3 pg [facility] MCHC 31.9(L) 32.3 - 35.7 g/dL [facility] RDW CV 13.7 11.1 - 14.9 % [facility] RDW SD 43.8 35.7 - 48.1 fL [facility] NRBC abs 0.00 0.00 - 0.01 K/cumm [facility] Blood 11/06/2024 8:30 AM CATALYST CONCENTRATION OPERATOR 11/06/2024 8:30 AM CATALYST CONCENTRATION OPERATOR Maisha Mabry MD LAB BLOOD ORDERABLES Fin al Result [facility] [address] [place] [address] * Surgical pathology (11/06/2024 8:23 AM CATALYST CONCENTRATION OPERATOR) Peripheral Blood For Pathologist Review 11/06/2024 8:23 AM CATALYST CONCENTRATION OPERATOR 11/06/2024 10:06 AM CATALYST CONCENTRATION OPERATOR Narrative 11/08/2024 4:03 PM CATALYST CONCENTRATION OPERATOR [address] [address] Tele: Lety Garcia MD - Solution Strategist FLOW CYTOMETRY REPORT Note to Patients: This [...] the details. Patient Name: FRANCES WILDER Address: [place] [address] Gender: F : 1945 (Age: 79) Service: Location: N : [id number] Hospital #: [id number] Patient Type: MBC INFUSION SERIES Taken: 11/06/2024 Received: 11/06/2024 Reported: 11/08/2024 Physician(s): Maisha Mabry M.D. DIAGNOSIS: Peripheral blood, flow cytometric immunophenotypic analysis: - CD5 negative CD10 negative monoclonal B-cell population identified, see comment - No abnormal T-cell population identified dms/11/08/2024 16:03 Examining Pathologist: Floyd Latif MD, PhD [...] CD123, HLA-DR, CD200, T-cell receptor gamma delta, [place], and Lambda. Clerical Data Follows [id number] REPORT IMAGES AND/OR SCANNED DOCUMENTS ONLY VIEWABLE IN PDF FORMAT The flow cytometry study included in this report is developed and its performance characteristics determined by [facility] Pathology Department and/or [facility]. It has not been cleared or approved by the U.S Food and Drug Administration (FDA) and FDA has determined that such clearance or approval is not necessary. This test is used for clinical purpose and it should not be regarded as investigational or for research. [facility]/or [facility] is certified under the Clinical Laboratory Amendment of 1988 (CLIA) as qualified to perform high complex testing Maisha Mabry MD LAB PATHOLOGY ORDERABLES Final Result * PET/CT FDG Skull to Thigh (11/04/2024 10:17 AM CATALYST CONCENTRATION OPERATOR) Anatomical Region Laterality Modality N/A Positron Emissio n Tomography (PET) 11/04/2024 11:5 5 AM CATALYST CONCENTRATION OPERATOR Impressions 11/04/2024 12:03 PM CATALYST CONCENTRATION OPERATOR 1. No FDG avid lymphadenopathy above or [...] by: DO Checo Lezama 11/04/2024 12:03 PM CATALYST CONCENTRATION OPERATOR EXAMINATION: TUMOR FDG-PET/CT IMAGING DATE OF STUDY: 11/04/2024 SCANNER: [facility] RADIOPHARMACEUTICAL: 18.0 mCi F-18 Fluorodeoxyglucose (FDG) [...] obtained. The study was interpreted on the [employer] workstation. The mean liver SUV (reported for type disk quality control supervisor purposes) is 3.8. The total scanned area [...] diverticulitis. Small fat-containing umbilical hernia. Procedure Note Vadim Hatfield DO - 11/04/2024 EXAMINATION: TUMOR FDG-PET/CT IMAGING DATE OF STUDY: 11/04/2024 SCANNER: [facility] RADIOPHARMACEUTICAL: 18.0 mCi F-18 Fluorodeoxyglucose (FDG) [...] obtained. The study was interpreted on the [employer] workstation. The mean liver SUV (reported for type disk quality control supervisor purposes) is 3.8. The total scanned area [...] Result * POCT glucose (11/04/2024 8:49 AM CATALYST CONCENTRATION OPERATOR) Glucose, POC 76 70 - 199 mg/dL Comment: For Glucose values <35 mg/dl when Hematocrit is >60 mg/dl,the test may not accurately detect significant hypoglycemia,and testing in the Laboratory should be considered if clinically indicated. Blood 11/04/2024 8:49 AM CATALYST CONCENTRATION OPERATOR 11/04/2024 8:49 AM CATALYST CONCENTRATION OPERATOR Maisha Mabry MD LAB POCT ORDERABLES - DE VICE Final Result [facility] [address] Department [place] [address] * CT chest abdomen pelvis with contrast (10/11/2024 1:45 PM CATALYST CONCENTRATION OPERATOR) Anatomical Region Laterality Modality Body N/A Computed Tomogra phy 10/11/2024 1:55 PM CATALYST CONCENTRATION OPERATOR Impressions 10/11/2024 1:55 PM CATALYST CONCENTRATION OPERATOR CT chest impression: 1. No definite adenopathy [...] Kiel Farrell M.D. Narrative 10/11/2024 1:55 PM CATALYST CONCENTRATION OPERATOR CT chest abdomen and pelvis with contrast [...] Mammogram Bilateral W Kyle (10/11/2024 11:01 AM CATALYST CONCENTRATION OPERATOR) Anatomical Region Laterality Modality Breast Bilateral Mammography Narrative 10/11/2024 5:16 PM CATALYST CONCENTRATION OPERATOR Examination: Screening Mammogram Bilateral W Kyle: 10/11/24 [...] for bilateral Overall Assessment: 2 - Benign us Self Screening Mammogram IMG MAMMO PROCEDURES Fi nal Result from Last 3 Months Insurance AET[employer] MEDICARE [facility] MEDIC[facility] Address: [facility] [id number] [place] [address] [employer] MEDICARE A[employer] MEDICARE Advance Directives For more information, please contact: [phone] * Full Code (Latest Code Status on File) Date Activated Date Inactivated Comments 05/21/2020 2:31 PM 05/22/2020 4:20 PM Care Teams Yeast Distiller Relationship Specialty Start Date End Date Bianca Boothe MD [address] [place] [address] PCP - General 06/26/14 Vincent Watts MD [address] DEPT [place] [address] Consulting Physician Radiation Oncology 11/22/18 Rose Marie Goyal MD [address] [facility] [address] [place] [address] Consulting Physician General Surgery 12/04/18 Huan Ureña MD [address] [facility] [address] [place] [address] Consulting Physician General Surgery 05/21/20 Cara Silva NP [address] [facility] [address] [place] [address] Nurse Practitioner Surgery 07/19/21 Maisha Mabry MD [address] [place] [address] Medical Oncologist/Hematologis t Hematology and Oncology 08/09/24
--- OUTSIDE RECORDS SUMMARY | 2025-01-06 10:37 | XMS_ITS | Continuity of Care Document ---
Author Organization [facility] Address [address] [place] [address] Phone Care Team Providers Care Crankshaft Balancer Name Role Phone Alonso Beckett MD, FACS Unavailable Unavailab le Allergies, Adverse Reactions, Alerts Substance Reaction Status Criticality No Known Allergies Active No Inform ation Medications Medication Instructions Dosage Effective Dates (start - stop) Status Comments Myrbetriq 25 mg tablet,extended release take 1 tablet by oral route every day swallowing whole with water. Do not crush, chew and/or divide. 25 MG - Active fluocinonide 0.05 % topical solution apply by topical route 2 times every day to the affected area(s) 0.00 - Active omeprazole 20 mg tablet,delayed release take 1 table by oral route every 2 days - Active spironolactone 50 mg tablet take 1 tablet (50MG) by oral route every day 50 MG - Active amitriptyline 10 mg tablet take 1 tablet (10MG) by oral route every bedtime 10 MG - Active Aspirin Low Dose 81 mg tablet,delayed release take 1 tablet (81MG) by oral route every morning 81 MG - Active Centrum Silver tablet take 1 tablet by oral route every morning 1 tablet - Active Fish Oil 1,000 mg capsule take 2 tablets by oral route every day - Active Vitamin C 1,000 mg tablet take 1 by Oral route every morning 1 - Active Procedures Procedure Date After Cataract Laser Surgery Fundus Photography W/ Report Office/outpatient Visit, [facility] No Charge Refraction Post-op Follow-up Visit Remove Cataract, Insert Lens Astigmatism Correcting Toric IOL 2013 Remove Cataract, Insert Lens Limbal Relaxing Incision Office/outpatient Visit, [place] No Charge Refraction IOLMaster IOLMaster No Charge Orbscan Fundus Photography W/ Report Eye Exam, New Patient No Charge Refraction Fundus Photography W/ Report Advance Directives Directive Yes / No Effective Date File Name No Information Encounters Encounter Description Practice Location Reason(s) For Visit Diagnoses Date Provider Providers Copied on Encounter [facility], [address], [place], [place], [id number], tel:[phone] [facility] [place] No Information 2 Sophy Gupta. [address], [place], [place], [address], [place]. tel:[phone] Referring Provider: Elsy Stubbs OD, [address] [facility], [place], [address]. tel:[phone] Office/outpa tient Visit, [facility], [address], [place], [place], [id number], [place] tel:[phone] [facility] [place] [facility] [place] YAG Evaluation (chief complaint) Other secondary cataract, bilateralPres ence of intraocular lensRetinal hemorrhage, right eye 2 [place] Alonso. [address], [place], [place], [address], [place]. tel:[phone] Referring Provider: Elsy Stubbs OD, [address] [facility], [place], [address]. tel:[phone] [facility], [address], [place], [place], [address], [place] tel:[phone] [facility] [place] [facility] [place] No Information 2 [place] Alonso. [address] [place] [facility], [address], [place], [place], [address], [place]. tel:[phone] [facility], [address] [place] [address], [place], [place], [address], [place] tel:[phone] [facility] [place] [facility] [place] F/u exam, postop (chief complaint) FOLLOW-UP SURGERY NOS 4 Zelda Snowden. [address] [facility], [address], [place], [place], [address], [place]. tel:[phone] Referring Provider: Flako Welch, [address] [place] [address], [place], [address]. tel:[phone] [facility], [address] [place] [address] [address], [place], [place], [id number], [place] tel:[phone] [facility] [place] No Information 4 Sophy Alonso. [address] [place] [address] [facility], [address], [place], [place], [address], [place]. tel:[phone] Referring Provider: Flako Welch, [address] [facility], [place], [address]. tel:[phone] [facility], [address] [place] [address] [address], [place], [place], [address], [place] tel:[phone] [facility] [place] No Information 4 Sophy Alonso. [address] [place], [place] [address] [facility], [address], [place], [place], [address], [place]. tel:[phone] Referring Provider: Flako Welch, [address] [facility], [place], [address]. tel:[phone] Office/outpa tient Visit, [facility], [address] [place] [address] [address], [place], [place], [address], tel:[phone] [facility] [place] [facility] [place] eyes doing well, without complaint. (chief complaint) CORTICAL SENILE CATARACTPROGR ESSIVE HIGH MYOPIA Mykel-0 9-201 4 Sophy Gupta. [address] [place] [facility], [address], [place], [place], [address], . tel:[phone] Referring Provider: Flako Benites OD A, [address] [facility], [place], [address]. 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 [address] [place] [facility], [address], [place], [place], [address], [place]. tel:[phone] Referring Provider: Flako Benites OD A, [address] [facility], [place], [address]. tel:[phone] Family History Family Member Type Diagnosis Age At Onset Father Problem (finding) diabetes melli tus in first degree relative Payers Payer name Insurance type Covered green party ID Authoriza tial(s) [facility] Mdcr Adv CI [id number] Social History Type Description Quantity Date Captured Comments Sex Female Smoking Status No Information Chief Complaint And Reason For Visit No Information Reason For Referral Reason For Referral No Information Plan Of Treatment Date Type Action Status Patient Education Learning About YAG Lase r Capsulotomy completed History Of Present Illness Encounter Date Complaint History Of Prese nt Illness YAG Evaluation The 76 year old female presents for evaluation of YAG Evaluation in the right eye and left eye. Hx of PCIOL OU. Pt states that she has vision for intermediate and glasses for reading. Pt states that she is having difficulty seeing with both pair of glasses. Pt states that she has noticed that the vision has decreased over the last few months. Pt states that she just had an eye exam with her Assembler Body last week. Pt is not currently using any eye gtts. F/u exam, postop The 68 year old female presents for Work in Emergency for pain and tearing OS. Patient had Phaco with IOL OS this AM and tears are pouring . It feels scratchy also. Patient did not have problems like this with her first Cataract surgery OD (05/01/14). Pt has her 1 day post op scheduled with her local exchange clerk in [place] tomorrow. Functional Status Date Functional Assessmen t No Information Instructions Date Instruction Additional Infor mora Impression/Plan - Burped WoundInsert ed 1 drop of Prolensa and BCL (AVOasys 8.4/-0.50)Given note for Dr Benites, to be seen at Dr Benites's office tomorrow. Educational materials provided:Post op instructions. Related to FOLLOW-UP SURGERY NOS - sched CE OD 1st Related to PRO GRESSIVE HIGH MYOPIA CORTICAL SENILE KELLY RACT OU Vision: vision affected. PROGRESSIVE HIGH MYOPIA - Discussed cataract status with pt and progression without treatment. Pt understands all risks, alts, and benefits of cataract surgery and elects to schedule. IOL options discussed with pt. Standard monofocal discussed and specs will be required for near activities. Discussed TORIC IOL options. Explained the accuracy and effectiveness of any lens implant cannot be guaranteed and the need for glasses for some visual activities after cataract surgery is likely for most patients even when considering a lifestyle IOL. Discussed availability with her amount of correction.The patient understands that the Lifestyle IOL's are an out of pocket expense not covered by insurance. Pt aware Farhana may call her to discuss IOL options. 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 Anisometropia understood. Educational materials provided:Cataract extraction/lens. Related to PROGRESSIVE HIGH MYOPIA - 3 months cat check/eval repeat BAT Related to PROGRESSIVE HIGH MYOPIA CORTICAL SENILE KELLY RACT OU Vision: vision affected. PROGRESSIVE HIGH MYOPIA OU Vision: vision affected. - Discussed cataracts with pt, and treatment options pt also understands at this time vision does not qualify to have CE with insurance coverage. Information given to pt for review, and instructed to return sooner if vision worsens Educational materials provided:about today's exam.Sched next visit at the [facility] office. IOL master needed on return. repeat BAT-medium, not low. Pt understands anisometropia after CE. and will need to proceed with fellow eye sooner.IOL options discussed with pt. information given to review. crystalens and MF IOL discussed and explained options may be limited due to her correction and availability,ut of pocket expense also explained. letter dictated to Dr. Benites Related to PROGRESSIVE HIGH MYOPIA Assessments Type Assessment Date No Information Patient Care Teams Name Effective Dates (start - stop) Status Members No Information
--- OUTSIDE RECORDS SUMMARY | 2025-01-06 10:37 | XMS_ITS | Clinical Summary ---
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 Gender Identity Not on file Sexual Orientation Not on file Plan of Treatment Health Maintenance Due Date Last Done Comments DTaP, Tdap and Td Vaccines ( 1 - Tdap) 1963 Zoster Vaccines (1 of 2) 1994 Annual Medicare Wellness Visit 2009 Dexa Scan (General) 2009 Pneumococcal Vaccine: 65+ Ye ars (2 of 2 - PPSV23 or PCV20) 09/22/2016 09/22/2015 RSV Immunization or 60+ Years (1 - 1-dose 75+ series) 2019 COVID-19 Vaccine ( - 2023-2 5 season) 2024 Influenza Adult (#1) 2024 08/09/2013 Meningococcal B Vaccine Aged Out No l onger eligible based on patient's age to complete this topic Meningococcal Vaccine Aged Out No ayan corry eligible based on patient's age to complete this topic RSV Immunizations Under 20 Months Aged Out No longer eligible based on patient's age to complete this topic Insurance MED REPLACE [facility] MEDICARE Care Teams Earth Science Laboratory Technician Relationship Specialty Start Date End Date Bianca Boothe MD PCP - General INTERNAL MEDICINE 02/13/20
--- OUTSIDE RECORDS SUMMARY | 2025-01-06 10:37 | XMS_ITS | Clinical Summary ---
Author Organization [facility] Address [address] [place] [address] Care Team Providers Care Mill Oiler Name Role Phone Bianca Boothe MD Primary Care Provider + Allergies Active Allergy Reactions Criticality Noted Date Comments Adhesive Tape-Silicones Rash Low Medications spironolactone (ALDACTONE) 50 mg tablet 12/25/2013 Active cholecalciferol, vitamin D3, 1,000 unit Take by mouth. Active amitriptyline (ELAVIL) 10 mg tablet Take 10 mg by mouth daily at bedtime. Active MYRBETRIQ 25 mg Extended Release 24 hour tablet 08/16/2018 Acti ve betamethasone dipropionate (DIPROSONE) 0.05 % Cream 09/17/2018 Active omeprazole (PriLOSEC) 20 mg Capsule, Delayed Release(E.C.) Take 20 mg by mouth daily. Active aspirin (ECOTRIN EC) 81 mg Tablet, Delayed Release (E.C.) Take 81 mg by mouth. Active Active Problems Problem Noted Date Diagnosed Date Breast pain, right 05/18/2017 Family History Medical History Relation Name Comments Diabetes Father Heart Disease Mother Breast Cancer Sister Stroke Sister Colon Cancer Neg Hx Ovarian Cancer Neg Hx Relation Name Status Comments Father Mother Sister Alive Social History Tobacco Use Types Packs/Day Years Used Date Smoking Tobacco: Never Smokeless Tobacco: Never Tobacco Cessation:Counseling Given: Not Answered Alcohol Use Standard Drinks/Week Comments No 0 (1 standard drink = 0.6 oz pur e alcohol) Comments No Sex and Gender Information Value Date Recorded Sex Assigned at Not on file Legal Sex Female 6:22 PM CDT Gender Identity Not on file Sexual Orientation Not on file Last Filed Vital Signs Vital Sign Reading Time Taken Comments Blood Pressure 160/82 10/28/2022 10:12 AM ACUTE COORDINATOR Pulse 85 07/03/2018 11:31 AM CDT Temperature - - Respiratory Rate 16 07/03/2018 11:31 AM CDT Oxygen Saturation - - Inhaled Oxygen Concentration - - Weight 89.4 kg (197 lb) 10/28/2022 10:12 AM ACUTE COORDINATOR Height 167.6 cm (5' 6 ) 10/28/2022 10:12 AM ACUTE COORDINATOR Body Mass Index 31.8 10/28/2022 10:12 AM ACUTE COORDINATOR Plan of Treatment Health Maintenance Due Date Last Done Comments DTAP/TDAP/TD VACCINES (1 - Tdap) 1964 PNEUMOCOCCAL VACCINE 50+ YEARS (1 of 1 - PCV) 06/13/19 94 ZOSTER VACCINE (1 of 2) 1994 RSV VACCINE (60+ or ) (1 - 1-dose 75+ series) 2019 INFLUENZA VACCINE (#1) 2024 OSTEOPOROSIS SCREENING Completed 01/16/2014 Procedures Procedure Name Priority Date/Time Associated Diagnosis Comments XR DEXA BONE DENSITY AXIAL 1 OR MORE SITES Routine 01/16/2014 Symptomatic menopausal or female climacteric states from Last 3 Months or Most Recently Relevant to Health Maintenance Results * XR DEXA BONE DENSITY AXIAL 1 OR MORE SITES (01/16/2014) T-SCORE FEMUR (LEFT) 0.2 [facility] T-SCORE FEMUR (RIGHT) [facility] T-SCORE FEMUR >=-0.99 [facility] T-SCORE SPINE -0.4 >=-0.99 [facility] T-SCORE HIP (LEFT) -0.4 [facility] T-SCORE HIP (RIGHT) [facility] T-SCORE HIP >=-0.99 [facility] Anatomical Region Laterality Modality Other Neptali Guzman DO DIAGNOSTIC IMAGING ORDERABLES E dited Result - Final from Last 3 Months or Most Recently Relevant to Health Maintenance Insurance [employer] PPO MCR Care Teams Mill Oiler Relationship Specialty Start Date End Date Bianca Boothe MD [address] [place] [id number] PCP - General Internal Medicine 07/03/18
[2025-01-06 10:48] LABS: Alanine Aminotransferase 16 U/L (14-59); Albumin Level 4.3 g/dL (3.4-5.0); Alkaline Phosphatase 112 U/L (46-116); Anion Gap 5 mmol/L (4-12); Aspartate Amino Transferase 16 U/L (15-37); Bilirubin,Total 0.6 mg/dL (0.00-1.00); Blood Urea Nitrogen 20 mg/dL (7-18); Calcium 10.8 mg/dL (8.5-10.1); Carbon Dioxide 29 mmol/L (21-32); Chloride 108 mmol/L (98-108); Estimated Glomerular Filt Rate 48; Glucose 97 mg/dL (70-99); Osmolality Calculated 296 mOsm/kg (285-295); Potassium 5.5 mmol/L (3.5-5.1); Sodium 142 mmol/L (136-145); Total Protein 6.9 g/dL (6.4-8.2)
== END 2025-01-06 09:35 | disposition home or self-care (01) ==
LOC: CHSLAB 09:35
PROVIDERS: PCP Internal Medicine; Visit Provider Internal Medicine
DX: I10 Essential (primary) hypertension (principal); N39.0 Urinary tract infection, site not specified
CPT/HCPCS: 36415; 80053; 81003; 85025

== ENCOUNTER 2025-01-20 20:42 | Emergency (ER) | payer MEDICARE, SELFPAY ==
[2025-01-20 20:43] VITALS: BP 177/87; PULSE 73; RESP 18; TEMP 36.3; O2SAT 96
--- OUTSIDE RECORDS SUMMARY | 2025-01-20 20:45 | XMS_ITS | Clinical Summary ---
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 [place] [address] Lynette Rivera RN 11/25/2024 10:34 AM ADULT LIVE IN CAREGIVER - 11/25/2024 11:59 PM ADULT LIVE IN CAREGIVER Hospital Encounter [facility] - Imaging [address] [place] [phone] Multiple thyroid nodules Discharge Disposition: Discharge to home or self care 11/14/[address] [facility] [address] [place] [phone] Maisha Mabry MD Multiple thyroid nodules (Primary Dx) 11/13/2024 9:34 AM ADULT LIVE IN CAREGIVER - 11/13/2024 11:59 PM ADULT LIVE IN CAREGIVER Hospital Encounter [facility] [address] [place] [phone] Thyroid nodule Discharge Disposition: Discharge to home or self care 11/06/2024 8:45 AM ADULT LIVE IN CAREGIVER Office Visit [facility] [address] [place] [phone] Maisha Mabry MD CLL (chronic lymphocytic leukemia) (HCC) (Primary Dx); Thyroid nodule 11/06/2024 8:30 AM ADULT LIVE IN CAREGIVER Lab [facility] Center Lab [address] [place] [phone] CLL (chronic lymphocytic leukemia) (HCC) 11/06/[address] [facility] [address] [place] [phone] Lynette Rivera RN 11/04/2024 8:32 AM ADULT LIVE IN CAREGIVER - 11/04/2024 11:59 PM ADULT LIVE IN CAREGIVER Hospital Encounter [facility] [address] [place] [phone] [facility] Pet Small lymphocytic lymphoma (HCC) Discharge Disposition: [...] on file Legal Sex Female 11:41 PM ADULT LIVE IN CAREGIVER Gender Identity Not on file Sexual Orientation Not on file Obstetrics History Last Filed Vital Signs Vital Sign Reading Time Taken Comments Blood Pressure 132/70 11/06/2024 8:37 AM ADULT LIVE IN CAREGIVER Pulse 71 11/06/2024 8:37 AM ADULT LIVE IN CAREGIVER Temperature 36.1 C (96.9 F) 11/06/2024 8:37 AM ADULT LIVE IN CAREGIVER Respiratory Rate 18 11/06/2024 8:37 AM ADULT LIVE IN CAREGIVER Oxygen Saturation 100% 11/06/2024 8:37 AM ADULT LIVE IN CAREGIVER Inhaled Oxygen Concentration - - Weight 86.1 kg (189 lb 12.8 oz) 11/06/2024 8:37 AM ADULT LIVE IN CAREGIVER Height 172.7 cm (5' 8 ) 10/03/2024 10:2 4 AM ADULT LIVE IN CAREGIVER Body Mass Index 28.86 10/03/2024 10:24 AM ADULT LIVE IN CAREGIVER Plan of Treatment Health Maintenance Due Date [...] MISC PATH REFER Routine 11/28/2024 12:18 PM ADULT LIVE IN CAREGIVER US GUIDED THYROID FINE NEEDLE ASPIRATION 1ST LESION Schedule Routine, Read Routine (OP Routine) 11/25/2024 1:07 PM ADULT LIVE IN CAREGIVER Multiple thyroid nodules CYTOLOGY Routine 11/25/2024 12:59 PM ADULT LIVE IN CAREGIVER Multiple thyroid nodules US THYROID Schedule Routine, Read Routine (OP Routine) 11/13/2024 10:25 AM ADULT LIVE IN CAREGIVER Thyroid nodule FLOW LEUKEMIA/LYMPHOMA Routine 8:30 AM ADULT LIVE IN CAREGIVER CLL (chronic lymphocytic leukemia) (HCC) DIFFERENTIAL AUTO Routine 11/06/2024 8:3 0 AM ADULT LIVE IN CAREGIVER CBC WITH AUTO DIFFERENTIAL Routine 11/06/2024 8:30 AM ADULT LIVE IN CAREGIVER IGVH MUTATION ANALYSIS BY PCR-GENPATH Routine 11/06/2024 8:30 AM ADULT LIVE IN CAREGIVER CLL (chronic lymphocytic leukemia) (HCC) CLL FISH CHRONIC LYMPHOCYTICLEUKEMIA Routine 11/06/2024 8:30 AM ADULT LIVE IN CAREGIVER CLL (chronic lymphocytic leukemia) (HCC) SURGICAL PATHOLOGY Routine 11/06/2024 8: 23 AM ADULT LIVE IN CAREGIVER PET/CT FDG SKULL TO THIGH Schedule Routine, Read Routine (OP Routine) 11/04/2024 10:17 AM ADULT LIVE IN CAREGIVER Small lymphocytic lymphoma (HCC) POCT GLUCOSE DEVICE Routine 11/04/2024 8 :49 AM ADULT LIVE IN CAREGIVER from Last 3 Months Results * Misc Path Refer (11/28/2024 12:18 PM ADULT LIVE IN CAREGIVER) Desired Testing Afirma Performing Lab Veracyte [facility] Specimen Collected Date 11/25/2024 [facility] Path Result See scanned report [facility] Tissue 11/28/2024 12:1 8 PM ADULT LIVE IN CAREGIVER 11/28/2024 12:20 PM ADULT LIVE IN CAREGIVER Maisha Mabry MD LAB BLOOD ORDERABLES Fin al Result [facility] [address] [place] [address] * US Guided Thyroid Fine Needle Aspiration 1st Lesion (11/25/2024 1:07 PM ADULT LIVE IN CAREGIVER) Anatomical Region Laterality Modality Thyroid N/A Ultrasound 11/25/2024 1:52 PM ADULT LIVE IN CAREGIVER Impressions 11/25/2024 1:52 PM ADULT LIVE IN CAREGIVER 1. Successful thyroid biopsy of the 1.2cm nodule in the isthmus 2. Successful thyroid biopsy of the 1.0cm nodule in the right mid thyroid Electronically signed by: Kait Quiñones PA-C Narrative 11/25/2024 1:52 PM ADULT LIVE IN CAREGIVER EXAMINATION: ULTRASOUND-GUIDED THYROID FINE NEEDLE ASPIRATION HISTORY: [...] fine needle aspirates were handed to the slab polisher present during the procedure. Please refer to [...] fine needle aspirates were handed to the slab polisher present during the procedure. Please refer to [...] by: Kait Quiñones PA-C Maisha Mabry MD [facility] US PROCEDURES Final Result * Cytology (11/25/2024 12:59 PM ADULT LIVE IN CAREGIVER) Fluid (Thyroid Gland (Cytology)) 11/25/2024 1:00 PM ADULT LIVE IN CAREGIVER Narrative PATHOLOGY [facility] - 11/27/2024 2:38 PM ADULT LIVE IN CAREGIVER [address] [address] Tele: Lety Garcia MD - Orthopedics Teacher Note to Patients: This report may contain [...] CYTOLOGY REPORT Patient Name: FRANCES WILDER Address: [place] [address] Gender: F : 1945 (Age: 79) Service: Location: N : [id number] Hospital #: [id number] Patient Type [facility] ANCILLARY Taken: 11/25/2024 Reported: 11/27/2024 Physician(s): PABLITO [...] not support PDF viewing, please refer to [facility] or the original report to view the [...] in CytoRich Red in a container labeled Michele Frances L and Right thyroid mid are 10 [...] the cytospin preparations. Clerical Data Follows A; 10877, 41542` B; 52384, 70264` REPORT IMAGES AND/OR SCANNED DOCUMENTS ONLY VIEWABLE IN PDF FORMAT The immunohistochemical test(s) cited in this report, if any, was developed and its performance characteristics determined by [facility] Pathology Department. It has not been cleared or approved by the U.S. Food and Drug Administration. The FDA has determined that such clearance or approval is not necessary. This test is used for clinical purposes. It should not be regarded as investigational or for research. [facility] Laboratory is certified under the Clinical Laboratory Improvement Amendments of 1988 (CLIA) as qualified to perform high complexity testing. Immunostains were performed on formalin-fixed paraffin embedded tissue using a polymer diaminobenzidine chromogen detection system. Antibodies used may include clone 1D5 (mouse monoclonal, estrogen receptor), clone [id number] (mouse monoclonal progesterone receptor), MIB-1 (mouse monoclonal, Ki- 67), and CD117 (rabbit polyclonal, c-kit). In the event that immunohistochemistry or special stains have been performed, attending physician has confirmed appropriateness of controls. Frozen section, operating room consultation, gross examination and dissection, and case sign out may have been performed in part or completely in the following laboratories: [facility], [address] [place] [address], [address] [place] [address]. Maisha Mabry MD LAB CYTOLOGY ORDERABLES Final Result PATHOLOGY [facility] Laboratory Receiving [address] [place] [address] * US Thyroid (11/13/2024 10:25 AM ADULT LIVE IN CAREGIVER) Anatomical Region Laterality Modality Head and Neck N/A Ultrasound 11/13/2024 11:1 9 AM ADULT LIVE IN CAREGIVER Impressions 11/13/2024 11:19 AM ADULT LIVE IN CAREGIVER 1. Indeterminate TR 5 nodule in the lower thyroid isthmus appears to correlate with the abnormal CT PET images. Biopsy of this nodule is recommended. 2. There is an additional indeterminate nodule in the right thyroid lobe which is a TR 5 nodule. Biopsy of this nodule recommended as well. 3. Additional thyroid nodules require follow-up ultrasound in 12 months. Electronically signed by: Mary Jane Keith 11/13/2024 11:19 AM ADULT LIVE IN CAREGIVER Thyroid sonogram HISTORY:Thyroid nodule on PET study. [...] * Flow Leukemia/Lymphoma Blood (11/06/2024 8:30 AM ADULT LIVE IN CAREGIVER) Goel Stain Test Completed Comment:Testing performed by : [facility], [address] [place]., [address] Leukemia/Lymp andie Result See separate Surgical Pathology report. [facility] Comment:Testing performed by : [facility], [address] [place]., [address] Blood 11/06/2024 8:30 AM ADULT LIVE IN CAREGIVER 11/06/2024 11:45 AM ADULT LIVE IN CAREGIVER Maisha Mabry MD LAB PATHOLOGY ORDERABLES Final Result [facility] [address] Department [place] [address] * CLL FISH chronic lymphocyticleukemia (11/06/2024 8:30 AM ADULT LIVE IN CAREGIVER) CLL FISH Chronic LymphocyticLeukemia Panel-GenPath See scanned report Blood 11/06/2024 8:30 AM ADULT LIVE IN CAREGIVER 11/06/2024 9:00 AM ADULT LIVE IN CAREGIVER us Maisha Mabry MD LAB BLOOD ORDERABLES Fin al Result [facility] [address] Department [place] [address] * Differential, auto (11/06/2024 8:30 AM ADULT LIVE IN CAREGIVER) Neutrophil abs 3.9 1.5 - 6.5 K/cumm Imm gran abs 0.0 0.0 - 0.1 K/cumm [facility] Lymphocyte abs 3.3 0.8 - 3.3 K/cumm [facility] Monocyte abs 0.7 0.2 - 0.8 K/cumm [facility] Eosinophil abs 0.2 0.0 - 0.5 K/cumm [facility] Basophil abs 0.1 0.0 - 0.1 K/cumm [facility] Neutrophil pct 47.9 % [facility] Comment: Interpretive Data Percent cell count reference ranges are not reported, since discordance with absolute values may lead to misinterpretation of CBC data. Current Interpretive Data was last revised on 2018. Imm gran pct 0.2 % [facility] Comment: Interpretive Data Percent cell count reference ranges are not reported, since discordance with absolute values may lead to misinterpretation of CBC data. Current Interpretive Data was last revised on 2018. Lymphocyte pct 40.0 % [facility] Comment: Interpretive Data Percent cell count reference ranges are not reported, since discordance with absolute values may lead to misinterpretation of CBC data. Current Interpretive Data was last revised on 2018. Monocyte pct 8.6 % [facility] Comment: Interpretive Data Percent cell count reference ranges are not reported, since discordance with absolute values may lead to misinterpretation of CBC data. Current Interpretive Data was last revised on 2018. Eosinophil pct 2.3 % [facility] Comment: Interpretive Data Percent cell count reference ranges are not reported, since discordance with absolute values may lead to misinterpretation of CBC data. Current Interpretive Data was last revised on 2018. Basophil pct 1.0 % [facility] Comment: Interpretive Data Percent cell count reference ranges are not reported, since discordance with absolute values may lead to misinterpretation of CBC data. Current Interpretive Data was last revised on 2018. Blood 11/06/2024 8:30 AM ADULT LIVE IN CAREGIVER 11/06/2024 8:30 AM ADULT LIVE IN CAREGIVER Maisha Mabry MD LAB BLOOD ORDERABLES Fin al Result Performing Organization Address City/[facility]/ZIP Co de Phone Number [facility] [address] Department [employer] [place] [place] [address] * IgVH Mutation Analysis by PCR-GenPath (11/06/2024 8:30 AM ADULT LIVE IN CAREGIVER) [facility] IgVH Mutation Analysis by PCR-GenPath See scanned report Blood 11/06/2024 8:30 AM ADULT LIVE IN CAREGIVER 11/06/2024 9:00 AM ADULT LIVE IN CAREGIVER Maisha Mabry MD LAB BLOOD ORDERABLES Fin al Result Performing Organization Address [facility] de Phone Number [facility] [address] [employer] [place], [place] [id number] * (ABNORMAL) CBC with auto differential (11/06/2024 8:30 AM ADULT LIVE IN CAREGIVER) [facility] WBC 8.2 3.8 - 9.9 K/cumm Hgb 14.5 11.9 - 15.5 g/dL [facility] Hct 45.5 35.6 - 45.5 % [facility] Plt 167 150 - 400 K/cumm [facility] MPV 11.3 9.1 - 12.[address] [facility] RBC 5.21(H) 3.90 - 5.20 M/cumm [facility] MCV 87.3 81.3 - 96.[address] [facility] MCH 27.8 27.1 - 33.[address] [facility] MCHC 31.9(L) 32.3 - 35.7 g/dL [facility] RDW CV 13.7 11.1 - 14.9 % [facility] RDW SD 43.8 35.7 - 48.[address] [facility] NRBC abs 0.00 0.00 - 0.01 K/cumm [facility] Blood 11/06/2024 8:30 AM ADULT LIVE IN CAREGIVER 11/06/2024 8:30 AM ADULT LIVE IN CAREGIVER us Maisha Mabry MD LAB BLOOD ORDERABLES Fin al Result [address] Department [place] [address] * Surgical pathology (11/06/2024 8:23 AM ADULT LIVE IN CAREGIVER) Peripheral Blood For Pathologist Review 11/06/2024 8:23 AM ADULT LIVE IN CAREGIVER 11/06/2024 10:06 AM ADULT LIVE IN CAREGIVER Narrative 11/08/2024 4:03 PM ADULT LIVE IN CAREGIVER [address] [address] Tele: Lety Garcia MD - Orthopedics Teacher FLOW CYTOMETRY REPORT Note to Patients: This [...] the details. Patient Name: FRANCES WILDER Address: [place] [address] Gender: F : 1945 (Age: 79) Service: Location: N : [id number] Hospital #: [id number] Patient Type: MBC INFUSION SERIES Taken: 11/06/2024 Received: 11/06/2024 Reported: 11/08/2024 Physician(s): Maisha Mabry M.D. DIAGNOSIS: Peripheral blood, flow cytometric immunophenotypic analysis: - CD5 negative CD10 negative monoclonal B-cell population identified, see comment - No abnormal T-cell population identified [facility]11/08/2024 16:03 Examining Pathologist: Floyd Latif MD, PhD [...] CD123, HLA-DR, CD200, T-cell receptor gamma delta, [place], and Lambda. Clerical Data Follows [id number] REPORT IMAGES AND/OR SCANNED DOCUMENTS ONLY VIEWABLE IN PDF FORMAT The flow cytometry study included in this report is developed and its performance characteristics determined by [facility] Pathology Department and/or [facility]. It has not been cleared or approved by the U.S Food and Drug Administration (FDA) and FDA has determined that such clearance or approval is not necessary. This test is used for clinical purpose and it should not be regarded as investigational or for research. [facility] and/or [facility] is certified under the Clinical Laboratory Amendment of 1988 (CLIA) as qualified to perform high complex testing Maisha Mabry MD LAB PATHOLOGY ORDERABLES Final Result * PET/CT FDG Skull to Thigh (11/04/2024 10:17 AM ADULT LIVE IN CAREGIVER) Anatomical Region Laterality Modality N/A Positron Emissio n Tomography (PET) 11/04/2024 11:5 5 AM ADULT LIVE IN CAREGIVER Impressions 11/04/2024 12:03 PM ADULT LIVE IN CAREGIVER 1. No FDG avid lymphadenopathy above or [...] by: DO Checo Lezama 11/04/2024 12:03 PM ADULT LIVE IN CAREGIVER EXAMINATION: TUMOR FDG-PET/CT IMAGING DATE OF STUDY: 11/04/2024 SCANNER: [facility] RADIOPHARMACEUTICAL: 18.0 mCi F-18 Fluorodeoxyglucose (FDG) i.v. [...] obtained. The study was interpreted on the [employer] [place] workstation. The mean liver SUV (reported for quality lead purposes) is 3.8. The total scanned area [...] FDG-PET/CT IMAGING DATE OF STUDY: 11/04/2024 SCANNER: [facility] RADIOPHARMACEUTICAL: 18.0 mCi F-18 Fluorodeoxyglucose (FDG) i.v. [...] obtained. The study was interpreted on the [employer] [place] workstation. The mean liver SUV (reported for quality lead purposes) is 3.8. The total scanned area [...] it. Electronically signed by: Vadim Hatfield DO us Maisha Mabry MD IMG PET PROCEDURES Final Result * POCT glucose (11/04/2024 8:49 AM ADULT LIVE IN CAREGIVER) [facility] Signature Glucose, POC 76 70 - 199 mg/dL Comment: For Glucose values <35 mg/dl when Hematocrit is >60 mg/dl,the test may not accurately detect significant hypoglycemia,and testing in the Laboratory should be considered if clinically indicated. Blood 11/04/2024 8:49 AM ADULT LIVE IN CAREGIVER 11/04/2024 8:49 AM ADULT LIVE IN CAREGIVER Maisha Mabry MD LAB POCT ORDERABLES - DE VICE Final Result [facility] [address] [place] [address] from Last 3 Months Insurance [facility] MEDICARE [facility] MEDICARE AET MEDICARE Advance Directives For more information, please contact: [phone] * Full Code (Latest Code Status on File) Date Activated Date Inactivated Comments 05/21/2020 2:31 PM 05/22/2020 4:20 PM Care Teams Communications Designer Relationship Specialty Start Date End Date Bianca Boothe MD [address] [place] [address] PCP - General 06/26/14 Vincent Watts MD [address] [place] [address] Consulting Physician Radiation Oncology 11/22/18 Rose Marie Goyal MD [address] [facility] [address] [place] [address] Consulting Physician General Surgery 12/04/18 Huan Ureña MD [address] [facility] [address] [place] [address] Consulting Physician General Surgery 05/21/20 Cara Silva NP [address] [facility] [address] [place] [address] Nurse Practitioner Surgery 07/19/21 Maisha Mabry MD [address] [place], [place] [phone] Medical Oncologist/Hematologis t Hematology and Oncology 08/09/24
--- OUTSIDE RECORDS SUMMARY | 2025-01-20 20:45 | XMS_ITS | Clinical Summary ---
Author Organization [facility] Address [address] [place] [address] Care Team Providers Care Audio Director Name Role Phone Bianca Boothe MD Primary Care Provider [phone] Social History Tobacco Use Types Packs/Day Years Used Date Smoking Tobacco: Never Assessed Comments Unknown Sex and Gender Information Value Date Recorded Sex Assigned at Not on file Legal Sex Female 5:57 PM TECHNICAL ASSISTANT Gender Identity Not on file Sexual Orientation [...] Vaccine ( - 2023-2 5 season) 2024 Meningococcal B Vaccine Aged Out No l onger eligible based on patient's age to complete this topic Meningococcal Vaccine Aged Out No ayan corry eligible based on patient's age to complete this topic RSV Immunizations Under 20 Months Aged Out No longer eligible based on patient's age to complete this topic Insurance MED [employer] [facility] [place] [address] Care Teams Audio Director Relationship Specialty Start Date End Date Bianca Boothe MD PCP - General INTERNAL MEDICINE 02/13/20
--- OUTSIDE RECORDS SUMMARY | 2025-01-20 20:45 | XMS_ITS | Referral Summary ---
Author Organization [facility] Building [address] Address [address] [place] [address] Care Team Providers Care Vp Biology Name Role Phone Bianca Boothe MD Primary Care Provider Vincent Watts MD Unavailable Rose Marie Goyal MD Unavailable [phone] Huan Ureña MD Unavailable [phone] Cara Silva NP Unavailable [phone] Maisha Mabry MD Unavailable [phone] Encounters Date Type Department Care Team Description 12/17/2024 Documentation [facility] [address] [place] [phone] Lynette Rivera RN 11/25/2024 10:34 AM OUTPATIENT CODER - 11/25/2024 11:59 PM OUTPATIENT CODER Hospital Encounter [facility] [address] [place] [phone] Multiple thyroid nodules Discharge Disposition: Discharge to home or self care 11/14/2024 Orders Only [facility] [address] [place] [phone] Maisha Mabry MD Multiple thyroid nodules (Primary Dx) 11/13/2024 9:34 AM OUTPATIENT CODER - 11/13/2024 11:59 PM OUTPATIENT CODER Hospital Encounter [facility] [address] [place] [phone] Thyroid nodule Discharge Disposition: Discharge to home or self care 11/06/2024 Documentation [facility] [address] [place] [phone] Lynette Rivera RN 11/06/2024 8:30 AM OUTPATIENT CODER Lab [facility] [address] [place] [phone] CLL (chronic lymphocytic leukemia) (HCC) 11/06/2024 8:45 AM OUTPATIENT CODER Office Visit [facility] [address] [place] [phone] Maisha Mabry MD CLL (chronic lymphocytic leukemia) (HCC) (Primary Dx); Thyroid nodule 11/04/2024 8:32 AM OUTPATIENT CODER - 11/04/2024 11:59 PM OUTPATIENT CODER Hospital Encounter [facility] [address] [place] [phone] [facility] Pet Small lymphocytic lymphoma (HCC) Discharge Disposition: [...] Diagnosed Date Coronary artery disease invo lving [place] coronary artery of [place] heart without angina pectoris 07/16/2021 Assessment & [...] (05/13/2020): Added automatically from request for surgery [id number] History of right breast cancer 11/22/2018 Cancer Staging:Pathologic stage from 12/31/2018:Stage 0(pTis (DCIS), cN0, cM0, ER+, LA+, HER2: Not Assessed) - Signed by Cara [...] on file Legal Sex Female 11:41 PM OUTPATIENT CODER Gender Identity Not on file Sexual Orientation Not on file Last Filed Vital Signs Vital Sign Reading Time Taken Comments Blood Pressure 132/70 11/06/2024 8:37 AM OUTPATIENT CODER Pulse 71 11/06/2024 8:37 AM OUTPATIENT CODER Temperature 36.1 C (96.9 F) 11/06/2024 8:37 AM OUTPATIENT CODER Respiratory Rate 18 11/06/2024 8:37 AM OUTPATIENT CODER Oxygen Saturation 100% 11/06/2024 8:37 AM OUTPATIENT CODER Inhaled Oxygen Concentration - - Weight 86.1 kg (189 lb 12.8 oz) 11/06/2024 8:37 AM OUTPATIENT CODER Height 172.7 cm (5' 8 ) 10/03/2024 10:2 4 AM OUTPATIENT CODER Body Mass Index 28.86 10/03/2024 10:24 AM OUTPATIENT CODER Plan of Treatment Not on file Procedures Procedure Name Priority Date/Time Associated Diagnosis Comments MISC PATH REFER Routine 11/28/2024 12:18 PM OUTPATIENT CODER US GUIDED THYROID FINE NEEDLE ASPIRATION 1ST LESION Schedule Routine, Read Routine (OP Routine) 11/25/2024 1:07 PM OUTPATIENT CODER Multiple thyroid nodules CYTOLOGY Routine 11/25/2024 12:59 PM OUTPATIENT CODER Multiple thyroid nodules US THYROID Schedule Routine, Read Routine (OP Routine) 11/13/2024 10:25 AM OUTPATIENT CODER Thyroid nodule FLOW LEUKEMIA/LYMPHOMA Routine 8:30 AM OUTPATIENT CODER CLL (chronic lymphocytic leukemia) (HCC) DIFFERENTIAL AUTO Routine 11/06/2024 8:3 0 AM OUTPATIENT CODER CBC WITH AUTO DIFFERENTIAL Routine 11/06/2024 8:30 AM OUTPATIENT CODER IGVH MUTATION ANALYSIS BY PCR-GENPATH Routine 11/06/2024 8:30 AM OUTPATIENT CODER CLL (chronic lymphocytic leukemia) (HCC) CLL FISH CHRONIC LYMPHOCYTICLEUKEMIA Routine 11/06/2024 8:30 AM OUTPATIENT CODER CLL (chronic lymphocytic leukemia) (HCC) SURGICAL PATHOLOGY Routine 11/06/2024 8: 23 AM OUTPATIENT CODER PET/CT FDG SKULL TO THIGH Schedule Routine, Read Routine (OP Routine) 11/04/2024 10:17 AM OUTPATIENT CODER Small lymphocytic lymphoma (HCC) POCT GLUCOSE DEVICE Routine 11/04/2024 8 :49 AM OUTPATIENT CODER from Last 3 Months Results * Misc Path Refer (11/28/2024 12:18 PM OUTPATIENT CODER) Desired Testing Afirma Performing Lab Veracyte [facility] Specimen Collected Date 11/25/2024 [facility] Path Result See scanned report [facility] Tissue 11/28/2024 12:1 8 PM OUTPATIENT CODER 11/28/2024 12:20 PM OUTPATIENT CODER Maisha Mabry MD LAB BLOOD ORDERABLES Fin al Result [facility] [address] Department [place] [address] * US Guided Thyroid Fine Needle Aspiration 1st Lesion (11/25/2024 1:07 PM OUTPATIENT CODER) Anatomical Region Laterality Modality Thyroid N/A Ultrasound 11/25/2024 1:52 PM OUTPATIENT CODER Impressions 11/25/2024 1:52 PM OUTPATIENT CODER 1. Successful thyroid biopsy of the 1.2cm nodule in the isthmus 2. Successful thyroid biopsy of the 1.0cm nodule in the right mid thyroid Electronically signed by: ALICJA Herrera 11/25/2024 1:52 PM OUTPATIENT CODER EXAMINATION: ULTRASOUND-GUIDED THYROID FINE NEEDLE ASPIRATION HISTORY: [...] fine needle aspirates were handed to the labor relations consultant present during the procedure. Please refer to [...] fine needle aspirates were handed to the labor relations consultant present during the procedure. Please refer to [...] by: Kait Quiñones PA-C Maisha Mabry MD IMG US PROCEDURES Final Result * Cytology (11/25/2024 12:59 PM OUTPATIENT CODER) Fluid (Thyroid Gland (Cytology)) 11/25/2024 1:00 PM OUTPATIENT CODER Narrative PATHOLOGY [facility] - 11/27/2024 2:38 PM OUTPATIENT CODER [address] [address] Tele: Lety Garcai MD - Hot [place] Man Note to Patients: This report may contain [...] CYTOLOGY REPORT Patient Name: FRANCES WILDER Address: [place] [address] Gender: F : 1945 (Age: 79) Service: Location: Hospital #: [id number] Patient Type [facility] [place] ANCILLARY Taken: 11/25/2024 Reported: 11/27/2024 Physician(s): PABLITO Nick M.D. Rajneesh S. Jain, M.D. 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 ADDENDA: Addendum Comment This field contains a PDF document (see scanned image which follows report). If your system does not support PDF viewing, please refer to [employer] or the original report to view the [...] the cytospin preparations. Clerical Data Follows A; 12327, 81206` B; 48929, 65633` REPORT IMAGES AND/OR SCANNED DOCUMENTS ONLY VIEWABLE IN PDF FORMAT The immunohistochemical test(s) cited in this report, if any, was developed and its performance characteristics determined by [facility] Department. It has not been cleared or approved by the U.S. Food and Drug Administration. The FDA has determined that such clearance or approval is not necessary. This test is used for clinical purposes. It should not be regarded as investigational or for research. [facility] is certified under the Clinical Laboratory Improvement Amendments of 1988 (CLIA) as qualified to perform high complexity testing. Immunostains were performed on formalin-fixed paraffin embedded tissue using a polymer diaminobenzidine chromogen detection system. Antibodies used may include clone 1D5 (mouse monoclonal, estrogen receptor), clone [id number] (mouse monoclonal progesterone receptor), MIB-1 (mouse monoclonal, Ki- 67), and CD117 (rabbit polyclonal, c-kit). In the event that immunohistochemistry or special stains have been performed, attending physician has confirmed appropriateness of controls. Frozen section, operating room consultation, gross examination and dissection, and case sign out may have been performed in part or completely in the following laboratories: [facility], [facility] [place][note 2][facility], [place], [place] [address] [place] [address], [address] [place] [address], [place] [address]. Maisha Mabry MD LAB CYTOLOGY ORDERABLES Final Result PATHOLOGY [facility] Laboratory Receiving [address] [place], [place] [id number] * US Thyroid (11/13/2024 10:25 AM OUTPATIENT CODER) Anatomical Region Laterality Modality Head and Neck N/A Ultrasound 11/13/2024 11:1 9 AM OUTPATIENT CODER Impressions 11/13/2024 11:19 AM OUTPATIENT CODER 1. Indeterminate TR 5 nodule in the [...] Kiel Farrell M.D. Narrative 11/13/2024 11:19 AM OUTPATIENT CODER Thyroid sonogram HISTORY:Thyroid nodule on PET study. [...] months. Electronically signed by: Kiel Farrell M.D. us Maisha Mabry MD IM US PROCEDURES Final Result * Flow Leukemia/Lymphoma Blood (11/06/2024 8:30 AM OUTPATIENT CODER) Goel Stain Test Completed Comment:Testing performed by : [facility], [address] [facility], [place]., [address] Leukemia/Lymp andie Result See separate Surgical Pathology report. [facility] Comment:Testing performed by : [facility], [address] [place]., [address] Blood 11/06/2024 8:30 AM OUTPATIENT CODER 11/06/2024 11:45 AM OUTPATIENT CODER Maisha Mabry MD LAB PATHOLOGY ORDERABLES Final Result Performing Organization Address [facility]/ZIP Co de Phone Number [facility] [address] Department [place] [address] * CLL FISH chronic lymphocyticleukemia (11/06/2024 8:30 AM OUTPATIENT CODER) [facility] CLL FISH Chronic LymphocyticLeukemia Panel-GenPath See scanned report Blood 11/06/2024 8:30 AM OUTPATIENT CODER 11/06/2024 9:00 AM OUTPATIENT CODER Maisha Mabry MD LAB BLOOD ORDERABLES Fin al Result Performing Organization Address [facility] Co de Phone Number [facility] [address] Department [place] [address] * Differential, auto (11/06/2024 8:30 AM OUTPATIENT CODER) [facility] Neutrophil abs 3.9 1.5 - 6.5 K/cumm Imm gran abs 0.0 0.0 - 0.1 K/cumm [facility] Lymphocyte abs 3.3 0.8 - 3.3 K/cumm [facility] Monocyte abs 0.7 0.2 - 0.8 K/cumm [facility] Eosinophil abs 0.2 0.0 - 0.5 K/cumm [facility] Basophil abs 0.1 0.0 - 0.1 K/cumm [facility] Neutrophil pct 47.9 % [facility] Comment: Interpretive Data Percent cell count reference ranges are not reported, since discordance with absolute values may lead to misinterpretation of CBC data. Current Interpretive Data was last revised on 2018. Imm gran pct 0.2 % [facility] Comment: Interpretive Data Percent cell count reference ranges are not reported, since discordance with absolute values may lead to misinterpretation of CBC data. Current Interpretive Data was last revised on 2018. Lymphocyte pct 40.0 % [facility] Comment: Interpretive Data Percent cell count reference ranges are not reported, since discordance with absolute values may lead to misinterpretation of CBC data. Current Interpretive Data was last revised on 2018. Monocyte pct 8.6 % [facility] Comment: Interpretive Data Percent cell count reference ranges are not reported, since discordance with absolute values may lead to misinterpretation of CBC data. Current Interpretive Data was last revised on 2018. Eosinophil pct 2.3 % [facility] Comment: Interpretive Data Percent cell count reference ranges are not reported, since discordance with absolute values may lead to misinterpretation of CBC data. Current Interpretive Data was last revised on 2018. Basophil pct 1.0 % [facility] Comment: Interpretive Data Percent cell count reference ranges are not reported, since discordance with absolute values may lead to misinterpretation of CBC data. Current Interpretive Data was last revised on 2018. Blood 11/06/2024 8:30 AM OUTPATIENT CODER 11/06/2024 8:30 AM OUTPATIENT CODER Maisha Mabry MD LAB BLOOD ORDERABLES Fin al Result Performing Organization Address City/[facility]/ZIP Co de Phone Number [facility] [address] [facility] [employer] [place], [place] [id number] * IgVH Mutation Analysis by PCR-GenPath (11/06/2024 8:30 AM OUTPATIENT CODER) IgVH Mutation Analysis by PCR-GenPath See scanned report Blood 11/06/2024 8:30 AM OUTPATIENT CODER 11/06/2024 9:00 AM OUTPATIENT CODER Maisha Mabry MD LAB BLOOD ORDERABLES Fin al Result [facility] [address] [place] [address] * (ABNORMAL) CBC with auto differential (11/06/2024 8:30 AM OUTPATIENT CODER) WBC 8.2 3.8 - 9.9 K/cumm Hgb 14.5 11.9 - 15.5 g/dL [facility] Hct 45.5 35.6 - 45.5 % [facility] Plt 167 150 - 400 K/cumm [facility] MPV 11.3 9.1 - 12.[address] [facility] RBC 5.21(H) 3.90 - 5.20 M/cumm [facility] MCV 87.3 81.3 - 96.[address] [facility] MCH 27.8 27.1 - 33.[address] [facility] MCHC 31.9(L) 32.3 - 35.7 g/dL [facility] RDW CV 13.7 11.1 - 14.9 % [facility] RDW SD 43.8 35.7 - 48.[address] [facility] NRBC abs 0.00 0.00 - 0.01 K/cumm [facility] Blood 11/06/2024 8:30 AM OUTPATIENT CODER 11/06/2024 8:30 AM OUTPATIENT CODER Maisha Mabry MD LAB BLOOD ORDERABLES Fin al Result [place] [address] [facility] [place] [address] * Surgical pathology (11/06/2024 8:23 AM OUTPATIENT CODER) Peripheral Blood For Pathologist Review 11/06/2024 8:23 AM OUTPATIENT CODER 11/06/2024 10:06 AM OUTPATIENT CODER Narrative 11/08/2024 4:03 PM OUTPATIENT CODER [place] [address] [place], [place] [address] Tele: Ltey Garcia MD - [employer] Man FLOW CYTOMETRY REPORT Note to Patients: This [...] the details. Patient Name: FRANCES WILDER Address: [place] [address] Gender: F : 1945 (Age: 79) Service: Location: N : [id number] [facility] #: [id number] Patient Type: MBC INFUSION SERIES Taken: 11/06/2024 Received: 11/06/2024 Reported: 11/08/2024 Physician(s): Maihsa Mabry M.D. DIAGNOSIS: Peripheral blood, flow cytometric [...] CD123, HLA-DR, CD200, T-cell receptor gamma delta, [place], and Lambda. Clerical Data Follows [id number] REPORT IMAGES AND/OR SCANNED DOCUMENTS ONLY VIEWABLE IN PDF FORMAT The flow cytometry study included in this report is developed and its performance characteristics determined by [facility] Pathology Department and/or [facility]. It has not been cleared or approved by the U.S Food and Drug Administration (FDA) and FDA has determined that such clearance or approval is not necessary. This test is used for clinical purpose and it should not be regarded as investigational or for research. [facility] and/or [facility] is certified under the Clinical Laboratory Amendment of 1988 (CLIA) as qualified to perform high complex testing Maisha Mabry MD LAB PATHOLOGY ORDERABLES Final Result * PET/CT FDG Skull to Thigh (11/04/2024 10:17 AM OUTPATIENT CODER) Anatomical Region Laterality Modality N/A Positron Emissio n Tomography (PET) 11/04/2024 11:5 5 AM OUTPATIENT CODER Impressions 11/04/2024 12:03 PM OUTPATIENT CODER 1. No FDG avid lymphadenopathy above or [...] by: DO Checo Lezama 11/04/2024 12:03 PM OUTPATIENT CODER EXAMINATION: TUMOR FDG-PET/CT IMAGING DATE OF STUDY: 11/04/2024 SCANNER: [facility] RADIOPHARMACEUTICAL: 18.0 mCi F-18 Fluorodeoxyglucose (FDG) [...] obtained. The study was interpreted on the Pown[employer] workstation. The mean liver SUV (reported for chief vendor quality purposes) is 3.8. The total scanned area [...] diverticulitis. Small fat-containing umbilical hernia. Procedure Note LadonnaVadim hessDO - 11/04/2024 EXAMINATION: TUMOR FDG-PET/CT IMAGING DATE OF STUDY: 11/04/2024 SCANNER: [facility] RADIOPHARMACEUTICAL: 18.0 mCi F-18 Fluorodeoxyglucose (FDG) [...] obtained. The study was interpreted on the [employer] workstation. The mean liver SUV (reported for chief vendor quality purposes) is 3.8. The total scanned area [...] Result * POCT glucose (11/04/2024 8:49 AM OUTPATIENT CODER) Glucose, POC 76 70 - 199 mg/dL Comment: For Glucose values <35 mg/dl when Hematocrit is >60 mg/dl,the test may not accurately detect significant hypoglycemia,and testing in the Laboratory should be considered if clinically indicated. Blood 11/04/2024 8:49 AM OUTPATIENT CODER 11/04/2024 8:49 AM OUTPATIENT CODER Maisha Mabry MD LAB POCT ORDERABLES - DE VICE Final Result [facility] [address] [place] [address] from Last 3 Months Insurance [employer] MEDICARE [facility] MEDICARE [facility] MEDICARE Advance Directives For more information, please contact: [phone] * Full Code (Latest Code Status on File) Date Activated Date Inactivated Comments 05/21/2020 2:31 PM 05/22/2020 4:20 PM Care Teams Vp Biology Relationship Specialty Start Date End Date Bianca Botohe MD [address] [place] [address] PCP - General 06/26/14 Vincent Watts MD [address] [place] [address] Consulting Physician Radiation Oncology 11/22/18 Rose Marie Goyal MD [address] [address] Consulting Physician General Surgery 12/04/18 Huan Ureña MD [address] [phone] Consulting Physician General Surgery 05/21/20 Cara Silva NP [address] [phone] Nurse Practitioner Surgery 07/19/21 Maisha Mabry MD [address] [place], [place] [phone] Medical Oncologist/Hematologis t Hematology and Oncology 08/09/24
--- OUTSIDE RECORDS SUMMARY | 2025-01-20 20:45 | XMS_ITS | Clinical Summary ---
Author Organization [facility] Address [address] [place] [address] Care Team Providers Care Internal Controls Specialist Name Role Phone Bianca Boothe MD [...] Comments Blood Pressure 160/82 10/28/2022 10:12 AM PIEROGI MAKER Pulse 85 07/03/2018 11:31 AM CDT Temperature - - Respiratory Rate 16 07/03/2018 11:31 AM CDT Oxygen Saturation - - Inhaled Oxygen Concentration - - Weight 89.4 kg (197 lb) 10/28/2022 10:12 AM PIEROGI MAKER Height 167.6 cm (5' 6 ) 10/28/2022 10:12 AM PIEROGI MAKER Body Mass Index 31.8 10/28/2022 10:12 AM PIEROGI MAKER Plan of Treatment Health Maintenance Due Date [...] Maintenance Insurance [employer] PPO MCR Care Teams Internal Controls Specialist Relationship Specialty Start Date End Date Bianca Boothe MD [address] [place] [phone] PCP - General Internal Medicine 07/03/18
--- OUTSIDE RECORDS SUMMARY | 2025-01-20 20:45 | XMS_ITS ---
Author Organization [facility] D Address [address] [place] [address] Care Team Providers Care Photocomposition Keyboard Operator Name Role Phone Bianca Boothe MD Primary Care Provider Vincent Watts MD Unavailable [phone] Rose Marie Goyal MD Unavailable Huan Ureña MD Unavailable [phone] Cara Silva NP Unavailable [phone] Maisha Mabry MD Unavailable [phone] Active Problems Problem Noted Date Diagnosed Date Coronary artery disease invo lving [place] coronary artery of [place] heart without angina pectoris 07/16/2021 Assessment & [...] (05/13/2020): Added automatically from request for surgery [id number] History of right breast cancer 11/22/2018 Cancer Staging:Pathologic stage from 12/31/2018:Stage 0(pTis (DCIS), cN0, cM0, ER+, ID+, HER2: Not Assessed) - Signed by Cara [...]
--- NOTE | 2025-01-20 20:56 | ED.GENADULT ---
HPI - General Adult General Chief complaint: Unspecified Stated complaint: c/o high bp Time Seen by Provider: 01/20/25 20:56 Source: patient Mode of arrival: ambulatory Limitations: no limitations History of Present Illness HPI narrative: 79 years old white female came to the ED with unstable blood pressure. Patient was told by 1 of her specialist that she have something behind her eye which could be related to hypertension. Patient had history of hypertension, and currently on spironolactone 50 mg once a day. Patient normally does not check her blood pressure. today patient been checking her blood pressure on average every half an hour and she does get different reading each time. Highest reading at home is 157/98. Patient denies any headache, shortness of breath, chest pain, back pain or abdominal pain. Patient very anxious about her eye. at the bedside confirmed that the patient is more anxious lately Patient denies any fever, chills, nausea, vomiting. Related Data Home Medications ?Medication ?Instructions ?Recorded ?Confirmed ?Last Taken ?Type amitriptyline 10 mg tablet 5 mg PO HS 09/27/19 03/27/23 09/26/19 History mirabegron 25 mg tablet,extended 25 mg PO DAILY 09/27/19 03/27/23 09/27/19 History release 24 hr (Myrbetriq) omeprazole 20 mg capsule,delayed 20 mg PO DAILY 09/27/19 03/27/23 09/27/19 History release spironolactone 50 mg tablet 50 mg PO DAILY 09/27/19 03/27/23 09/27/19 History Allergies Allergy/AdvReac Type Severity Reaction Status Date / Time No Known Allergies Allergy Verified 03/27/23 17:11 Review of Systems Review of Systems: All systems reviewed & are unremarkable except as noted in HPI and below PMFSH Past Medical History Medical History (Updated 01/20/25 @ 21:07 by Nikole Jones MD) Uterine polyp Breast cancer GERD (gastroesophageal reflux disease) Surgical History Surgical History History of cholecystectomy S/P lumpectomy, right breast History of dilatation and curettage History of tonsillectomy Hx of cataract surgery History of foot surgery History of Achilles tendon repair Family History Family History Mother , of non-Hodgkin's lymphoma Acute myocardial infarction Father , ventricular fibrillation at age 71 No problems noted. Sibling Breast cancer Sibling Heart disease atrial fibrillation Social History Social History Smoking status: Never smoker Alcohol intake: never Substance use: never Living arrangements: with family Exam Narrative: General appearance: Well-developed, well-nourished Skin: Normal color Head: Normocephalic, nontraumatic Eyes: Clear conjunctiva ENT: Oropharynx normal, ears normal, nose normal Neck: Supple, nontender Chest and respiratory: Airway patent, no respiratory distress, no accessory muscle use Heart: Regular rate/rhythm Abdomen: Soft, nontender, no organomegaly, quiet bowel sounds Vascular: Normal peripheral pulses, normal capillary refill. 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, no gross motor deficit Course Vital Signs Vital signs: Vital Signs Temperature 36.3 C L 01/20/25 20:43 Pulse Rate 73 01/20/25 20:43 Respiratory Rate 18 01/20/25 20:43 Blood Pressure 177/87 H 01/20/25 20:43 Pulse Oximetry 96 01/20/25 20:43 Oxygen Delivery Room Air 01/20/25 20:43 Temperature 36.4 C 01/20/25 21:15 Pulse Rate 60 01/20/25 21:15 Respiratory Rate 18 01/20/25 21:15 Blood Pressure 144/82 H 01/20/25 21:15 Pulse Oximetry 95 01/20/25 21:15 Oxygen Delivery Room Air 01/20/25 21:15 Medical Decision Making [facility] Narrative Medical decision making narrative: Patient came with anxiety like symptoms Vital signs showing blood pressure 177/87, otherwise within normal limit Physical examination showing slightly restless patient Differential diagnosis anxiety like symptoms with uncontrolled hypertension. No labs or imaging are required at this time. My plan to give patient 0.5 mg of Ativan p.o. and monitor the patient for few minutes and repeat blood pressure. BLOOD PRESSURE IS 144/82 AT THE TIME OF DISCHARGE AFTER 0.5 MG OF ATIVAN P.O. Vital Signs Vital Signs: Vital Signs Temperature 36.3 C L 01/20/25 20:43 Pulse Rate 73 01/20/25 20:43 Respiratory Rate 18 01/20/25 20:43 Blood Pressure 177/87 H 01/20/25 20:43 Pulse Oximetry 96 01/20/25 20:43 Oxygen Delivery Room Air 01/20/25 20:43 Temperature 36.4 C 01/20/25 21:15 Pulse Rate 60 01/20/25 21:15 Respiratory Rate 18 01/20/25 21:15 Blood Pressure 144/82 H 01/20/25 21:15 Pulse Oximetry 95 01/20/25 21:15 Oxygen Delivery Room Air 01/20/25 21:15 Critical Care Time Critical Care Time Critical Care Time: No Discharge Plan Discharge Clinical Impression: Anxiety, Hypertension Patient Disposition: Home, Self-Care Condition: Improved Instructions: Hypertension (ED), Anxiety (ED) Additional Instructions: Return if symptoms are worsening , call your family physician for appointment, take Tylenol as as needed for aches and pain, continue home medications. Patient Language: Croatian Prescriptions: No Action amitriptyline 10 mg tablet 5 mg PO HS omeprazole 20 mg capsule,delayed release(DR/EC) 20 mg PO DAILY spironolactone 50 mg tablet 50 mg PO DAILY Myrbetriq 25 mg tablet extended release 24 hr 25 mg PO DAILY Follow-up/Referrals: Bianca Boothe MD [Primary Care Provider] -
[2025-01-20] MEDS: LORazepam (*CRX) 0.5 MG TABLET PO (21:01)
[2025-01-20 21:15] VITALS: BP 144/82; PULSE 60; RESP 18; TEMP 36.4; O2SAT 95
== END 2025-01-20 21:22 | disposition home or self-care (01) ==
PROVIDERS: Emergency Provider Emergency Medicine; PCP Internal Medicine
DX: I10 Essential (primary) hypertension (principal); F41.9 Anxiety disorder, unspecified; Z85.3 Personal history of malignant neoplasm of breast
CPT/HCPCS: 99283; A9270

== ENCOUNTER 2025-01-23 14:21 | Outpatient (CLI) | payer MEDICARE, SELFPAY ==
--- OUTSIDE RECORDS SUMMARY | 2025-01-23 14:47 | XMS_ITS | Clinical Summary ---
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 07/16/2021 Assessment & [...] (05/13/2020): Added automatically from request for surgery [id number] History of right breast cancer 11/22/2018 Cancer Staging:Pathologic stage from 12/31/2018:Stage 0(pTis (DCIS), cN0, cM0, ER+, SD+, HER2: Not Assessed) - Signed by Cara [...] Type Department Care Team Description 12/17/2024 Documentation [facility] [place] [address] Lynette Rivera RN 11/25/2024 10:34 AM ALLERGIST/MD - 11/25/2024 11:59 PM ALLERGIST/MD Hospital Encounter [facility] [address] [place] [phone] Multiple thyroid nodules Discharge Disposition: Discharge to home or self care 11/14/2024 Orders Only [facility] [address] [place] [phone] Maisha Mabry MD Multiple thyroid nodules (Primary Dx) 11/13/2024 9:34 AM ALLERGIST/MD - 11/13/2024 11:59 PM ALLERGIST/MD Hospital Encounter [facility] [address] [place] [phone] Thyroid nodule Discharge Disposition: Discharge to home or self care 11/06/2024 8:45 AM ALLERGIST/MD Office Visit [facility] [address] [place] [phone] Maisha Mabry MD CLL (chronic lymphocytic leukemia) (HCC) (Primary Dx); Thyroid nodule 11/06/2024 8:30 AM ALLERGIST/MD Lab [facility] [address] [place] [phone] CLL (chronic lymphocytic leukemia) (HCC) 11/06/2024 Documentation [facility] [address] [place] [phone] Lynette Rivera RN 11/04/2024 8:32 AM ALLERGIST/MD - 11/04/2024 11:59 PM ALLERGIST/MD Hospital Encounter [facility] [address] [place] [phone] [facility] Pet Small lymphocytic lymphoma (HCC) Discharge [...] on file Legal Sex Female 11:41 PM ALLERGIST/MD Gender Identity Not on file Sexual Orientation Not on file Obstetrics History Last Filed Vital Signs Vital Sign Reading Time Taken Comments Blood Pressure 132/70 11/06/2024 8:37 AM ALLERGIST/MD Pulse 71 11/06/2024 8:37 AM ALLERGIST/MD Temperature 36.1 C (96.9 F) 11/06/2024 8:37 AM ALLERGIST/MD Respiratory Rate 18 11/06/2024 8:37 AM ALLERGIST/MD Oxygen Saturation 100% 11/06/2024 8:37 AM ALLERGIST/MD Inhaled Oxygen Concentration - - Weight 86.1 kg (189 lb 12.8 oz) 11/06/2024 8:37 AM ALLERGIST/MD Height 172.7 cm (5' 8 ) 10/03/2024 10:2 4 AM ALLERGIST/MD Body Mass Index 28.86 10/03/2024 10:24 AM ALLERGIST/MD Plan of Treatment Health Maintenance Due Date Last Done Comments Depression Screening 1945 Hepatitis B Screening 1962 Zoster Vaccine (1 of 2) 1963 Well Visit 65+ 2009 Pneumococcal vaccine 65+ (2 of 2 - PPSV23) 11/17/2015 09/22/2015 Osteoporosis Screening-Bone Density Scan 01/17/2016 01/16/2014, 01/16/2014 Fall Risk Assessment 05/21/2021 05/21/2020 Influenza Vaccine (Season Ended) 2025 08/23/2023, 08/15/2019, 08/27/2018, Additional history exists DTaP/Tdap/Td Vaccine (2 - Td or Tdap) 12/08/2028 12/08/2018 Procedures Procedure Name Priority Date/Time Associated Diagnosis Comments MISC PATH REFER Routine 11/28/2024 12:18 PM ALLERGIST/MD US GUIDED THYROID FINE NEEDLE ASPIRATION 1ST LESION Schedule Routine, Read Routine (OP Routine) 11/25/2024 1:07 PM ALLERGIST/MD Multiple thyroid nodules CYTOLOGY Routine 11/25/2024 12:59 PM ALLERGIST/MD Multiple thyroid nodules US THYROID Schedule Routine, Read Routine (OP Routine) 11/13/2024 10:25 AM ALLERGIST/MD Thyroid nodule FLOW LEUKEMIA/LYMPHOMA Routine 8:30 AM ALLERGIST/MD CLL (chronic lymphocytic leukemia) (HCC) DIFFERENTIAL AUTO Routine 11/06/2024 8:3 0 AM ALLERGIST/MD CBC WITH AUTO DIFFERENTIAL Routine 11/06/2024 8:30 AM ALLERGIST/MD IGVH MUTATION ANALYSIS BY PCR-GENPATH Routine 11/06/2024 8:30 AM ALLERGIST/MD CLL (chronic lymphocytic leukemia) (HCC) CLL FISH CHRONIC LYMPHOCYTICLEUKEMIA Routine 11/06/2024 8:30 AM ALLERGIST/MD CLL (chronic lymphocytic leukemia) (HCC) SURGICAL PATHOLOGY Routine 11/06/2024 8: 23 AM ALLERGIST/MD PET/CT FDG SKULL TO THIGH Schedule Routine, Read Routine (OP Routine) 11/04/2024 10:17 AM ALLERGIST/MD Small lymphocytic lymphoma (HCC) POCT GLUCOSE DEVICE Routine 11/04/2024 8 :49 AM ALLERGIST/MD from Last 3 Months Results * Misc Path Refer (11/28/2024 12:18 PM ALLERGIST/MD) Desired Testing Afirma Performing Lab Veracyte [facility] Specimen Collected Date 11/25/2024 [facility] Path Result See scanned report [facility] Tissue 11/28/2024 12:1 8 PM ALLERGIST/MD 11/28/2024 12:20 PM ALLERGIST/MD Maisha Mabry MD LAB BLOOD ORDERABLES Fin al Result [facility] [address] [place] [address] * US Guided Thyroid Fine Needle Aspiration 1st Lesion (11/25/2024 1:07 PM ALLERGIST/MD) Anatomical Region Laterality Modality Thyroid N/A Ultrasound 11/25/2024 1:52 PM ALLERGIST/MD Impressions 11/25/2024 1:52 PM ALLERGIST/MD 1. Successful thyroid biopsy of the 1.2cm nodule in the isthmus 2. Successful thyroid biopsy of the 1.0cm nodule in the right mid thyroid Electronically signed by: Kait Quiñones PA-C Narrative 11/25/2024 1:52 PM ALLERGIST/MD EXAMINATION: ULTRASOUND-GUIDED THYROID FINE NEEDLE ASPIRATION HISTORY: [...] needle aspirates were handed to the slab grinder present during the procedure. Please refer to [...] needle aspirates were handed to the slab grinder present during the procedure. Please refer to [...] by: Kait Quiñones PA-C Maisha Mabry MD [facility] [place] PROCEDURES Final Result * Cytology (11/25/2024 12:59 PM ALLERGIST/MD) Fluid (Thyroid Gland (Cytology)) 11/25/2024 1:00 PM ALLERGIST/MD Narrative PATHOLOGY [facility] - 11/27/2024 2:38 PM ALLERGIST/MD [address] [address] Tele: Lety Garcia MD - Packaging Designer Note to Patients: This report may contain [...] CYTOLOGY REPORT Patient Name: FRANCES WILDER Address: [place] [address] Gender: F : 1945 (Age: 79) Service: Location: N : [id number] Hospital #: [id number] Patient Type [facility] Taken: 11/25/2024 Reported: 11/27/2024 Physician(s): PABLITO [...] not support PDF viewing, please refer to [facility] or the original report to view the [...] the cytospin preparations. Clerical Data Follows A; 12035, 87319` B; 29449, 61686` REPORT IMAGES AND/OR SCANNED DOCUMENTS ONLY VIEWABLE IN PDF FORMAT The immunohistochemical test(s) cited in this report, if any, was developed and its performance characteristics determined by [facility] Pathology Department. It has not been cleared or approved by the U.S. Food and Drug Administration. The FDA has determined that such clearance or approval is not necessary. This test is used for clinical purposes. It should not be regarded as investigational or for research. [facility] is certified under the Clinical Laboratory Improvement Amendments of 1988 (CLIA) as qualified to perform high complexity testing. Immunostains were performed on formalin-fixed paraffin embedded tissue using a polymer diaminobenzidine chromogen detection system. Antibodies used may include clone [id number] (mouse monoclonal, estrogen receptor), clone [id number] (mouse monoclonal progesterone receptor), MIB-1 (mouse monoclonal, Ki- 67), and CD117 (rabbit polyclonal, c-kit). In the event that immunohistochemistry or special stains have been performed, attending physician has confirmed appropriateness of controls. Frozen section, operating room consultation, gross examination and dissection, and case sign out may have been performed in part or completely in the following laboratories: [facility], [address] [place] [address], [address] [place] [address]. Maisha Mabry MD LAB CYTOLOGY ORDERABLES Final Result PATHOLOGY [facility] Laboratory Receiving [address] [place] [address] * US Thyroid (11/13/2024 10:25 AM ALLERGIST/MD) Anatomical Region Laterality Modality Head and Neck N/A Ultrasound 11/13/2024 11:1 9 AM ALLERGIST/MD Impressions 11/13/2024 11:19 AM ALLERGIST/MD 1. Indeterminate TR 5 nodule in the [...] by: Mary Jane Keith 11/13/2024 11:19 AM ALLERGIST/MD Thyroid sonogram HISTORY:Thyroid nodule on PET study. [...] * Flow Leukemia/Lymphoma Blood (11/06/2024 8:30 AM ALLERGIST/MD) Goel Stain Test Completed Comment:Testing performed by : [facility], [address] [place]., [address] Leukemia/Lymp andie Result See separate Surgical Pathology report. [facility] Comment:Testing performed by : [facility], [address] [place]., [address] Blood 11/06/2024 8:30 AM ALLERGIST/MD 11/06/2024 11:45 AM ALLERGIST/MD Maisha Mabry MD LAB PATHOLOGY ORDERABLES Final Result [facility] [address] Department [place] [address] * CLL FISH chronic lymphocyticleukemia (11/06/2024 8:30 AM ALLERGIST/MD) CLL FISH Chronic LymphocyticLeukemia Panel-GenPath See scanned report Blood 11/06/2024 8:30 AM ALLERGIST/MD 11/06/2024 9:00 AM ALLERGIST/MD us Maisha Mabry MD LAB BLOOD ORDERABLES Fin al Result [facility] [address] Department [place] [address] * Differential, auto (11/06/2024 8:30 AM ALLERGIST/MD) Neutrophil abs 3.9 1.5 - 6.5 K/cumm Imm gran abs 0.0 0.0 - 0.1 K/cumm [facility] Lymphocyte abs 3.3 0.8 - 3.3 K/cumm [facility] Monocyte abs 0.7 0.2 - 0.8 K/cumm [facility] Eosinophil abs 0.2 0.0 - 0.5 K/cumm [facility] Basophil abs 0.1 0.0 - 0.1 K/cumm [facility] Neutrophil pct 47.9 % [facility] Comment: Interpretive Data Percent cell count reference ranges are not reported, since discordance with absolute values may lead to misinterpretation of CBC data. Current Interpretive Data was last revised on 2018. Imm gran pct 0.2 % [facility] Comment: Interpretive Data Percent cell count reference ranges are not reported, since discordance with absolute values may lead to misinterpretation of CBC data. Current Interpretive Data was last revised on 2018. Lymphocyte pct 40.0 % [facility] Comment: Interpretive Data Percent cell count reference ranges are not reported, since discordance with absolute values may lead to misinterpretation of CBC data. Current Interpretive Data was last revised on 2018. Monocyte pct 8.6 % [facility] Comment: Interpretive Data Percent cell count reference ranges are not reported, since discordance with absolute values may lead to misinterpretation of CBC data. Current Interpretive Data was last revised on 2018. Eosinophil pct 2.3 % [facility] Comment: Interpretive Data Percent cell count reference ranges are not reported, since discordance with absolute values may lead to misinterpretation of CBC data. Current Interpretive Data was last revised on 2018. Basophil pct 1.0 % [facility] Comment: Interpretive Data Percent cell count reference ranges are not reported, since discordance with absolute values may lead to misinterpretation of CBC data. Current Interpretive Data was last revised on 2018. Blood 11/06/2024 8:30 AM ALLERGIST/MD 11/06/2024 8:30 AM ALLERGIST/MD Maisha Mabry MD LAB BLOOD ORDERABLES Fin al Result Performing Organization Address City/[facility]/ZIP Co de Phone Number [facility] [address] [place] [address] * IgVH Mutation Analysis by PCR-GenPath (11/06/2024 8:30 AM ALLERGIST/MD) [facility] IgVH Mutation Analysis by PCR-GenPath See scanned report Blood 11/06/2024 8:30 AM ALLERGIST/MD 11/06/2024 9:00 AM ALLERGIST/MD Maisha Mabry MD LAB BLOOD ORDERABLES Fin al Result Performing Organization Address [facility] de Phone Number [facility] [address] [employer] [place], [place] [id number] * (ABNORMAL) CBC with auto differential (11/06/2024 8:30 AM ALLERGIST/MD) [facility] WBC 8.2 3.8 - 9.9 K/cumm Hgb 14.5 11.9 - 15.5 g/dL [facility] Hct 45.5 35.6 - 45.5 % [facility] Plt 167 150 - 400 K/cumm [facility] MPV 11.3 9.1 - 12.3 fL [facility] RBC 5.21(H) 3.90 - 5.20 M/cumm [facility] MCV 87.3 81.3 - 96.4 fL [facility] MCH 27.8 27.1 - 33.3 pg [facility] MCHC 31.9(L) 32.3 - 35.7 g/dL [facility] RDW CV 13.7 11.1 - 14.9 % [facility] RDW SD 43.8 35.7 - 48.1 fL [facility] NRBC abs 0.00 0.00 - 0.01 K/cumm [facility] Blood 11/06/2024 8:30 AM ALLERGIST/MD 11/06/2024 8:30 AM ALLERGIST/MD us Maisha Mabry MD LAB BLOOD ORDERABLES Fin al Result [address] Department [place] [address] * Surgical pathology (11/06/2024 8:23 AM ALLERGIST/MD) Peripheral Blood For Pathologist Review 11/06/2024 8:23 AM ALLERGIST/MD 11/06/2024 10:06 AM ALLERGIST/MD Narrative 11/08/2024 4:03 PM ALLERGIST/MD [address] [address] Tele: Lety Garcia MD - Packaging Designer FLOW CYTOMETRY REPORT Note to Patients: This [...] the details. Patient Name: FRANCES WILDER Address: [place] [address] Gender: F : 1945 (Age: 79) Service: Location: N : [id number] Hospital #: [id number] Patient Type: MBC INFUSION SERIES Taken: 11/06/2024 Received: 11/06/2024 Reported: 11/08/2024 Physician(s): Maisha Mabry M.D. DIAGNOSIS: Peripheral blood, flow cytometric immunophenotypic analysis: - CD5 negative CD10 negative monoclonal B-cell population identified, see comment - No abnormal T-cell population identified [facility]11/08/2024 16:03 Examining Pathologist: Floyd Latif MD, [...] CD123, HLA-DR, CD200, T-cell receptor gamma delta, [place], and Lambda. Clerical Data Follows [id number] REPORT IMAGES AND/OR SCANNED DOCUMENTS ONLY VIEWABLE IN PDF FORMAT The flow cytometry study included in this report is developed and its performance characteristics determined by [facility] Pathology Department and/or [facility]. It has not been cleared or approved by the U.S Food and Drug Administration (FDA) and FDA has determined that such clearance or approval is not necessary. This test is used for clinical purpose and it should not be regarded as investigational or for research. [facility] and/or [facility] is certified under the Clinical Laboratory Amendment of 1988 (CLIA) as qualified to perform high complex testing Maisha Mabry MD LAB PATHOLOGY ORDERABLES Final Result * PET/CT FDG Skull to Thigh (11/04/2024 10:17 AM ALLERGIST/MD) Anatomical Region Laterality Modality N/A Positron Emissio n Tomography (PET) 11/04/2024 11:5 5 AM ALLERGIST/MD Impressions 11/04/2024 12:03 PM ALLERGIST/MD 1. No FDG avid lymphadenopathy above or [...] by: DO Checo Lezama 11/04/2024 12:03 PM ALLERGIST/MD EXAMINATION: TUMOR FDG-PET/CT IMAGING DATE OF STUDY: 11/04/2024 SCANNER: [facility] RADIOPHARMACEUTICAL: 18.0 mCi F-18 Fluorodeoxyglucose (FDG) i.v. [...] obtained. The study was interpreted on the Trovit workstation. The mean liver SUV (reported for quality improvement specialist purposes) is 3.8. The total scanned area [...] FDG-PET/CT IMAGING DATE OF STUDY: 11/04/2024 SCANNER: [facility] RADIOPHARMACEUTICAL: 18.0 mCi F-18 Fluorodeoxyglucose (FDG) i.v. [...] obtained. The study was interpreted on the Trovit workstation. The mean liver SUV (reported for quality improvement specialist purposes) is 3.8. The total scanned area [...] Result * POCT glucose (11/04/2024 8:49 AM ALLERGIST/MD) [facility] Signature Glucose, POC 76 70 - 199 mg/dL Comment: For Glucose values <35 mg/dl when Hematocrit is >60 mg/dl,the test may not accurately detect significant hypoglycemia,and testing in the Laboratory should be considered if clinically indicated. Blood 11/04/2024 8:49 AM ALLERGIST/MD 11/04/2024 8:49 AM ALLERGIST/MD Maisha Mabry MD LAB POCT ORDERABLES - DE VICE Final Result [facility] [address] [place] [address] from Last 3 Months Insurance [facility] MEDICARE [facility] MED[facility] Address: [id number] [place] [address] [facility] MEDICARE AET MEDICARE Advance Directives For more information, please contact: [phone] * Full Code (Latest Code Status on File) Date Activated Date Inactivated Comments 05/21/2020 2:31 PM 05/22/2020 4:20 PM Care Teams Caul Dresser Relationship Specialty Start Date End Date Bianca Boothe MD [address] [place] [address] PCP - General 06/26/14 Vincent Watts MD [address] DEPT [place] [address] Consulting Physician Radiation Oncology 11/22/18 Rose Marie Goyal MD [address] [facility] [address] [place] [address] Consulting Physician General Surgery 12/04/18 Huan Ureña MD [address] [facility] [address] [place] [address] Consulting Physician General Surgery 05/21/20 Cara Silva NP [address] [facility] [address] [place] [address] Nurse Practitioner Surgery 07/19/21 Maisha Mabry MD [address] [place], [place] [id number] Medical Oncologist/Hematologis t Hematology and Oncology 08/09/24
--- OUTSIDE RECORDS SUMMARY | 2025-01-23 14:47 | XMS_ITS | Referral Summary ---
Author Organization [facility] Building D Address [address] [place] [address] Care Team Providers Care Plant Ecologist Name Role Phone Bianca oBothe MD Primary Care Provider Vincent Watts MD Unavailable Rose Marie Goyal MD Unavailable Huan Ureña MD Unavailable [phone] Cara Silva NP Unavailable Maisha Mabry MD Unavailable Encounters Date Type Department Care Team Description 12/17/2024 Documentation [facility] [address] [place] [phone] Lynette Rivera RN 11/25/2024 10:34 AM BOOK CUTTER - 11/25/2024 11:59 PM BOOK CUTTER Hospital Encounter [facility] [address] [place] [phone] Multiple thyroid nodules Discharge Disposition: Discharge to home or self care 11/14/2024 Orders Only [facility] [address] [place] [phone] Maisha Mabry MD Multiple thyroid nodules (Primary Dx) 11/13/2024 9:34 AM BOOK CUTTER - 11/13/2024 11:59 PM BOOK CUTTER Hospital Encounter [facility] [address] [place] [phone] Thyroid nodule Discharge Disposition: Discharge to home or self care 11/06/2024 Documentation [facility] [address] [place] [phone] Lynette Rivera RN 11/06/2024 8:30 AM BOOK CUTTER Lab [facility] [address] [place] [phone] CLL (chronic lymphocytic leukemia) (HCC) 11/06/2024 8:45 AM BOOK CUTTER Office Visit [facility] [address] [place] [phone] Maisha Mabry MD CLL (chronic lymphocytic leukemia) (HCC) (Primary Dx); Thyroid nodule 11/04/2024 8:32 AM BOOK CUTTER - 11/04/2024 11:59 PM BOOK CUTTER Hospital Encounter [facility] [address] [place] [phone] Monica [facility] Pet Small lymphocytic lymphoma (HCC) Discharge [...] Diagnosed Date Coronary artery disease invo lving [place] coronary artery of [place] heart without angina pectoris 07/16/2021 Assessment & [...] (05/13/2020): Added automatically from request for surgery [id number] History of right breast cancer 11/22/2018 Cancer Staging:Pathologic stage from 12/31/2018:Stage 0(pTis (DCIS), cN0, cM0, ER+, MO+, HER2: Not Assessed) - Signed by Cara [...] on file Legal Sex Female 11:41 PM BOOK CUTTER Gender Identity Not on file Sexual Orientation Not on file Last Filed Vital Signs Vital Sign Reading Time Taken Comments Blood Pressure 132/70 11/06/2024 8:37 AM BOOK CUTTER Pulse 71 11/06/2024 8:37 AM BOOK CUTTER Temperature 36.1 C (96.9 F) 11/06/2024 8:37 AM BOOK CUTTER Respiratory Rate 18 11/06/2024 8:37 AM BOOK CUTTER Oxygen Saturation 100% 11/06/2024 8:37 AM BOOK CUTTER Inhaled Oxygen Concentration - - Weight 86.1 kg (189 lb 12.8 oz) 11/06/2024 8:37 AM BOOK CUTTER Height 172.7 cm (5' 8 ) 10/03/2024 10:2 4 AM BOOK CUTTER Body Mass Index 28.86 10/03/2024 10:24 AM BOOK CUTTER Plan of Treatment Not on file Procedures Procedure Name Priority Date/Time Associated Diagnosis Comments MISC PATH REFER Routine 11/28/2024 12:18 PM BOOK CUTTER US GUIDED THYROID FINE NEEDLE ASPIRATION 1ST LESION Schedule Routine, Read Routine (OP Routine) 11/25/2024 1:07 PM BOOK CUTTER Multiple thyroid nodules CYTOLOGY Routine 11/25/2024 12:59 PM BOOK CUTTER Multiple thyroid nodules US THYROID Schedule Routine, Read Routine (OP Routine) 11/13/2024 10:25 AM BOOK CUTTER Thyroid nodule FLOW LEUKEMIA/LYMPHOMA Routine 8:30 AM BOOK CUTTER CLL (chronic lymphocytic leukemia) (HCC) DIFFERENTIAL AUTO Routine 11/06/2024 8:3 0 AM BOOK CUTTER CBC WITH AUTO DIFFERENTIAL Routine 11/06/2024 8:30 AM BOOK CUTTER IGVH MUTATION ANALYSIS BY PCR-GENPATH Routine 11/06/2024 8:30 AM BOOK CUTTER CLL (chronic lymphocytic leukemia) (HCC) CLL FISH CHRONIC LYMPHOCYTICLEUKEMIA Routine 11/06/2024 8:30 AM BOOK CUTTER CLL (chronic lymphocytic leukemia) (HCC) SURGICAL PATHOLOGY Routine 11/06/2024 8: 23 AM BOOK CUTTER PET/CT FDG SKULL TO THIGH Schedule Routine, Read Routine (OP Routine) 11/04/2024 10:17 AM BOOK CUTTER Small lymphocytic lymphoma (HCC) POCT GLUCOSE DEVICE Routine 11/04/2024 8 :49 AM BOOK CUTTER from Last 3 Months Results * Misc Path Refer (11/28/2024 12:18 PM BOOK CUTTER) Desired Testing Afirma Performing Lab Veracyte [facility] Specimen Collected Date 11/25/2024 [facility] Path Result See scanned report [facility] Tissue 11/28/2024 12:1 8 PM BOOK CUTTER 11/28/2024 12:20 PM BOOK CUTTER Maisha Mabry MD LAB BLOOD ORDERABLES Fin al Result [facility] [address] Department [place] [address] * US Guided Thyroid Fine Needle Aspiration 1st Lesion (11/25/2024 1:07 PM BOOK CUTTER) Anatomical Region Laterality Modality Thyroid N/A Ultrasound 11/25/2024 1:52 PM BOOK CUTTER Impressions 11/25/2024 1:52 PM BOOK CUTTER 1. Successful thyroid biopsy of the 1.2cm nodule in the isthmus 2. Successful thyroid biopsy of the 1.0cm nodule in the right mid thyroid Electronically signed by: ALICJA Herrera 11/25/2024 1:52 PM BOOK CUTTER EXAMINATION: ULTRASOUND-GUIDED THYROID FINE NEEDLE ASPIRATION HISTORY: [...] fine needle aspirates were handed to the labelling machine operator present during the procedure. Please refer to [...] fine needle aspirates were handed to the labelling machine operator present during the procedure. Please refer to [...] Final Result * Cytology (11/25/2024 12:59 PM BOOK CUTTER) Fluid (Thyroid Gland (Cytology)) 11/25/2024 1:00 PM BOOK CUTTER Narrative [facility]OLOGY [facility] - 11/27/2024 2:38 PM BOOK CUTTER [address] [address] Tele: Lety Garcia MD - Food Beverage Manager Note to Patients: This report may contain [...] CYTOLOGY REPORT Patient Name: FRANCES WILDER Address: [place] [address] Gender: F : 1945 (Age: 79) Service: Location: Hospital #: [id number] Patient Type [facility] Taken: 11/25/2024 Reported: 11/27/2024 Physician(s): PABLITO Nick M.D. Rajneesh S. Jain, M.D. 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 ADDENDA: Addendum Comment This field contains a PDF document (see scanned image which follows report). If your system does not support PDF viewing, please refer to Appistry or the original report to view the [...] the cytospin preparations. Clerical Data Follows A; 38458, 42666` B; 33525, 85768` REPORT IMAGES AND/OR SCANNED DOCUMENTS ONLY VIEWABLE IN PDF FORMAT The immunohistochemical test(s) cited in this report, if any, was developed and its performance characteristics determined by [facility]. It has not been cleared or approved by the U.S. Food and Drug Administration. The FDA has determined that such clearance or approval is not necessary. This test is used for clinical purposes. It should not be regarded as investigational or for research. [facility] is certified under the Clinical Laboratory Improvement Amendments of 1988 (CLIA) as qualified to perform high complexity testing. Immunostains were performed on formalin-fixed paraffin embedded tissue using a polymer diaminobenzidine chromogen detection system. Antibodies used may include clone 1D5 (mouse monoclonal, estrogen receptor), clone [id number] (mouse monoclonal progesterone receptor), MIB-1 (mouse monoclonal, Ki- 67), and CD117 (rabbit polyclonal, c-kit). In the event that immunohistochemistry or special stains have been performed, attending physician has confirmed appropriateness of controls. Frozen section, operating room consultation, gross examination and dissection, and case sign out may have been performed in part or completely in the following laboratories: [facility], [facility], [place], [place] [address] [place] [address], [address] [place] [address], [place] [address]. Maisha Mabry MD LAB CYTOLOGY ORDERABLES Final Result PATHOLOGY [facility] Laboratory Receiving [address] [place], [place] [id number] * US Thyroid (11/13/2024 10:25 AM BOOK CUTTER) Anatomical Region Laterality Modality Head and Neck N/A Ultrasound 11/13/2024 11:1 9 AM BOOK CUTTER Impressions 11/13/2024 11:19 AM BOOK CUTTER 1. Indeterminate TR 5 nodule in the [...] Kiel Farrell M.D. Narrative 11/13/2024 11:19 AM BOOK CUTTER Thyroid sonogram HISTORY:Thyroid nodule on PET study. [...] * Flow Leukemia/Lymphoma Blood (11/06/2024 8:30 AM BOOK CUTTER) Goel Stain Test Completed Comment:Testing performed by : [facility], [address] [facility], [place]., [address] Leukemia/Lymp andie Result See separate Surgical Pathology report. [facility] Comment:Testing performed by : [facility], [address] [place]., [address] Blood 11/06/2024 8:30 AM BOOK CUTTER 11/06/2024 11:45 AM BOOK CUTTER Maisha Mabry MD LAB PATHOLOGY ORDERABLES Final Result Performing Organization Address [facility]/ZIP Co de Phone Number [facility] [address] Department [place] [address] * CLL FISH chronic lymphocyticleukemia (11/06/2024 8:30 AM BOOK CUTTER) [facility] CLL FISH Chronic LymphocyticLeukemia Panel-GenPath See scanned report Blood 11/06/2024 8:30 AM BOOK CUTTER 11/06/2024 9:00 AM BOOK CUTTER Maisha Mabry MD LAB BLOOD ORDERABLES Fin al Result Performing Organization Address [facility] Co de Phone Number [facility] [address] [place] [address] * Differential, auto (11/06/2024 8:30 AM BOOK CUTTER) [facility] Neutrophil abs 3.9 1.5 - 6.5 K/cumm Imm gran abs 0.0 0.0 - 0.1 K/cumm [facility] Lymphocyte abs 3.3 0.8 - 3.3 K/cumm [facility] Monocyte abs 0.7 0.2 - 0.8 K/cumm [facility] Eosinophil abs 0.2 0.0 - 0.5 K/cumm [facility] Basophil abs 0.1 0.0 - 0.1 K/cumm [facility] Neutrophil pct 47.9 % [facility] Comment: Interpretive Data Percent cell count reference ranges are not reported, since discordance with absolute values may lead to misinterpretation of CBC data. Current Interpretive Data was last revised on 2018. Imm gran pct 0.2 % [facility] Comment: Interpretive Data Percent cell count reference ranges are not reported, since discordance with absolute values may lead to misinterpretation of CBC data. Current Interpretive Data was last revised on 2018. Lymphocyte pct 40.0 % [facility] Comment: Interpretive Data Percent cell count reference ranges are not reported, since discordance with absolute values may lead to misinterpretation of CBC data. Current Interpretive Data was last revised on 2018. Monocyte pct 8.6 % [facility] Comment: Interpretive Data Percent cell count reference ranges are not reported, since discordance with absolute values may lead to misinterpretation of CBC data. Current Interpretive Data was last revised on 2018. Eosinophil pct 2.3 % [facility] Comment: Interpretive Data Percent cell count reference ranges are not reported, since discordance with absolute values may lead to misinterpretation of CBC data. Current Interpretive Data was last revised on 2018. Basophil pct 1.0 % [facility] Comment: Interpretive Data Percent cell count reference ranges are not reported, since discordance with absolute values may lead to misinterpretation of CBC data. Current Interpretive Data was last revised on 2018. Blood 11/06/2024 8:30 AM BOOK CUTTER 11/06/2024 8:30 AM BOOK CUTTER Maisha Mabry MD LAB BLOOD ORDERABLES Fin al Result Performing Organization Address City/[facility]/ZIP Co de Phone Number [facility] [address] [facility] [place], [place] [id number] * IgVH Mutation Analysis by PCR-GenPath (11/06/2024 8:30 AM BOOK CUTTER) IgVH Mutation Analysis by PCR-GenPath See scanned report Blood 11/06/2024 8:30 AM BOOK CUTTER 11/06/2024 9:00 AM BOOK CUTTER Maisha Mabry MD LAB BLOOD ORDERABLES Fin al Result [facility] [address] [place] [address] * (ABNORMAL) CBC with auto differential (11/06/2024 8:30 AM BOOK CUTTER) WBC 8.2 3.8 - 9.9 K/cumm Hgb 14.5 11.9 - 15.5 g/dL [facility] Hct 45.5 35.6 - 45.5 % [facility] Plt 167 150 - 400 K/cumm [facility] MPV 11.3 9.1 - 12.3 fL [facility] RBC 5.21(H) 3.90 - 5.20 M/cumm [facility] MCV 87.3 81.3 - 96.4 fL [facility] MCH 27.8 27.1 - 33.3 pg [facility] MCHC 31.9(L) 32.3 - 35.7 g/dL [facility] RDW CV 13.7 11.1 - 14.9 % [facility] RDW SD 43.8 35.7 - 48.1 fL [facility] NRBC abs 0.00 0.00 - 0.01 K/cumm [facility] Blood 11/06/2024 8:30 AM BOOK CUTTER 11/06/2024 8:30 AM BOOK CUTTER Maisha Mabry MD LAB BLOOD ORDERABLES Fin al Result [place] [address] [facility] [place] [address] * Surgical pathology (11/06/2024 8:23 AM BOOK CUTTER) Peripheral Blood For Pathologist Review 11/06/2024 8:23 AM BOOK CUTTER 11/06/2024 10:06 AM BOOK CUTTER Narrative 11/08/2024 4:03 PM BOOK CUTTER [place] [address] [place], [place] [address] Tele: Lety Garcia MD - Food Beverage Manager FLOW CYTOMETRY REPORT Note to Patients: This [...] the details. Patient Name: FRANCES WILDER Address: [place] [address] Gender: F : 1945 (Age: 79) Service: Location: N : [id number] [facility] #: [id number] Patient Type: MBC INFUSION SERIES Taken: 11/06/2024 [...] CD123, HLA-DR, CD200, T-cell receptor gamma delta, [place]-Lyndora, and Lambda. Clerical Data Follows [id number] REPORT IMAGES AND/OR SCANNED DOCUMENTS ONLY VIEWABLE IN PDF FORMAT The flow cytometry study included in this report is developed and its performance characteristics determined by [facility] Pathology Department and/or [facility]. It has not been cleared or approved by the U.S Food and Drug Administration (FDA) and FDA has determined that such clearance or approval is not necessary. This test is used for clinical purpose and it should not be regarded as investigational or for research. [facility] and/or [facility] is certified under the Clinical Laboratory Amendment of 1988 (CLIA) as qualified to perform high complex testing Maisha Mabry MD LAB PATHOLOGY ORDERABLES Final Result * PET/CT FDG Skull to Thigh (11/04/2024 10:17 AM BOOK CUTTER) Anatomical Region Laterality Modality N/A Positron Emissio n Tomography (PET) 11/04/2024 11:5 5 AM BOOK CUTTER Impressions 11/04/2024 12:03 PM BOOK CUTTER 1. No FDG avid lymphadenopathy above or [...] by: DO Checo Lezama 11/04/2024 12:03 PM BOOK CUTTER EXAMINATION: TUMOR FDG-PET/CT IMAGING DATE OF STUDY: 11/04/2024 SCANNER: [facility] RADIOPHARMACEUTICAL: 18.0 mCi F-18 Fluorodeoxyglucose (FDG) [...] obtained. The study was interpreted on the [employer] workstation. The mean liver SUV (reported for quality improvement analyst purposes) is 3.8. The total scanned area [...] FDG-PET/CT IMAGING DATE OF STUDY: 11/04/2024 SCANNER: [facility] RADIOPHARMACEUTICAL: 18.0 mCi F-18 Fluorodeoxyglucose (FDG) [...] obtained. The study was interpreted on the [employer] workstation. The mean liver SUV (reported for quality improvement analyst purposes) is 3.8. The total scanned area [...] Result * POCT glucose (11/04/2024 8:49 AM BOOK CUTTER) Glucose, POC 76 70 - 199 mg/dL Comment: For Glucose values <35 mg/dl when Hematocrit is >60 mg/dl,the test may not accurately detect significant hypoglycemia,and testing in the Laboratory should be considered if clinically indicated. Blood 11/04/2024 8:49 AM BOOK CUTTER 11/04/2024 8:49 AM BOOK CUTTER Maisha Mabry MD LAB POCT ORDERABLES - DE VICE Final Result [facility] [address] [place] [address] from Last 3 Months Insurance [employer] MEDICARE [facility] MEDICARE [facility] MEDICARE Advance Directives For more information, please contact: [phone] * Full Code (Latest Code Status on File) Date Activated Date Inactivated Comments 05/21/2020 2:31 PM 05/22/2020 4:20 PM Care Teams Plant Ecologist Relationship Specialty Start Date End Date Bianca Boothe MD [address] [place] [address] PCP - General 06/26/14 Vincent Watts MD [address] [place] [address] Consulting Physician Radiation Oncology 11/22/18 Rose Marie Goyal MD [address] [address] Consulting Physician General Surgery 12/04/18 Huan Ureña MD [address] [id number] Consulting Physician General Surgery 05/21/20 Cara Silva NP [address] [id number] Nurse Practitioner Surgery 07/19/21 Maisha Mabry MD [address] [place], [place] [phone] Medical Oncologist/Hematologis t Hematology and Oncology 08/09/24
--- OUTSIDE RECORDS SUMMARY | 2025-01-23 14:47 | XMS_ITS ---
Author Organization [facility] D Address [address] [place] [address] Care Team Providers Care Supervisor Of Research Name Role Phone Bianca Boothe MD Primary Care Provider Vincent Watts MD Unavailable [phone] Rose Marie Goyal MD Unavailable [phone] Huan Ureña MD Unavailable [phone] Cara Silva NP Unavailable Maisha Mabry MD Unavailable [phone] Active Problems Problem Noted Date Diagnosed Date Coronary artery disease invo lving [place] coronary artery of [place] heart without angina pectoris 07/16/2021 Assessment & [...] (05/13/2020): Added automatically from request for surgery [id number] History of right breast cancer 11/22/2018 Cancer Staging:Pathologic stage from 12/31/2018:Stage 0(pTis (DCIS), cN0, cM0, ER+, [place]+, HER2: Not Assessed) - Signed by Cara [...]
--- OUTSIDE RECORDS SUMMARY | 2025-01-23 14:47 | XMS_ITS | Clinical Summary ---
Author Organization [facility] Address [address] [place] [address] Care Team Providers Care Call Center Recruiter Name Role Phone Bianca Boothe MD Primary Care Provider [phone] Social History Tobacco Use Types Packs/Day Years Used Date Smoking Tobacco: Never Assessed Comments Unknown Sex and Gender Information Value Date Recorded Sex Assigned at Not on file Legal Sex Female 5:57 PM SENIOR GAMEMASTER Gender Identity Not on file Sexual Orientation [...] to complete this topic Insurance MED REPLACE [facility] MEDICARE Care Teams Call Center Recruiter Relationship Specialty Start Date End Date Bianca Boothe MD PCP - General INTERNAL MEDICINE 02/13/20
--- OUTSIDE RECORDS SUMMARY | 2025-01-23 14:47 | XMS_ITS | Clinical Summary ---
Author Organization [facility] Address [address] [place] [address] Care Team Providers Care General Surgery Physician Assistant Name Role Phone Bianca Boothe MD Primary [...] Comments Blood Pressure 160/82 10/28/2022 10:12 AM DOOR PANELER Pulse 85 07/03/2018 11:31 AM CDT Temperature - - Respiratory Rate 16 07/03/2018 11:31 AM CDT Oxygen Saturation - - Inhaled Oxygen Concentration - - Weight 89.4 kg (197 lb) 10/28/2022 10:12 AM DOOR PANELER Height 167.6 cm (5' 6 ) 10/28/2022 10:12 AM DOOR PANELER Body Mass Index 31.8 10/28/2022 10:12 AM DOOR PANELER Plan of Treatment Health Maintenance Due Date [...] Maintenance Insurance [employer] PPO MCR Care Teams General Surgery Physician Assistant Relationship Specialty Start Date End Date Bianca Boothe MD [address] [place] [phone] PCP - General Internal Medicine 07/03/18
[2025-01-25 11:54] LABS: Ionized Calcium 5.8 mg/dL (4.7-5.5)
[2025-01-29 01:42] LABS: Parathyroid Intact 84 pg/mL (16-77)
== END 2025-01-23 14:22 | disposition home or self-care (01) ==
PROVIDERS: PCP Internal Medicine; Visit Provider Internal Medicine
DX: E83.52 Hypercalcemia (principal)
CPT/HCPCS: 36415; 82330; 83970

== ENCOUNTER 2025-02-03 07:57 | Outpatient (CLI) | payer MEDICARE, SELFPAY ==
--- NOTE | ~2025-02-03 | NM_ITS ---
EXAMINATION: NM parathyroid imaging w spect DATE: 02/03/2025 11:14 INDICATION: Hyperparathyroidism. Elevated calcium levels. TECHNIQUE: 36.2 mCi Tc99m tetrofosmin (Myoview) was administered by intravenous route. Anterior image s of the neck were obtained at 10 minutes and 2 hours. COMPARISON: None. FINDINGS/IMPRESSION: There is no focus of persistent activity in the area of the thyroid or mediastinum to suggest parathy roid adenoma. Reviewed, dictated and finalized at location A.
--- OUTSIDE RECORDS SUMMARY | 2025-02-03 08:03 | XMS_ITS | Clinical Summary ---
Author Organization [facility] Address [address] [place] [address] Care Team Providers Care Child Development Director Name Role Phone Bianca Boothe MD [...] Comments Blood Pressure 160/82 10/28/2022 10:12 AM COAT JOINER Pulse 85 07/03/2018 11:31 AM CDT Temperature - - Respiratory Rate 16 07/03/2018 11:31 AM CDT Oxygen Saturation - - Inhaled Oxygen Concentration - - Weight 89.4 kg (197 lb) 10/28/2022 10:12 AM COAT JOINER Height 167.6 cm (5' 6 ) 10/28/2022 10:12 AM COAT JOINER Body Mass Index 31.8 10/28/2022 10:12 AM COAT JOINER Plan of Treatment Health Maintenance Due Date [...] Maintenance Insurance [employer] PPO MCR Care Teams Child Development Director Relationship Specialty Start Date End Date Bianca Boothe MD [address] [place] [phone] PCP - General Internal Medicine 07/03/18
--- OUTSIDE RECORDS SUMMARY | 2025-02-03 08:03 | XMS_ITS | Clinical Summary ---
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 07/16/2021 Assessment & [...] (05/13/2020): Added automatically from request for surgery [id number] History of right breast cancer 11/22/2018 Cancer Staging:Pathologic stage from 12/31/2018:Stage 0(pTis (DCIS), cN0, cM0, ER+, OK+, HER2: Not Assessed) - Signed by Cara [...] Type Department Care Team Description 12/17/2024 Documentation [facility] [place] [address] Lynette Rivera RN 11/25/2024 10:34 AM MANUFACTURING QUALITY ENGINEER - 11/25/2024 11:59 PM MANUFACTURING QUALITY ENGINEER Hospital Encounter [facility] - Imaging [address] [place] [phone] Multiple thyroid nodules Discharge Disposition: Discharge to home or self care 11/14/2024 Orders Only [facility] [address] [place] [phone] Maisha Mabry MD Multiple thyroid nodules (Primary Dx) 11/13/2024 9:34 AM MANUFACTURING QUALITY ENGINEER - 11/13/2024 11:59 PM MANUFACTURING QUALITY ENGINEER Hospital Encounter [facility] - Imaging [address] [place] [phone] Thyroid nodule Discharge Disposition: Discharge to home or self care 11/06/2024 8:45 AM MANUFACTURING QUALITY ENGINEER Office Visit [facility] [address] [place] [phone] Maisha Mabry MD CLL (chronic lymphocytic leukemia) (HCC) (Primary Dx); Thyroid nodule 11/06/2024 8:30 AM MANUFACTURING QUALITY ENGINEER Lab [facility] Lab [address] [place] [phone] CLL (chronic lymphocytic leukemia) (HCC) 11/06/2024 Documentation [facility] [address] [place] [phone] Lynette Rivera RN from Last 3 Months Surgical History Surgery [...] on file Legal Sex Female 11:41 PM MANUFACTURING QUALITY ENGINEER Gender Identity Not on file Sexual Orientation Not on file Obstetrics History Last Filed Vital Signs Vital Sign Reading Time Taken Comments Blood Pressure 132/70 11/06/2024 8:37 AM MANUFACTURING QUALITY ENGINEER Pulse 71 11/06/2024 8:37 AM MANUFACTURING QUALITY ENGINEER Temperature 36.1 C (96.9 F) 11/06/2024 8:37 AM MANUFACTURING QUALITY ENGINEER Respiratory Rate 18 11/06/2024 8:37 AM MANUFACTURING QUALITY ENGINEER Oxygen Saturation 100% 11/06/2024 8:37 AM MANUFACTURING QUALITY ENGINEER Inhaled Oxygen Concentration - - Weight 86.1 kg (189 lb 12.8 oz) 11/06/2024 8:37 AM MANUFACTURING QUALITY ENGINEER Height 172.7 cm (5' 8 ) 10/03/2024 10:2 4 AM MANUFACTURING QUALITY ENGINEER Body Mass Index 28.86 10/03/2024 10:24 AM MANUFACTURING QUALITY ENGINEER Plan of Treatment Health Maintenance Due Date [...] MISC PATH REFER Routine 11/28/2024 12:18 PM MANUFACTURING QUALITY ENGINEER US GUIDED THYROID FINE NEEDLE ASPIRATION 1ST LESION Schedule Routine, Read Routine (OP Routine) 11/25/2024 1:07 PM MANUFACTURING QUALITY ENGINEER Multiple thyroid nodules CYTOLOGY Routine 11/25/2024 12:59 PM MANUFACTURING QUALITY ENGINEER Multiple thyroid nodules US THYROID Schedule Routine, Read Routine (OP Routine) 11/13/2024 10:25 AM MANUFACTURING QUALITY ENGINEER Thyroid nodule FLOW LEUKEMIA/LYMPHOMA Routine 8:30 AM MANUFACTURING QUALITY ENGINEER CLL (chronic lymphocytic leukemia) (HCC) DIFFERENTIAL AUTO Routine 11/06/2024 8:3 0 AM MANUFACTURING QUALITY ENGINEER CBC WITH AUTO DIFFERENTIAL Routine 11/06/2024 8:30 AM MANUFACTURING QUALITY ENGINEER IGVH MUTATION ANALYSIS BY PCR-GENPATH Routine 11/06/2024 8:30 AM MANUFACTURING QUALITY ENGINEER CLL (chronic lymphocytic leukemia) (HCC) CLL FISH CHRONIC LYMPHOCYTICLEUKEMIA Routine 11/06/2024 8:30 AM MANUFACTURING QUALITY ENGINEER CLL (chronic lymphocytic leukemia) (HCC) SURGICAL PATHOLOGY Routine 11/06/2024 8: 23 AM MANUFACTURING QUALITY ENGINEER from Last 3 Months Results * Misc Path Refer (11/28/2024 12:18 PM MANUFACTURING QUALITY ENGINEER) Desired Testing Afirma Performing Lab Veracyte [facility] Specimen Collected Date 11/25/2024 [facility] Path Result See scanned report [facility] Tissue 11/28/2024 12:1 8 PM MANUFACTURING QUALITY ENGINEER 11/28/2024 12:20 PM MANUFACTURING QUALITY ENGINEER us Maisha Mabry MD LAB BLOOD ORDERABLES Fin al Result [facility] [address] Department [place] [address] * US Guided Thyroid Fine Needle Aspiration 1st Lesion (11/25/2024 1:07 PM MANUFACTURING QUALITY ENGINEER) Anatomical Region Laterality Modality Thyroid N/A Ultrasound 11/25/2024 1:52 PM MANUFACTURING QUALITY ENGINEER Impressions 11/25/2024 1:52 PM MANUFACTURING QUALITY ENGINEER 1. Successful thyroid biopsy of the 1.2cm nodule in the isthmus 2. Successful thyroid biopsy of the 1.0cm nodule in the right mid thyroid Electronically signed by: ALICJA Herrera 11/25/2024 1:52 PM MANUFACTURING QUALITY ENGINEER EXAMINATION: ULTRASOUND-GUIDED THYROID FINE NEEDLE ASPIRATION HISTORY: [...] fine needle aspirates were handed to the dentures lab technician present during the procedure. Please refer to [...] fine needle aspirates were handed to the dentures lab technician present during the procedure. Please refer to [...] thyroid Electronically signed by: Kait Quiñones PA-C us Maisha Mabry MD IMG US PROCEDURES Final Result * Cytology (11/25/2024 12:59 PM MANUFACTURING QUALITY ENGINEER) Fluid (Thyroid Gland (Cytology)) 11/25/2024 1:00 PM MANUFACTURING QUALITY ENGINEER Narrative PATHOLOGY [facility] - 11/27/2024 2:38 PM MANUFACTURING QUALITY ENGINEER [place] [address] [address] Tele: Lety Garcia MD - Supervisor Audit Clerks Note to Patients: This report may contain [...] CYTOLOGY REPORT Patient Name: FRANCES WILDER Address: [place] [address] Gender: F : 1945 (Age: 79) Service: Location: N : [id number] Hospital #: [id number] Patient Type [facility] Taken: 11/25/2024 Reported: 11/27/2024 Physician(s): PABLITO Nick M.D. Rajneesh S. Jain, M.D. 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 ADDENDA: Addendum Comment This field contains a PDF document (see scanned image which follows report). If your system does not support PDF viewing, please refer to [facility] or the original report to view the [...] the cytospin preparations. Clerical Data Follows A; 30242, 73538` B; 53176, 64772` REPORT IMAGES AND/OR SCANNED DOCUMENTS ONLY VIEWABLE IN PDF FORMAT The immunohistochemical test(s) cited in this report, if any, was developed and its performance characteristics determined by [facility] Pathology Department. It has not been cleared or approved by the U.S. Food and Drug Administration. The FDA has determined that such clearance or approval is not necessary. This test is used for clinical purposes. It should not be regarded as investigational or for research. [facility] Laboratory is certified under the Clinical Laboratory Improvement Amendments of 1988 (CLIA) as qualified to perform high complexity testing. Immunostains were performed on formalin-fixed paraffin embedded tissue using a polymer diaminobenzidine chromogen detection system. Antibodies used may include clone 1D5 (mouse monoclonal, estrogen receptor), clone [id number] (mouse monoclonal progesterone receptor), MIB-1 (mouse monoclonal, Ki- 67), and CD117 (rabbit polyclonal, c-kit). In the event that immunohistochemistry or special stains have been performed, attending physician has confirmed appropriateness of controls. Frozen section, operating room consultation, gross examination and dissection, and case sign out may have been performed in part or completely in the following laboratories: [facility], [address] [facility], [place] [address] [facility], [address], [place] [address]. Maisha Mabry MD LAB CYTOLOGY ORDERABLES Final Result PATHOLOGY [facility] Laboratory Receiving [address] [place] [address] * US Thyroid (11/13/2024 10:25 AM MANUFACTURING QUALITY ENGINEER) Anatomical Region Laterality Modality Head and Neck N/A Ultrasound 11/13/2024 11:1 9 AM MANUFACTURING QUALITY ENGINEER Impressions 11/13/2024 11:19 AM MANUFACTURING QUALITY ENGINEER 1. Indeterminate TR 5 nodule in the [...] Kiel Farrell M.D. Narrative 11/13/2024 11:19 AM MANUFACTURING QUALITY ENGINEER Thyroid sonogram HISTORY:Thyroid nodule on PET study. [...] * Flow Leukemia/Lymphoma Blood (11/06/2024 8:30 AM MANUFACTURING QUALITY ENGINEER) [facility] Goel Stain Test Completed Comment:Testing performed by : [facility], [address] [place]., [address] Leukemia/Lymp andie Result See separate Surgical Pathology report. [facility] Comment:Testing performed by : [facility], [address] [place]., [address] Blood 11/06/2024 8:30 AM MANUFACTURING QUALITY ENGINEER 11/06/2024 11:45 AM MANUFACTURING QUALITY ENGINEER Result [facility] Maisha Mabry MD LAB PATHOLOGY ORDERABLES Final Result Performing Organization Address City/[facility]/ZIP Co de Phone Number [facility] [address] [place] [address] * CLL FISH chronic lymphocyticleukemia (11/06/2024 8:30 AM MANUFACTURING QUALITY ENGINEER) [facility] CLL FISH Chronic LymphocyticLeukemia Panel-GenPath See scanned report Blood 11/06/2024 8:30 AM MANUFACTURING QUALITY ENGINEER 11/06/2024 9:00 AM MANUFACTURING QUALITY ENGINEER Result [facility] Maisha Mabry MD LAB BLOOD ORDERABLES Fin al Result [facility] [address] [place] [address] * Differential, auto (11/06/2024 8:30 AM MANUFACTURING QUALITY ENGINEER) [facility] Neutrophil abs 3.9 1.5 - 6.5 K/cumm Imm gran abs 0.0 0.0 - 0.1 K/cumm [facility] Lymphocyte abs 3.3 0.8 - 3.3 K/cumm [facility] Monocyte abs 0.7 0.2 - 0.8 K/cumm [facility] Eosinophil abs 0.2 0.0 - 0.5 K/cumm [facility] Basophil abs 0.1 0.0 - 0.1 K/cumm [facility] Neutrophil pct 47.9 % [facility] Comment: Interpretive Data Percent cell count reference ranges are not reported, since discordance with absolute values may lead to misinterpretation of CBC data. Current Interpretive Data was last revised on 2018. Imm gran pct 0.2 % [facility] Comment: Interpretive Data Percent cell count reference ranges are not reported, since discordance with absolute values may lead to misinterpretation of CBC data. Current Interpretive Data was last revised on 2018. Lymphocyte pct 40.0 % [facility] Comment: Interpretive Data Percent cell count reference ranges are not reported, since discordance with absolute values may lead to misinterpretation of CBC data. Current Interpretive Data was last revised on 2018. Monocyte pct 8.6 % [facility] Comment: Interpretive Data Percent cell count reference ranges are not reported, since discordance with absolute values may lead to misinterpretation of CBC data. Current Interpretive Data was last revised on 2018. Eosinophil pct 2.3 % [facility] Comment: Interpretive Data Percent cell count reference ranges are not reported, since discordance with absolute values may lead to misinterpretation of CBC data. Current Interpretive Data was last revised on 2018. Basophil pct 1.0 % [facility] Comment: Interpretive Data Percent cell count reference ranges are not reported, since discordance with absolute values may lead to misinterpretation of CBC data. Current Interpretive Data was last revised on 2018. Blood 11/06/2024 8:30 AM MANUFACTURING QUALITY ENGINEER 11/06/2024 8:30 AM MANUFACTURING QUALITY ENGINEER us Maisha Mabry MD LAB BLOOD ORDERABLES Fin al Result [facility] [address] Department [place] [address] * IgVH Mutation Analysis by PCR-GenPath (11/06/2024 8:30 AM MANUFACTURING QUALITY ENGINEER) [facility] IgVH Mutation Analysis by PCR-GenPath See scanned report Blood 11/06/2024 8:30 AM MANUFACTURING QUALITY ENGINEER 11/06/2024 9:00 AM MANUFACTURING QUALITY ENGINEER Maisha Mabry MD LAB BLOOD ORDERABLES Fin al Result Performing Organization Address City/[facility]/ZIP Co de Phone Number [facility] [address] [place] [address] * (ABNORMAL) CBC with auto differential (11/06/2024 8:30 AM MANUFACTURING QUALITY ENGINEER) [facility] WBC 8.2 3.8 - 9.9 K/cumm Hgb 14.5 11.9 - 15.5 g/dL [facility] Hct 45.5 35.6 - 45.5 % [facility] Plt 167 150 - 400 K/cumm [facility] MPV 11.3 9.1 - 12.3 fL [facility] RBC 5.21(H) 3.90 - 5.20 M/cumm [facility] MCV 87.3 81.3 - 96.4 fL [facility] MCH 27.8 27.1 - 33.3 pg [facility] MCHC 31.9(L) 32.3 - 35.7 g/dL [facility] RDW CV 13.7 11.1 - 14.9 % [facility] RDW SD 43.8 35.7 - 48.1 fL [facility] NRBC abs 0.00 0.00 - 0.01 K/cumm [facility] Blood 11/06/2024 8:30 AM MANUFACTURING QUALITY ENGINEER 11/06/2024 8:30 AM MANUFACTURING QUALITY ENGINEER Maisha Mabry MD LAB BLOOD ORDERABLES Fin al Result Performing Organization Address City/[facility]/ZIP Co de Phone Number [facility] [address] [place] [address] * Surgical pathology (11/06/2024 8:23 AM MANUFACTURING QUALITY ENGINEER) Peripheral Blood For Pathologist Review 11/06/2024 8:23 AM MANUFACTURING QUALITY ENGINEER 11/06/2024 10:06 AM MANUFACTURING QUALITY ENGINEER Narrative 11/08/2024 4:03 PM MANUFACTURING QUALITY ENGINEER [address] [address] Tele: Lety Garcia MD - Supervisor Audit Clerks FLOW CYTOMETRY REPORT Note to Patients: This [...] the details. Patient Name: FRANCES WILDER Address: [place] [address] Gender: F : 1945 (Age: 79) Service: Location: Hospital #: [id number] Patient Type: MBC INFUSION SERIES Taken: 11/06/2024 [...] CD123, HLA-DR, CD200, T-cell receptor gamma delta, [place], and Lambda. Clerical Data Follows [id number] REPORT IMAGES AND/OR SCANNED DOCUMENTS ONLY VIEWABLE IN PDF FORMAT The flow cytometry study included in this report is developed and its performance characteristics determined by [facility] Pathology Department and/or [facility]. It has not been cleared or approved by the U.S Food and Drug Administration (FDA) and FDA has determined that such clearance or approval is not necessary. This test is used for clinical purpose and it should not be regarded as investigational or for research. [facility] and/or [facility] is certified under the Clinical Laboratory Amendment of 1988 (CLIA) as qualified to perform high complex testing Maisha Mabry MD LAB PATHOLOGY ORDERABLES Final Result from Last 3 Months Insurance MEDICARE Advance Directives For more information, please contact: [phone] * Full Code (Latest Code Status on File) Date Activated Date Inactivated Comments 05/21/2020 2:31 PM 05/22/2020 4:20 PM Care Teams Clearance Coordinator Relationship Specialty Start Date End Date Bianca Boothe MD [address] [place] [address] PCP - General 06/26/14 Vincent Watts MD [address] DEPT [place] [address] Consulting Physician Radiation Oncology 11/22/18 Rose Marie Goyal MD [address] [address] Consulting Physician General Surgery 12/04/18 Huan Ureña MD [address] [id number] Consulting Physician General Surgery 05/21/20 Cara Silva, JARED [address] [id number] Nurse Practitioner Surgery 07/19/21 Maisha Mabry MD [address] [place] [address] Medical Oncologist/Hematologis t Hematology and Oncology 08/09/24
--- OUTSIDE RECORDS SUMMARY | 2025-02-03 08:03 | XMS_ITS ---
Author Organization [facility] D Address [address] [place] [address] Care Team Providers Care Platform Material Handling Supervisor Name Role Phone Bianca Boothe MD Primary Care Provider [phone] Vincent Watts MD Unavailable [phone] Rose Marie Goyal MD Unavailable [phone] Huan Ureña MD Unavailable [phone] Cara Silva NP Unavailable Maisha Mabry MD Unavailable Active Problems Problem Noted Date Diagnosed Date Coronary artery disease invo lving osage coronary artery of osage heart without angina pectoris 07/16/2021 Assessment & [...] (05/13/2020): Added automatically from request for surgery [id number] History of right breast cancer 11/22/2018 Cancer Staging:Pathologic stage from 12/31/2018:Stage 0(pTis (DCIS), cN0, cM0, ER+, VT+, HER2: Not Assessed) - Signed by Cara [...]
--- OUTSIDE RECORDS SUMMARY | 2025-02-03 08:03 | XMS_ITS | Clinical Summary ---
Author Organization [facility] Address [address] [place] [address] Care Team Providers Care Instructional Coach Name Role Phone Bianca Boothe MD Primary Care Provider [phone] Social History Tobacco Use Types Packs/Day Years Used Date Smoking Tobacco: Never Assessed Comments Unknown Sex and Gender Information Value Date Recorded Sex Assigned at Not on file Legal Sex Female 5:57 PM K 9 HANDLER/ DEPUTY Gender Identity Not on file Sexual Orientation Not on file Plan of Treatment Health Maintenance Due Date Last Done Comments DTaP, Tdap and Td Vaccines ( 1 - Tdap) 1963 Zoster Vaccines (1 of 2) 1994 Annual Medicare Wellness Visit 2009 Dexa Scan (General) 2009 Pneumococcal Vaccine: 50+ Ye ars (2 of 2 - PPSV23 [...] to complete this topic Insurance MED REPLACE [facility] MEDICARE Care Teams Instructional Coach Relationship Specialty Start Date End Date Bianca Boothe MD PCP - General INTERNAL MEDICINE 02/13/20
--- OUTSIDE RECORDS SUMMARY | 2025-02-03 08:03 | XMS_ITS | Referral Summary ---
Author Organization [facility] Building D Address [address] [place] [address] Care Team Providers Care Natural Sciences Manager Name Role Phone Bianca Boothe MD Primary Care Provider [phone] Vincent Watts MD Unavailable Rose Marie Goyal MD Unavailable Huan Ureña MD Unavailable [phone] Cara Silva NP Unavailable Maisha Mabry MD Unavailable [phone] Encounters Date Type Department Care Team Description 12/17/2024 Documentation [facility] [address] [place] [phone] Lynette Rivera RN 11/25/2024 10:34 AM FINANCIAL MANAGEMENT - 11/25/2024 11:59 PM FINANCIAL MANAGEMENT Hospital Encounter [facility] [address] [place] [phone] Multiple thyroid nodules Discharge Disposition: Discharge to home or self care 11/14/2024 Orders Only [facility] [address] [place] [phone] Maisha Mabry MD Multiple thyroid nodules (Primary Dx) 11/13/2024 9:34 AM FINANCIAL MANAGEMENT - 11/13/2024 11:59 PM FINANCIAL MANAGEMENT Hospital Encounter [facility] [address] [place] [phone] Thyroid nodule Discharge Disposition: Discharge to home or self care 11/06/2024 Documentation [facility] [address] [place] [phone] Lynette Rivera RN 11/06/2024 8:30 AM FINANCIAL MANAGEMENT Lab [facility] [address] [place] [phone] CLL (chronic lymphocytic leukemia) (FORMERLY [facility]) 11/06/2024 8:45 AM FINANCIAL MANAGEMENT Office Visit [facility] [address] [place] [phone] Maisha Mabry MD CLL (chronic lymphocytic leukemia) (FORMER[facility]) (Primary Dx); Thyroid nodule from Last 3 Months Allergies Active Allergy [...] Diagnosed Date Coronary artery disease invo lving [place] coronary artery of [place] heart without angina pectoris 07/16/2021 Assessment & [...] (05/13/2020): Added automatically from request for surgery [id number] History of right breast cancer 11/22/2018 Cancer Staging:Pathologic stage from 12/31/2018:Stage 0(pTis (DCIS), cN0, cM0, ER+, OH+, HER2: Not Assessed) - Signed by Cara [...] on file Legal Sex Female 11:41 PM FINANCIAL MANAGEMENT Gender Identity Not on file Sexual Orientation Not on file Last Filed Vital Signs Vital Sign Reading Time Taken Comments Blood Pressure 132/70 11/06/2024 8:37 AM FINANCIAL MANAGEMENT Pulse 71 11/06/2024 8:37 AM FINANCIAL MANAGEMENT Temperature 36.1 C (96.9 F) 11/06/2024 8:37 AM FINANCIAL MANAGEMENT Respiratory Rate 18 11/06/2024 8:37 AM FINANCIAL MANAGEMENT Oxygen Saturation 100% 11/06/2024 8:37 AM FINANCIAL MANAGEMENT Inhaled Oxygen Concentration - - Weight 86.1 kg (189 lb 12.8 oz) 11/06/2024 8:37 AM FINANCIAL MANAGEMENT Height 172.7 cm (5' 8 ) 10/03/2024 10:2 4 AM FINANCIAL MANAGEMENT Body Mass Index 28.86 10/03/2024 10:24 AM FINANCIAL MANAGEMENT Plan of Treatment Not on file Procedures Procedure Name Priority Date/Time Associated Diagnosis Comments MISC PATH REFER Routine 11/28/2024 12:18 PM FINANCIAL MANAGEMENT US GUIDED THYROID FINE NEEDLE ASPIRATION 1ST LESION Schedule Routine, Read Routine (OP Routine) 11/25/2024 1:07 PM FINANCIAL MANAGEMENT Multiple thyroid nodules CYTOLOGY Routine 11/25/2024 12:59 PM FINANCIAL MANAGEMENT Multiple thyroid nodules US THYROID Schedule Routine, Read Routine (OP Routine) 11/13/2024 10:25 AM FINANCIAL MANAGEMENT Thyroid nodule FLOW LEUKEMIA/LYMPHOMA Routine 8:30 AM FINANCIAL MANAGEMENT CLL (chronic lymphocytic leukemia) (HCC) DIFFERENTIAL AUTO Routine 11/06/2024 8:3 0 AM FINANCIAL MANAGEMENT CBC WITH AUTO DIFFERENTIAL Routine 11/06/2024 8:30 AM FINANCIAL MANAGEMENT IGVH MUTATION ANALYSIS BY PCR-GENPATH Routine 11/06/2024 8:30 AM FINANCIAL MANAGEMENT CLL (chronic lymphocytic leukemia) (HCC) CLL FISH CHRONIC LYMPHOCYTICLEUKEMIA Routine 11/06/2024 8:30 AM FINANCIAL MANAGEMENT CLL (chronic lymphocytic leukemia) (HCC) SURGICAL PATHOLOGY Routine 11/06/2024 8: 23 AM FINANCIAL MANAGEMENT from Last 3 Months Results * Misc Path Refer (11/28/2024 12:18 PM FINANCIAL MANAGEMENT) Desired Testing Afirma Performing Lab [facility] Specimen Collected Date 11/25/2024 [facility] Path Result See scanned report [facility] Tissue 11/28/2024 12:1 8 PM FINANCIAL MANAGEMENT 11/28/2024 12:20 PM FINANCIAL MANAGEMENT us Maisha Mabry MD LAB BLOOD ORDERABLES Fin al Result [facility] [address] [place] [address] * US Guided Thyroid Fine Needle Aspiration 1st Lesion (11/25/2024 1:07 PM FINANCIAL MANAGEMENT) Anatomical Region Laterality Modality Thyroid N/A Ultrasound 11/25/2024 1:52 PM FINANCIAL MANAGEMENT Impressions 11/25/2024 1:52 PM FINANCIAL MANAGEMENT 1. Successful thyroid biopsy of the 1.2cm nodule in the isthmus 2. Successful thyroid biopsy of the 1.0cm nodule in the right mid thyroid Electronically signed by: Kait Quiñones PA-C Narrative 11/25/2024 1:52 PM FINANCIAL MANAGEMENT EXAMINATION: ULTRASOUND-GUIDED THYROID FINE NEEDLE ASPIRATION HISTORY: [...] fine needle aspirates were handed to the open hearth furnace laborer present during the procedure. Please refer to [...] fine needle aspirates were handed to the open hearth furnace laborer present during the procedure. Please refer to [...] by: Kait Quiñones PA-C Maisha Mabry MD [facility] US PROCEDURES Final Result * Cytology (11/25/2024 12:59 PM FINANCIAL MANAGEMENT) Fluid (Thyroid Gland (Cytology)) 11/25/2024 1:00 PM FINANCIAL MANAGEMENT Narrative PATHOLOGY [facility] - 11/27/2024 2:38 PM FINANCIAL MANAGEMENT [address] [address] Tele: Lety Garcia MD - Relations Coordinator Note to Patients: This report may [...] CYTOLOGY REPORT Patient Name: FRANCES WILDER Address: [place] [address] Gender: F : 1945 (Age: 79) Service: Location: Hospital #: [id number] Patient [place] [facility] [place] Taken: 11/25/2024 Reported: 11/27/2024 Physician(s): PABLITO Nick M.D. Rajneesh S. Jain, M.D. 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 ADDENDA: Addendum Comment This field contains a PDF document (see scanned image which follows report). If your system does not support PDF viewing, please refer to [facility] or the original report to view [...] in CytoRich Red in a container labeled Michele, Frances L and Right thyroid mid are [...] the cytospin preparations. Clerical Data Follows A; 87762, 81692` B; 92405, 58609` REPORT IMAGES AND/OR SCANNED DOCUMENTS ONLY VIEWABLE IN PDF FORMAT The immunohistochemical test(s) cited in this report, if any, was developed and its performance characteristics determined by [facility]. It has not been cleared or approved by the U.S. Food and Drug Administration. The FDA has determined that such clearance or approval is not necessary. This test is used for clinical purposes. It should not be regarded as investigational or for research. [facility] is certified under the Clinical Laboratory Improvement Amendments of 1988 (CLIA) as qualified to perform high complexity testing. Immunostains were performed on formalin-fixed paraffin embedded tissue using a polymer diaminobenzidine chromogen detection system. Antibodies used may include clone 1D5 (mouse monoclonal, estrogen receptor), clone [id number] (mouse monoclonal progesterone receptor), MIB-1 (mouse monoclonal, Ki- 67), and CD117 (rabbit polyclonal, c-kit). In the event that immunohistochemistry or special stains have been performed, attending physician has confirmed appropriateness of controls. Frozen section, operating room consultation, gross examination and dissection, and case sign out may have been performed in part or completely in the following laboratories: [facility], [address] [place] [address], [address] [place] [address]. Maisha Mabry MD LAB CYTOLOGY ORDERABLES Final Result Performing Organization Address City/State/[facility] Co de Phone Number PATHOLOGY [facility] Laboratory Receiving [address] [place] [address] * US Thyroid (11/13/2024 10:25 AM FINANCIAL MANAGEMENT) Anatomical Region Laterality Modality Head and Neck N/A Ultrasound 11/13/2024 11:1 9 AM FINANCIAL MANAGEMENT Impressions 11/13/2024 11:19 AM FINANCIAL MANAGEMENT 1. Indeterminate TR 5 nodule in the [...] Kiel Farrell M.D. Narrative 11/13/2024 11:19 AM FINANCIAL MANAGEMENT Thyroid sonogram HISTORY:Thyroid nodule on PET study. [...] * Flow Leukemia/Lymphoma Blood (11/06/2024 8:30 AM FINANCIAL MANAGEMENT) Pathologist [facility] Goel Stain Test Completed Comment:Testing performed by : [facility], [address] [place]., [address] Leukemia/Lymp andie Result See separate Surgical Pathology report. [facility] Comment:Testing performed by : [facility], [address] [place]., [address] Blood 11/06/2024 8:30 AM FINANCIAL MANAGEMENT 11/06/2024 11:45 AM FINANCIAL MANAGEMENT Maisha Mabry MD LAB PATHOLOGY ORDERABLES Final Result [facility] [address] [place] [address] * CLL FISH chronic lymphocyticleukemia (11/06/2024 8:30 AM FINANCIAL MANAGEMENT) CLL FISH Chronic LymphocyticLeukemia Panel-GenPath See scanned report Blood 11/06/2024 8:30 AM FINANCIAL MANAGEMENT 11/06/2024 9:00 AM FINANCIAL MANAGEMENT Maisha Mabry MD LAB BLOOD ORDERABLES Fin al Result [facility] [address] [place] [address] * Differential, auto (11/06/2024 8:30 AM FINANCIAL MANAGEMENT) [facility] Neutrophil abs 3.9 1.5 - 6.5 K/cumm Imm gran abs 0.0 0.0 - 0.1 K/cumm [facility] Lymphocyte abs 3.3 0.8 - 3.3 K/cumm [facility] Monocyte abs 0.7 0.2 - 0.8 K/cumm [facility] Eosinophil abs 0.2 0.0 - 0.5 K/cumm [facility] Basophil abs 0.1 0.0 - 0.1 K/cumm [facility] Neutrophil pct 47.9 % [facility] Comment: Interpretive Data Percent cell count reference ranges are not reported, since discordance with absolute values may lead to misinterpretation of CBC data. Current Interpretive Data was last revised on 2018. Imm gran pct 0.2 % [facility] Comment: Interpretive Data Percent cell count reference ranges are not reported, since discordance with absolute values may lead to misinterpretation of CBC data. Current Interpretive Data was last revised on 2018. Lymphocyte pct 40.0 % [facility] Comment: Interpretive Data Percent cell count reference ranges are not reported, since discordance with absolute values may lead to misinterpretation of CBC data. Current Interpretive Data was last revised on 2018. Monocyte pct 8.6 % [facility] Comment: Interpretive Data Percent cell count reference ranges are not reported, since discordance with absolute values may lead to misinterpretation of CBC data. Current Interpretive Data was last revised on 2018. Eosinophil pct 2.3 % [facility] Comment: Interpretive Data Percent cell count reference ranges are not reported, since discordance with absolute values may lead to misinterpretation of CBC data. Current Interpretive Data was last revised on 2018. Basophil pct 1.0 % [facility] Comment: Interpretive Data Percent cell count reference ranges are not reported, since discordance with absolute values may lead to misinterpretation of CBC data. Current Interpretive Data was last revised on 2018. Blood 11/06/2024 8:30 AM FINANCIAL MANAGEMENT 11/06/2024 8:30 AM FINANCIAL MANAGEMENT Maisha Mabry MD LAB BLOOD ORDERABLES Fin al Result Performing Organization Address City/[facility]/ZIP Co de Phone Number [facility] [address] Department of [employer] [place], [place] [id number] * IgVH Mutation Analysis by PCR-GenPath (11/06/2024 8:30 AM FINANCIAL MANAGEMENT) [facility] IgVH Mutation Analysis by PCR-GenPath See scanned report Blood 11/06/2024 8:30 AM FINANCIAL MANAGEMENT 11/06/2024 9:00 AM FINANCIAL MANAGEMENT Maisha Mabry MD LAB BLOOD ORDERABLES Fin al Result Performing Organization Address City/[facility] Co de Phone Number [facility] [address] [place] [address] * (ABNORMAL) CBC with auto differential (11/06/2024 8:30 AM FINANCIAL MANAGEMENT) Pathologist [facility] WBC 8.2 3.8 - 9.9 K/cumm Hgb 14.5 11.9 - 15.5 g/dL [facility] Hct 45.5 35.6 - 45.5 % [facility] Plt 167 150 - 400 K/cumm [facility] MPV 11.3 9.1 - 12.3 fL [facility] RBC 5.21(H) 3.90 - 5.20 M/cumm [facility] MCV 87.3 81.3 - 96.4 fL [facility] MCH 27.8 27.1 - 33.3 pg [facility] MCHC 31.9(L) 32.3 - 35.7 g/dL [facility] RDW CV 13.7 11.1 - 14.9 % [facility] RDW SD 43.8 35.7 - 48.1 fL [facility] NRBC abs 0.00 0.00 - 0.01 K/cumm [facility] Blood 11/06/2024 8:30 AM FINANCIAL MANAGEMENT 11/06/2024 8:30 AM FINANCIAL MANAGEMENT Maisha Mabry MD LAB BLOOD ORDERABLES Fin al Result [facility] [address] [place] [address] * Surgical pathology (11/06/2024 8:23 AM FINANCIAL MANAGEMENT) Peripheral Blood For Pathologist Review 11/06/2024 8:23 AM FINANCIAL MANAGEMENT 11/06/2024 10:06 AM FINANCIAL MANAGEMENT Narrative 11/08/2024 4:03 PM FINANCIAL MANAGEMENT [place] [address] [place], [place] [address] Tele: Lety Garcia MD - Relations Coordinator FLOW CYTOMETRY REPORT Note to Patients: [...] the details. Patient Name: FRANCES WILDER Address: [place] [address] Gender: F : 1945 (Age: 79) Service: Location: [facility] #: [id number] Patient Type: MBC INFUSION SERIES Taken: 11/06/2024 [...] CD123, HLA-DR, CD200, T-cell receptor gamma delta, Leonardo, and Lambda. Clerical Data Follows [id number] REPORT IMAGES AND/OR SCANNED DOCUMENTS ONLY VIEWABLE IN PDF FORMAT The flow cytometry study included in this report is developed and its performance characteristics determined by [facility] Pathology Department and/or [facility]. It has not been cleared or approved by the U.S Food and Drug Administration (FDA) and FDA has determined that such clearance or approval is not necessary. This test is used for clinical purpose and it should not be regarded as investigational or for research. [facility] and/or [facility] is certified under the Clinical Laboratory Amendment of 1988 (CLIA) as qualified to perform high complex testing Maisha Mabry MD LAB PATHOLOGY ORDERABLES Final Result from Last 3 Months Insurance [facility] MEDICARE T MEDICARE AET[employer] MEDICARE Advance Directives For more information, please contact: [phone] * Full Code (Latest Code Status on File) Date Activated Date Inactivated Comments 05/21/2020 2:31 PM 05/22/2020 4:20 PM Care Teams Natural Sciences Manager Relationship Specialty Start Date End Date Bianca Boothe MD [address] [place] [address] PCP - General 06/26/14 Vincent Watts MD [address] DEPT RADIATION ONCOLOGY [place], [place] [phone] Consulting Physician Radiation Oncology 11/22/18 Rose Marie Goyal MD [address] [facility] [address] [place] [phone] Consulting Physician General Surgery 12/04/18 Huan Ureña MD [address] [facility] [address] [place] [address] Consulting Physician General Surgery 05/21/20 Cara Silva NP [address] [facility] [address] [place] [address] Nurse Practitioner Surgery 07/19/21 Maisha Mabry MD [address] [place], [place] [phone] Medical Oncologist/Hematologis t Hematology and Oncology 08/09/24
== END 2025-02-03 07:58 | disposition home or self-care (01) ==
LOC: CHSIMG 07:58
PROVIDERS: PCP Internal Medicine; Visit Provider Internal Medicine
DX: E21.3 Hyperparathyroidism, unspecified (principal)
CPT/HCPCS: 78071; A9500

== ENCOUNTER 2025-09-30 10:41 | Outpatient (CLI) | payer MEDICARE, SELFPAY ==
--- NOTE | ~2025-09-30 | XR_ITS ---
EXAMINATION: XR chest 2V DATE: 09/30/2025 11:02 INDICATION: Acute upper respiratory tract infection TECHNIQUE: PA and lateral views of the chest were obtained. COMPARISON: Chest radiograph dated 12/08/2023 FINDINGS: Calcified nodule right lower lung zone consistent with old granulomatous disease. Nipple shadow projects over the left hemidiaphragm. No other airspace opacities, pulmonary edema, pleural effusion or pneumothorax. The cardiomediastinal silhouette is normal. Few small surgical clips at the right breast. IMPRESSION: 1. No acute cardiopulmonary disease. Reviewed, dictated and finalized at location A. OLOGY INTERVENTIONAL PHYSICIAN
[2025-09-30 10:54] LABS: Hematocrit 44.5 % (35.0-42.0); Hemoglobin 14.0 g/dL (11.7-13.8); Mean Corpuscular HGB Conc 31.5 g/dL (32-36); Mean Corpuscular Hemoglobin 27.6 pg (27.0-31.0); Mean Corpuscular Volume 87.6 fL (78.0-102.0); Platelet Count Result 151 K/mm3 (150-420); Red Blood Count 5.08 M/mm3 (4.20-5.40); White Blood Count 13.1 K/mm3 (4.8-10.8)
[2025-09-30 11:19] LABS: Strep Group A RT-PCR NOT DETECTED (Negative)
[2025-09-30 11:31] LABS: Influenza A QL RT-PCR Negative (Negative); Influenza B QL RT-PCR Negative (Negative); RSV RNA, RT-PCR Negative (Negative); SARS-CoV-2 RNA PCR Negative (Negative)
== END 2025-09-30 10:42 | disposition home or self-care (01) ==
LOC: CHSLAB 10:42
PROVIDERS: PCP Internal Medicine; Visit Provider Internal Medicine
DX: J06.9 Acute upper respiratory infection, unspecified (principal)
CPT/HCPCS: 36415; 71046; 85027; 87637; 87651

== ENCOUNTER 2025-10-11 12:07 | Emergency (ER) | payer MEDICARE, SELFPAY ==
--- NOTE | ~2025-10-11 | CT_ITS ---
EXAMINATION: CT abdomen pelvis wo con DATE: 10/11/2025 16:02 INDICATION: 80-year-old with diarrhea for 3 days. TECHNIQUE: Computed tomography (CT) of the abdomen and pelvis was performed without intravenous contrast. Automated exposure control and iterative reconstruction technique were employed. The dose-length product was 466.13 mGy-cm. COMPARISON: Ultrasound abdomen 04/10/2020. CT dated 04/10/2020. FINDINGS: Lung bases do not show acute findings. Stable 3 cm cyst of the right lobe of the liver as well as 2 cm cyst of lower right lobe. Gallbladder is absent. Pancreas and kidneys do not show acute findings. No evidence of small bowel obstruction or ileus. No mucosal inflammation of the colon. Mild fecal impaction of the cecum. No free air in the peritoneal cavity. Calcific atherosclerotic changes at the origin of renal arteries. Degenerative disc disease and spondylolisthesis at L4-5 and L5-S1 levels. IMPRESSION: 1. Limited noncontrast examination is not optimal to evaluate solid viscera, neoplasms and vascular structures. 2. Stable benign cystic lesions of the liver. Mild hepatomegaly and splenomegaly. 3. Atherosclerotic changes of origin of renal arteries. 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 Reviewed, dictated and finalized at location T. [facility] WELDER IMPRESSION: 1. Limited noncontrast examination is not optimal to evaluate solid viscera, ne oplasms and vascular structures. 2. Stable benign cystic lesions of the liver. Mild hepatomegaly and splenomegal y. 3. Atherosclerotic changes of origin of renal arteries. Degenerative disc disea se and spondylolisthesis of lumbar spine.
--- OUTSIDE RECORDS SUMMARY | 2025-10-11 12:09 | XMS_ITS ---
Author Organization [facility] D Address [address] [place] [address] Care Team Providers Care Physician Support Coordinator Name Role Phone Bianca Boothe MD Primary Care Provider Vincent Watts MD Unavailable [phone] Rose Marie Goyal MD Unavailable Huan Ureña MD Unavailable [phone] Cara Silva NP Unavailable [phone] Maisha Mabry MD Unavailable [phone] Active Problems Problem Noted Date Diagnosed Date Coronary artery disease invo lving [place] coronary artery of [place] heart without angina pectoris 07/16/2021 Assessment & [...] (05/13/2020): Added automatically from request for surgery [id number] History of right breast cancer 11/22/2018 Cancer Staging:Pathologic stage from 12/31/2018:Stage 0(pTis (DCIS), cN0, cM0, ER+, PA+, HER2: Not Assessed) - Signed by Cara [...]
--- OUTSIDE RECORDS SUMMARY | 2025-10-11 12:09 | XMS_ITS | Clinical Summary ---
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 Gender Identity Not on file Sexual Orientation Not on file Plan of Treatment Health Maintenance Due Date Last Done Comments DTaP, Tdap and Td Vaccines ( 1 - Tdap) 1963 Zoster Vaccines (1 of 2) 1994 Annual Medicare Wellness Visit 2009 Dexa Scan (General) 2009 Pneumococcal Vaccine: 50+ Ye ars (2 of 2 - PCV20 or PCV21) 09/22/2016 09/22/2015 RSV Immunization or 60+ Years (1 - 1-dose 75+ series) 2019 COVID-19 Vaccine (1 - 2024-2 6 season) 2025 Influenza Adult (#1) 2025 08/09/2013 Hepatitis A Vaccines Aged Out No long er eligible based on patient's age to complete this topic Meningococcal B Vaccine Aged Out No l onger eligible based on patient's age to complete this topic Meningococcal Vaccine Aged Out No ayan corry eligible based on patient's age to complete this topic RSV Immunizations Under 20 Months Aged Out No longer eligible based on patient's age to complete this topic Insurance MED [facility] MEDICARE Care Teams Surfacer Operator Relationship Specialty Start Date End Date Bianca Boothe MD PCP - General INTERNAL MEDICINE 02/13/20
--- OUTSIDE RECORDS SUMMARY | 2025-10-11 12:09 | XMS_ITS | Clinical Summary ---
Author Organization [facility] Address [address] [place] [address] Care Team Providers Care Logistics Planning Engineer Name Role Phone Bianca Boothe MD Primary [...] Comments Blood Pressure 160/82 10/28/2022 10:12 AM CIGARETTE PACKING MACHINE OPERATOR Pulse 85 07/03/2018 11:31 AM CDT Temperature - - Respiratory Rate 16 07/03/2018 11:31 AM CDT Oxygen Saturation - - Inhaled Oxygen Concentration - - Weight 89.4 kg (197 lb) 10/28/2022 10:12 AM CIGARETTE PACKING MACHINE OPERATOR Height 167.6 cm (5' 6) 10/28/2022 10:12 AM CIGARETTE PACKING MACHINE OPERATOR Body Mass Index 31.8 10/28/2022 10:12 AM CIGARETTE PACKING MACHINE OPERATOR Plan of Treatment Health Maintenance Due Date Last Done Comments DTAP/TDAP/TD VACCINES (1 - Tdap) 1964 PNEUMOCOCCAL VACCINE 50+ YEARS (1 of 1 - PCV) 06/13/19 94 ZOSTER VACCINE (1 of 2) 1994 OSTEOPOROSIS SCREENING 01/16/2019 01/16/2014 RSV VACCINE (60+ or ) (1 - 1-dose 75+ series) 2019 INFLUENZA VACCINE (#1) 2025 Procedures Procedure Name Priority Date/Time Associated Diagnosis [...] Maintenance Insurance [employer] PPO MCR Care Teams Logistics Planning Engineer Relationship Specialty Start Date End Date Bianca Boothe MD [address] [place] [address] PCP - General Internal Medicine 07/03/18
--- OUTSIDE RECORDS SUMMARY | 2025-10-11 12:09 | XMS_ITS | Clinical Summary ---
Author Organization [facility] D Address [address] [place] [address] Care Team Providers Care Production Dispatcher Name Role Phone Bianca Boothe MD Primary Care Provider Vincent Watts MD Unavailable [phone] Rose Marie Goyal MD Unavailable Huan Ureña MD Unavailable [phone] Cara Silva NP Unavailable Maisha Mabry MD Unavailable [phone] Allergies Active Allergy Reactions Criticality Noted Date [...] (20 mg total) by mouth daily Active NON FORMULARY, FOR CLINIC ADMINISTERED MEDICATIONS ONLY, (not in database) Take 1 each by mouth 2 (two) times a day NERVE RECOVERY MAX Active gabapentin (NEURONTIN) 300 mg capsuleIndications: Peripheral polyneuropathy Take 1 capsule (300 mg total) by mouth nightly 30 capsule 2 5 Active Active Problems Problem Noted Date Diagnosed Date Coronary artery disease invo lving [place] coronary artery of [place] heart without angina pectoris 07/16/2021 Assessment & [...] (05/13/2020): Added automatically from request for surgery [id number] History of right breast cancer 11/22/2018 Cancer Staging:Pathologic stage from 12/31/2018:Stage 0(pTis (DCIS), cN0, cM0, ER+, [place]+, HER2: Not Assessed) - Signed by Cara [...] change in her excellent medical regimen today. Surgical History Surgery Date Site/Laterality Comments TONSILLECTOMY [...] drink = 0.6 oz pur e alcohol) AUDIT-C Answer Date Recorded Q1: How often do you have a drink containing alc ohol? 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 Gender Identity Not on file Sexual Orientation Not on file Last Filed Vital Signs Vital Sign Reading Time Taken Comments Blood Pressure 118/70 06/16/2025 10:36 AM CDT Pulse 65 06/16/2025 10:36 AM CDT Temperature 36.7 C (98.1 F) 05/07/2025 11:48 AM CDT Respiratory Rate 18 05/07/2025 11:48 AM CDT Oxygen Saturation 97% 06/16/2025 10:36 AM CDT Inhaled Oxygen Concentration - - Weight 87.5 kg (193 lb) 06/16/2025 10:36 AM CDT Height 172.7 cm (5' 8) 06/16/2025 10:36 AM CDT Body Mass Index 29.35 06/16/2025 10:36 AM CDT Plan of Treatment Health Maintenance Due Date Last Done Comments Depression Screening 1944 Hepatitis B Screening 1962 Zoster Vaccine (1 of 2) 1963 Well Visit 65+ 2009 Osteoporosis Screening-Bone Density Scan 01/17/2016 01/16/2014, 01/16/2014 Fall Risk Assessment 05/21/2021 05/21/2020 Influenza Vaccine (#1) 2025 9, 08/27/2018, 07/23/2018, Additional history exists DTaP/Tdap/Td Vaccine (2 - Td or Tdap) 12/08/2028 12/08/2018 Pneumococcal vaccine 65+ Completed 07/23/2018, 12/10/2014 Insurance [facility] MEDICARE [facility] MEDICARE [employer] MEDICARE Advance Directives For more information, please contact: [phone] * Full Code (Latest Code Status on File) Date Activated Date Inactivated Comments 05/21/2020 2:31 PM 05/22/2020 4:20 PM Care Teams Production Dispatcher Relationship Specialty Start Date End Date Bianca Boothe MD [address] [place] [address] PCP - General 06/26/14 Vincent Watts MD [address] DEPT RADIATION ONCOLOGY [place], [place] [id number] Consulting Physician Radiation Oncology 11/22/18 Rose Marie Goyal MD [address] [address] Consulting Physician General Surgery 12/04/18 Huan Ureña MD [address] [address] Consulting Physician General Surgery 05/21/20 Cara Silva NP [address] [id number] Nurse Practitioner Surgery 07/19/21 Maisha Mabry MD [address] [place] [address] Medical Oncologist/Hematologis t Hematology and Oncology 08/09/24
[2025-10-11 12:10] VITALS: BP 156/77; PULSE 83; RESP 18; TEMP 35.9; O2SAT 96
--- NOTE | 2025-10-11 12:31 | ECG_ITS ---
Test Date: 2025-10-11 12:51:58 Measurements Intervals Bryan Rate: 80 P: 62 NE: 120 QRS: 18 QRSD: 98 T: 85 QT: 298 QTc: 344 Interpretive Statements SINUS RHYTHM NONSPECIFIC ST & T-WAVE ABNORMALITY- DIFFUSE LEADS BASELINE ARTIFACT- II, III, AVR, AVL, AVF BORDERLINE ECG No previous ECG available for comparison Electronically Signed On 10-11-2025 17:38:16 CAMPAIGN MANAGEMENT SPECIALIST by Josep Kearney D.O.
[2025-10-11 12:49] LABS: Hematocrit 43.2 % (35.0-42.0); Hemoglobin 13.7 g/dL (11.7-13.8); Immature Granulocyte Percent A 0.9 % (0.0-0.0); Lymphocytes Absolute Auto 1.89 K/mm3 (1.10-4.50); Mean Corpuscular HGB Conc 31.7 g/dL (32-36); Mean Corpuscular Hemoglobin 27.5 pg (27.0-31.0); Mean Corpuscular Volume 86.7 fL (78.0-102.0); Nucleated Red Blood Cells Absolute Auto 0.00 K/mm3 (0.00-0.00); Nucleated Red Blood Cells Perc 0.0 % (0-0.0); Platelet Count Result 189 K/mm3 (150-420); Red Blood Count 4.98 M/mm3 (4.20-5.40); White Blood Count 17.4 K/mm3 (4.8-10.8)
--- OUTSIDE RECORDS SUMMARY | 2025-10-11 12:50 | XMS_ITS ---
Author Organization [facility] D Address [address] [place] [address] Care Team Providers Care Ripening Room Attendant Name Role Phone Bianca Boothe MD Primary Care Provider [phone] Vincent Watts MD Unavailable [phone] Rose Marie Goyal MD Unavailable Huan Ureña MD Unavailable [phone] Cara Silva NP Unavailable [phone] Maisha Mabry MD Unavailable [phone] Active Problems Problem Noted Date Diagnosed Date Coronary artery disease invo lving [place] coronary artery of [place] heart without angina pectoris 07/16/2021 Assessment & [...] (05/13/2020): Added automatically from request for surgery [id number] History of right breast cancer 11/22/2018 Cancer Staging:Pathologic stage from 12/31/2018:Stage 0(pTis (DCIS), cN0, cM0, ER+, [place]+, HER2: Not Assessed) - Signed by Cara [...]
--- OUTSIDE RECORDS SUMMARY | 2025-10-11 12:50 | XMS_ITS | Clinical Summary ---
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
--- OUTSIDE RECORDS SUMMARY | 2025-10-11 12:50 | XMS_ITS | Clinical Summary ---
Author Organization [facility] D Address [address] [place] [address] Care Team Providers Care Proof Technician Helper Name Role Phone Bianca Boothe MD Primary Care Provider Vincent Watts MD Unavailable [phone] Rose Marie Goyal MD Unavailable [phone] Huan Ureña MD Unavailable [phone] Cara Silva NP Unavailable Maisha Mabry MD Unavailable Allergies Active Allergy Reactions Criticality Noted Date [...] Diagnosed Date Coronary artery disease invo lving [place] coronary artery of [place] heart without angina pectoris 07/16/2021 Assessment & [...] (05/13/2020): Added automatically from request for surgery [id number] History of right breast cancer 11/22/2018 Cancer [...] on file 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 Gender Identity Not on file Sexual [...] Pneumococcal vaccine 65+ Completed 07/23/2018, 12/10/2014 Insurance [facility] MEDICARE [facility] MEDICARE AET[employer] MEDICARE Advance Directives For more information, please contact: [phone] * Full Code (Latest Code Status on File) Date Activated Date Inactivated Comments 05/21/2020 2:31 PM 05/22/2020 4:20 PM Care Teams Proof Technician Helper Relationship Specialty Start Date End Date Bianca Boothe MD [address] [place] [address] PCP - General 06/26/14 Vincent Watts MD [address] DEPT RADIATION ONCOLOGY [place], [place] [phone] Consulting Physician Radiation Oncology 11/22/18 Rose Marie Goyal MD [address] [address] Consulting Physician General Surgery 12/04/18 Huan Ureña MD [address] [address] Consulting Physician General Surgery 05/21/20 Cara Silva NP [address] [id number] Nurse Practitioner Surgery 07/19/21 Maisha Mabry MD [address] [place] [address] Medical Oncologist/Hematologis t Hematology and Oncology 08/09/24
[2025-10-11 13:07] LABS: Add Urine Microscopic? YES; Appearance Urine Clear (Clear); Glucose Urine UA Negative (Negative); Leukocyte Esterase Ur Negative LEU/UL (Negative); Nitrate Urine Negative (Negative); Specific Grav Ur 1.025 (1.010-1.020)
--- NOTE | 2025-10-11 13:07 | ED.NAVMDI ---
HPI - Nausea/Vomiting/Diarrhea General Chief complaint: Nausea/Vomiting/Diarrhea Stated complaint: diarrhea Source: patient Mode of arrival: ambulatory Limitations: no limitations History of Present Illness HPI Narrative: Patient is an 80-year-old female with some diarrhea for the past few days after starting amoxicillin for a sinus infection. She said the relationship of amoxicillin and the diarrhea appears to be connected. She had some lower abdominal pain that has resolved at this time. No blood in her stool. MD elicited complaint: nausea and diarrhea Pertinent past history: other (GERD) Onset (ago): day(s) (3) Description of vomiting: none Description of diarrhea: watery Associated nausea: Yes Associated abdominal pain: Yes Location of pain: suprapubic Radiation: does not radiate Pain consistency: intermittent Severity: mild Pain scale (0-10): 2 Quality: cramping Exacerbating factors: none Relieving factors: none Context: other (Patient was started on amoxicillin from the primary doctor due to a sinus infection and bronchitis in the past week and now has diarrhea) Associated symptoms: denies other symptoms Treatment prior to arrival: none Related Data Home Medications ?Medication ?Instructions ?Recorded ?Confirmed ?Last Taken ?Type amitriptyline 10 mg tablet 5 mg PO HS 09/27/19 03/27/23 09/26/19 History omeprazole 20 mg capsule,delayed 20 mg PO DAILY 09/27/19 03/27/23 09/27/19 History release spironolactone 50 mg tablet 50 mg PO DAILY 09/27/19 03/27/23 09/27/19 History aspirin 81 mg tablet,delayed 81 mg PO DAILY 10/11/25 Unknown History release (Adult Aspirin Regimen) cholecalciferol (vitamin D3) 25 25 mcg PO DAILY 10/11/25 Unknown History mcg (1,000 unit) capsule (Vitamin D3) Allergies Allergy/AdvReac Type Severity Reaction Status Date / Time No Known Allergies Allergy Verified 10/11/25 12:09 Review of Systems Review of Systems: All systems reviewed & are unremarkable except as noted in HPI and below Constitutional: Constitutional: Reports no additional constitutional complaints Eyes: Eyes: Reports no additional eye complaints ENT: Reports system reviewed and no additional complaints, except as documented Cardiovascular: Cardiovascular: Reports no additional cardiovascular complaints Respiratory: Respiratory: Reports no additional respiratory complaints Gastrointestinal: Gastrointestinal: Reports no additional gastrointestinal complaints Genitourinary: Genitourinary: Reports no additional female genitourinary complaints Musculoskeletal: Musculoskeletal: Reports no additional musculoskeletal complaints Integumentary/Breasts: Skin/Breast: Reports system reviewed and no additional complaints, except as docu Neurologic: Reports system reviewed and no additional complaints, except as documented Psychiatric: Psychiatric: Reports no additional psychiatric complaints Endocrine: Endocrine: Reports no additional endocrine complaints Hematologic/Lymphatic: Hematologic/Lymphatic: Reports no additional hematologic/lymphatic complaints Allergic/Immunologic: Allergic/Immunologic: Reports no additional allergic/immunologic complaints [facility] Past Medical History Medical History (Updated 10/11/25 @ 16:33 by Eamon Paul MD) Uterine polyp Breast cancer GERD (gastroesophageal reflux disease) Surgical History Surgical History History of cholecystectomy S/P lumpectomy, right breast History of dilatation and curettage History of tonsillectomy Hx of cataract surgery History of foot surgery History of Achilles tendon repair Family History Family History Mother , of non-Hodgkin's lymphoma Acute myocardial infarction Father , ventricular fibrillation at age 71 No problems noted. Sibling Breast cancer Sibling Heart disease atrial fibrillation Social History Social History Smoking status: Never smoker Alcohol intake: never Substance use: never Living arrangements: with family Exam Const: General: healthy appearing Nutritional Appearance: well nourished Orientation/consciousness: patient oriented x3 HENMT: Head: normal to inspection Ears: external ears normal Face/Nose/Sinus: Normal external nose present Eyes: Conjunctivae: conjunctivae normal Cornea: corneas normal Pupils: Equal, round and reactive pupils present Neck: Neck: normal visual inspection Chest: Chest palpation & inspection: normal inspection of the chest Resp: Effort & Inspection: normal respiratory effort and not labored Auscultation: clear to auscultation bilaterally and no crackles Cardio: Rate: regular rate Rhythm: regular rhythm Heart sounds: no murmurs GI: Inspection: non-distended GI Palp: Yes Soft to palpation and No Tenderness to palpation present (GI) Auscultation: normal bowel sounds : General: Yes bladder normal to palpation Back/Spine/Pelvis: Back: no CVA tenderness Skin: General skin exam: normal color Rashes: no rashes Wounds: no wounds Neuro: General: patient oriented x3, moves all extremities and no meningeal signs Extrem: General: normal to inspection, no clubbing, cyanosis or edema and no pedal edema Psych: Mental Status: mental status grossly normal Affect: normal affect Attitude: cooperative Course Vital Signs Vital signs: Vital Signs Temperature 35.9 C L 10/11/25 12:10 Pulse Rate 83 10/11/25 12:10 Respiratory Rate 18 10/11/25 12:10 Blood Pressure 156/77 H 10/11/25 12:10 Pulse Oximetry 96 10/11/25 12:10 Oxygen Delivery Room Air 10/11/25 12:10 Temperature 35.9 C L 10/11/25 12:10 Pulse Rate 79 10/11/25 16:03 Respiratory Rate 20 10/11/25 16:03 Blood Pressure 151/73 H 10/11/25 16:03 Pulse Oximetry 96 10/11/25 16:03 Oxygen Delivery Room Air 10/11/25 16:03 [facility] Narrative Medical decision making narrative: Patient is an 80-year-old female with diarrhea for the past few days after using amoxicillin. Patient was unable to give us a stool sample during her hospital ER visit. We were looking for C diff. she does have an elevated WBC so I added a CT scan of the abdomen and pelvis to look for further issues. Check baseline labs. UA. Studies are resolved and there is an elevated WBC which could correlate with C diff colitis. CT scan was negative. We will go ahead and treat for C diff using Flagyl for 10 days. She was unable to give us a sample in the emergency room. Follow-up CBC at primary doctor this week suggested. Also C diff studies if possible. Patient wishes to go home at this time and not further stay in the emergency room or workup or admission. She felt ample workup has been done at this time and content with the workup. She is AAO x4 and with her and has the decision-making capacity to be discharged. Differential Diagnosis Differential Diagnosis: C diff, colitis, diverticulitis Lab Data [facility] Lab Attestation statement: I personally reviewed the patient's lab results. 10/11/25 12:45 10/11/25 12:45 Labs: Lab Results 10/11/25 10/11/25 Range/Units 12:45 12:49 WBC 17.4 H (4.8-10.8) K/mm3 RBC 4.98 (4.20-5.40) M/mm3 Hgb 13.7 (11.7-13.8) g/dL Hct 43.2 H (35.0-42.0) % MCV 86.7 (78.0-102.0) fL MCH 27.5 (27.0-31.0) pg MCHC 31.7 L (32-36) g/dL RDW 13.7 (11.6-14.4) % Plt Count 189 (150-420) K/mm3 MPV 10.8 (9.2-11.8) fl Immature Gran % (Auto) 0.9 H (0.0-0.0) % Neut % (Auto) 80.5 H (50.0-70.0) % Lymph % (Auto) 10.9 L (18.0-42.0) % Milam % (Auto) 6.4 (2.0-11.0) % Eos % (Auto) 0.8 L (1.0-6.0) % Baso % (Auto) 0.5 (0.0-1.0) % Lymph # (Auto) 1.89 (1.10-4.50) K/mm3 Milam # (Auto) 1.12 H (0.10-0.90) K/mm3 Eos # (Auto) 0.14 (0.02-0.50) K/mm3 Baso # (Auto) 0.09 (0.00-0.10) K/mm3 Abs Immat Gran (auto) 0.15 H (0.00-0.00) K/mm3 Absolute Neuts (auto) 13.99 H (1.70-7.20) K/mm3 Absolute Nucleated RBC 0.00 (0.00-0.00) K/mm3 Nucleated RBC % 0.0 (0-0.0) % Sodium 138 (137-145) mmol/L Potassium 4.2 (3.4-5.0) mmol/L Chloride 104 (98-107) mmol/L Carbon Dioxide 20 L (22-30) mmol/L Anion Gap 14 H (4-12) mmol/L BUN 18 H (7-17) mg/dL Creatinine 1.14 H (0.7-1.0) mg/dL Estim Creat Clear Calc 35 ml/min Estimated GFR 46 L (59 - ) Glucose 84 (65-110) mg/dL Calculated Osmolality 286 (285-295) mOsm/kg Lactic Acid 0.8 (0.7-2.0) mmol/L Calcium 10.6 H (8.4-10.2) mg/dL Total Bilirubin 0.9 (0.2-1.3) mg/dL AST 31 (14-36) U/L ALT 15 (6-35) U/L Alkaline Phosphatase 109 (38-126) U/L Troponin I < 0.012 (0.000-0.034) ng/mL Total Protein 6.9 (6.3-8.2) g/dL Albumin 4.2 (3.5-5.1) g/dL Urine Color Yellow (Yellow) Urine Appearance Clear (Clear) Urine pH 5.5 (5.0-8.0) Ur Specific [place] 1.025 H (1.010-1.020) Urine Protein Trace H (Negative) Urine Glucose (UA) Negative (Negative) Urine Ketones 2+ H (Negative) Ur Blood (Man) Negative (Negative) Urine Nitrate Negative (Negative) Urine Bilirubin 2+ H (Negative) Urine Urobilinogen 0.2 (0.2-1.0) mg/dL Leukocyte Esterase Rfl Negative (Negative) LOPEZ/UL Urine RBC 0-2 (0-2) /hpf Urine WBC 0-3 (0-3) /hpf Ur Squamous Epith Cells Few (Few) /hpf Urine Bacteria 1+ H (None) /hpf Hyaline Casts 3-4 H (None) /lpf Imaging Data Attestation: I personally reviewed and interpreted this imaging study as follows: Radiologist's impression: ITS Impressions Abdomen/Pelvis CT 10/11/25 16:13 IMPRESSION: 1. Limited noncontrast examination is not optimal to evaluate solid viscera, neoplasms and vascular structures. 2. Stable benign cystic lesions of the liver. Mild hepatomegaly and splenomegaly. 3. Atherosclerotic changes of origin of renal arteries. 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 ECG Data EKG #1: Attestation: I personally reviewed and interpreted this ECG as follows: ECG completion date: 10/11/25 ECG completion time: 16:08 normal rate, sinus rhythm, no ectopy, non-specific ST changes, normal QRS, normal QT and NL axis Discharge Plan Discharge Clinical Impression: Diarrhea Qualifiers: Diarrhea type: unspecified type Qualified Code(s): R19.7 - Diarrhea, unspecified Patient Disposition: Home Condition: Stable Instructions: Antibiotic Form, Acute Diarrhea (ED) Patient Language: Vietnamese Prescriptions: New metronidazole 500 mg tablet 500 mg PO TID 10 Days Qty: 30 0RF No Action amitriptyline 10 mg tablet 5 mg PO HS omeprazole 20 mg capsule,delayed release(DR/EC) 20 mg PO DAILY spironolactone 50 mg tablet 50 mg PO DAILY aspirin [Adult Aspirin Regimen] 81 mg tablet,delayed release (DR/EC) 81 mg PO DAILY cholecalciferol (vitamin D3) [Vitamin D3] 25 mcg (1,000 unit) capsule 25 mcg PO DAILY Follow-up/Referrals: Bianca Boothe MD [Primary Care Provider, Internal Medicine] Time of Disposition: 16:34
[2025-10-11 13:11] LABS: Alanine Aminotransferase 15 U/L (6-35); Albumin Level 4.2 g/dL (3.5-5.1); Alkaline Phosphatase 109 U/L (38-126); Anion Gap 14 mmol/L (4-12); Aspartate Amino Transferase 31 U/L (14-36); Bilirubin,Total 0.9 mg/dL (0.2-1.3); Blood Urea Nitrogen 18 mg/dL (7-17); Calcium 10.6 mg/dL (8.4-10.2); Carbon Dioxide 20 mmol/L (22-30); Chloride 104 mmol/L (98-107); Estimated CRCL calculation 35 ml/min; Estimated Glomerular Filt Rate 46; Glucose 84 mg/dL (65-110); Osmolality Calculated 286 mOsm/kg (285-295); Potassium 4.2 mmol/L (3.4-5.0); Sodium 138 mmol/L (137-145); Total Protein 6.9 g/dL (6.3-8.2)
[2025-10-11 13:23] LABS: Troponin I < 0.012 ng/mL (0.000-0.034)
[2025-10-11 13:30] VITALS: BP 170/78; PULSE 77; RESP 20; O2SAT 96
[2025-10-11 14:45] VITALS: BP 155/80; PULSE 80; RESP 20; O2SAT 96
[2025-10-11 16:03] VITALS: BP 151/73; PULSE 79; RESP 20; O2SAT 96
[2025-10-11 16:49] VITALS: BP 140/64; PULSE 80; RESP 20; O2SAT 97
== END 2025-10-11 16:56 | disposition home or self-care (01) ==
PROVIDERS: Emergency Provider Emergency Medicine; PCP Internal Medicine
DX: R19.7 Diarrhea, unspecified (principal); Z79.82 Long term (current) use of aspirin
CPT/HCPCS: 36415; 74176; 80053; 81001; 83605; 84484; 85025; 93005; 99284; A9270

== ENCOUNTER 2025-10-13 11:29 | Outpatient (CLI) | payer MEDICARE, SELFPAY ==
[2025-10-13 11:45] LABS: Hematocrit 44.4 % (35.0-42.0); Hemoglobin 14.2 g/dL (11.7-13.8); Mean Corpuscular HGB Conc 32.0 g/dL (32-36); Mean Corpuscular Hemoglobin 27.3 pg (27.0-31.0); Mean Corpuscular Volume 85.4 fL (78.0-102.0); Platelet Count Result 219 K/mm3 (150-420); Red Blood Count 5.20 M/mm3 (4.20-5.40); White Blood Count 12.7 K/mm3 (4.8-10.8)
[2025-10-13 12:21] LABS: Alanine Aminotransferase 18 U/L (6-35); Albumin Level 4.1 g/dL (3.5-5.1); Alkaline Phosphatase 102 U/L (38-126); Anion Gap 11 mmol/L (4-12); Aspartate Amino Transferase 34 U/L (14-36); Bilirubin,Total 0.5 mg/dL (0.2-1.3); Blood Urea Nitrogen 14 mg/dL (7-17); CRP 7.8 mg/dL (<1.0); Calcium 10.7 mg/dL (8.4-10.2); Carbon Dioxide 23 mmol/L (22-30); Chloride 105 mmol/L (98-107); Estimated Glomerular Filt Rate 51; Glucose 140 mg/dL (65-110); Osmolality Calculated 290 mOsm/kg (285-295); Potassium 3.9 mmol/L (3.4-5.0); Sodium 139 mmol/L (137-145); Total Protein 6.4 g/dL (6.3-8.2)
--- OUTSIDE RECORDS SUMMARY | 2025-10-13 13:23 | XMS_ITS | Clinical Summary ---
Author Organization [facility] Address [address] [place] [address] Care Team Providers Care Nurse Orthopedic Name Role Phone Bianca Boothe MD Primary [...] Comments Blood Pressure 160/82 10/28/2022 10:12 AM NET TECHNICAL ARCHITECT Pulse 85 07/03/2018 11:31 AM CDT Temperature - - Respiratory Rate 16 07/03/2018 11:31 AM CDT Oxygen Saturation - - Inhaled Oxygen Concentration - - Weight 89.4 kg (197 lb) 10/28/2022 10:12 AM NET TECHNICAL ARCHITECT Height 167.6 cm (5' 6) 10/28/2022 10:12 AM NET TECHNICAL ARCHITECT Body Mass Index 31.8 10/28/2022 10:12 AM NET TECHNICAL ARCHITECT Plan of Treatment Health Maintenance Due Date [...] Maintenance Insurance [employer] PPO MCR Care Teams Nurse Orthopedic Relationship Specialty Start Date End Date Bianca Boothe MD [address] [place] [address] PCP - General Internal Medicine 07/03/18
--- OUTSIDE RECORDS SUMMARY | 2025-10-13 13:23 | XMS_ITS | Clinical Summary ---
Author Organization [facility] D Address [address] [place] [address] Care Team Providers Care Digital Business Analyst Name Role Phone Bianca Boothe MD Primary Care Provider Vincent Watts MD Unavailable Rose Marie Goyal MD Unavailable [phone] Huan Ureña MD Unavailable [phone] Cara Silva NP Unavailable Maisha Mabry [...] Diagnosed Date Coronary artery disease invo lving [place] coronary artery of [place] heart without angina pectoris 07/16/2021 Assessment & [...] (05/13/2020): Added automatically from request for surgery [id number] History of right breast cancer 11/22/2018 Cancer Staging:Pathologic stage from 12/31/2018:Stage 0(pTis (DCIS), cN0, cM0, ER+, [place]+, HER2: Not Assessed) - Signed by Cara [...] on file 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 Gender Identity Not on file Sexual Orientation [...] Pneumococcal vaccine 65+ Completed 07/23/2018, 12/10/2014 Insurance [facility] MEDICARE [facility] MEDICARE AETNA MEDICARE Advance Directives For more information, please contact: [phone] * Full Code (Latest Code Status on File) Date Activated Date Inactivated Comments 05/21/2020 2:31 PM 05/22/2020 4:20 PM Care Teams Digital Business Analyst Relationship Specialty Start Date End Date Bianca Boothe MD [address] [place] [address] PCP - General 06/26/14 Vincent Watts MD [address] DEPT RADIATION ONCOLOGY [place], [place] [phone] Consulting Physician Radiation Oncology 11/22/18 Rose Marie Goyal MD [address] [address] Consulting Physician General Surgery 12/04/18 Huan Ureña MD [address] [address] Consulting Physician General Surgery 05/21/20 Cara Silva NP [address] [id number] Nurse Practitioner Surgery 07/19/21 Maisha Mabry MD [address] [place] [address] Medical Oncologist/Hematologis t Hematology and Oncology 08/09/24
--- OUTSIDE RECORDS SUMMARY | 2025-10-13 13:23 | XMS_ITS | Clinical Summary ---
Author Organization [facility] Address [address] [place] [address] Care Team Providers Care Cylinder Devalver Name Role Phone Bianca Boothe MD Primary Care Provider [phone] Social History Tobacco Use Types Packs/Day Years Used Date Smoking Tobacco: Never Assessed Comments Unknown Sex and Gender Information Value Date Recorded Sex Assigned at Not on file Legal Sex Female 5:57 PM DIRECTOR PHARMACOLOGY Gender Identity Not on file Sexual Orientation [...] age to complete this topic Insurance [facility] Care Teams Cylinder Devalver Relationship Specialty Start Date End Date Bianca Boothe MD PCP - General INTERNAL MEDICINE 02/13/20
--- OUTSIDE RECORDS SUMMARY | 2025-10-13 13:23 | XMS_ITS ---
Author Organization [facility] D Address [address] [place] [address] Care Team Providers Care Sail Lay Out Worker Name Role Phone Bianca Boothe MD Primary Care Provider Vincent Watts MD Unavailable [phone] Rose Marie Goyal MD Unavailable Huan Ureña MD Unavailable [phone] Cara Silva NP Unavailable Maisha Mabry MD Unavailable [phone] Active Problems Problem Noted Date Diagnosed Date Coronary artery disease invo lving [place] coronary artery of [place] heart without angina pectoris 07/16/2021 Assessment & [...] (05/13/2020): Added automatically from request for surgery [id number] History of right breast cancer 11/22/2018 Cancer Staging:Pathologic stage from 12/31/2018:Stage 0(pTis (DCIS), cN0, cM0, ER+, [place]+, HER2: Not Assessed) - Signed by Cara [...]
== END 2025-10-13 11:30 | disposition home or self-care (01) ==
LOC: CHSLAB 11:31
PROVIDERS: PCP Internal Medicine; Visit Provider Internal Medicine
DX: R10.32 Left lower quadrant pain (principal)
CPT/HCPCS: 36415; 80053; 83605; 85027; 85652; 86140

== ENCOUNTER 2025-10-14 07:08 | Outpatient (CLI) | payer MEDICARE, SELFPAY ==
[2025-10-14 07:20] LABS: Add Urine Microscopic? NO; Appearance Urine Clear (Clear); Glucose Urine UA Negative (Negative); Leukocyte Esterase Ur Negative (Negative); Nitrate Urine Negative (Negative); Specific Grav Ur 1.010 (1.010-1.020)
[2025-10-14 08:07] LABS: Toxigenic C. Diff POSITIVE (NEGATIVE)
[2025-10-14 08:56] LABS: CDiff Toxin A&B Ag Positive (Negative); Clostridium Difficile GDH Ag Positive (Negative)
== END 2025-10-14 07:09 | disposition home or self-care (01) ==
LOC: CHSLAB 07:10
PROVIDERS: PCP Internal Medicine; Visit Provider Internal Medicine
DX: R10.32 Left lower quadrant pain (principal)
CPT/HCPCS: 81003; 87086; 87186; 87324; 87449; 87493

== ENCOUNTER 2025-10-21 12:05 | Outpatient (CLI) | payer MEDICARE, SELFPAY ==
--- OUTSIDE RECORDS SUMMARY | 2025-10-21 12:34 | XMS_ITS ---
Author Organization [facility] D Address [address] [place] [address] Care Team Providers Care Jewelry Coater Name Role Phone Bianca Boothe MD Primary Care Provider Vincent Watts MD Unavailable [phone] Rose Marie Goyal MD Unavailable Huan Ureña MD Unavailable [phone] Cara Silva NP Unavailable [phone] Maisha Mabry MD Unavailable [phone] Active Problems Problem Noted Date Diagnosed Date Coronary artery disease invo lving [place] coronary artery of [place] heart without angina pectoris 07/16/2021 Assessment & [...] (05/13/2020): Added automatically from request for surgery [id number] History of right breast cancer 11/22/2018 Cancer Staging:Pathologic stage from 12/31/2018:Stage 0(pTis (DCIS), cN0, cM0, ER+, [place]+, HER2: Not Assessed) - Signed by Cara [...]
--- OUTSIDE RECORDS SUMMARY | 2025-10-21 12:34 | XMS_ITS | Clinical Summary ---
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
--- OUTSIDE RECORDS SUMMARY | 2025-10-21 12:34 | XMS_ITS | Clinical Summary ---
Author Organization [facility] D Address [address] [place] [address] Care Team Providers Care Wide Piece Goods Inspector Name Role Phone Bianca Boothe MD Primary Care Provider Vincent Watts MD Unavailable Rose Marie Goyal MD Unavailable [phone] Huan Ureña MD Unavailable [phone] Cara Silva NP Unavailable Maisha Mabry [...] Diagnosed Date Coronary artery disease invo lving [place] coronary artery of [place] heart without angina pectoris 07/16/2021 Assessment & [...] (05/13/2020): Added automatically from request for surgery [id number] History of right breast cancer 11/22/2018 Cancer Staging:Pathologic stage from 12/31/2018:Stage 0(pTis (DCIS), cN0, cM0, ER+, [place]+, HER2: Not Assessed) - Signed by Cara [...] on file 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 Gender Identity Not on file Sexual Orientation [...] Pneumococcal vaccine 65+ Completed 07/23/2018, 12/10/2014 Insurance [facility] MEDICARE [facility] MEDICARE [employer] MEDICARE Advance Directives For more information, please contact: [phone] * Full Code (Latest Code Status on File) Date Activated Date Inactivated Comments 05/21/2020 2:31 PM 05/22/2020 4:20 PM Care Teams Wide Piece Goods Inspector Relationship Specialty Start Date End Date Bianca Boothe MD [address] [place] [address] PCP - General 06/26/14 Vincent Watts MD [address] DEPT RADIATION ONCOLOGY [place], [place] [id number] Consulting Physician Radiation Oncology 11/22/18 Rose Marie Goyal MD [address] [address] Consulting Physician General Surgery 12/04/18 Huan Ureña MD [address] [address] Consulting Physician General Surgery 05/21/20 Cara Silva NP [address] [id number] Nurse Practitioner Surgery 07/19/21 Maisha Mabry MD [address] [place] [address] Medical Oncologist/Hematologis t Hematology and Oncology 08/09/24
--- OUTSIDE RECORDS SUMMARY | 2025-10-21 12:34 | XMS_ITS | Clinical Summary ---
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
[2025-10-21 12:58] LABS: Toxigenic C. Diff POSITIVE (NEGATIVE)
[2025-10-21 14:03] LABS: CDiff Toxin A&B Ag Positive (Negative)
[2025-10-21 14:04] LABS: Clostridium Difficile GDH Ag Positive (Negative)
[2025-10-21 14:39] LABS: Hematocrit 44.1 % (35.0-42.0); Hemoglobin 13.9 g/dL (11.7-13.8); Mean Corpuscular HGB Conc 31.5 g/dL (32-36); Mean Corpuscular Hemoglobin 27.8 pg (27.0-31.0); Mean Corpuscular Volume 88.2 fL (78.0-102.0); Platelet Count Result 247 K/mm3 (150-420); Red Blood Count 5.00 M/mm3 (4.20-5.40); White Blood Count 10.7 K/mm3 (4.8-10.8)
[2025-10-21 15:08] LABS: Alanine Aminotransferase 21 U/L (6-35); Albumin Level 4.1 g/dL (3.5-5.1); Alkaline Phosphatase 75 U/L (38-126); Anion Gap 9 mmol/L (4-12); Aspartate Amino Transferase 36 U/L (14-36); Bilirubin,Total 0.4 mg/dL (0.2-1.3); Blood Urea Nitrogen 16 mg/dL (7-17); Calcium 10.8 mg/dL (8.4-10.2); Carbon Dioxide 28 mmol/L (22-30); Chloride 104 mmol/L (98-107); Estimated Glomerular Filt Rate 56; Glucose 101 mg/dL (65-110); Osmolality Calculated 293 mOsm/kg (285-295); Potassium 4.6 mmol/L (3.4-5.0); Sodium 141 mmol/L (137-145); Total Protein 6.2 g/dL (6.3-8.2)
== END 2025-10-21 12:06 | disposition home or self-care (01) ==
PROVIDERS: PCP Internal Medicine; Visit Provider Internal Medicine
DX: R19.7 Diarrhea, unspecified (principal); A04.72 Enterocolitis due to Clostridium difficile, not specified as recurrent
CPT/HCPCS: 36415; 80053; 83605; 85027; 87324; 87449; 87493